=== PATIENT | female | born 1995 | race Caucasian/White ===

== ENCOUNTER → 2021-03-21 11:49 | Outpatient (BNVA) | payer OTHER, SELFPAY | PROVIDERS: Visit Provider Obstetrics & Gynecology ==

== ENCOUNTER 2021-04-15 22:56 | Emergency (ER) | payer OTHER, SELFPAY ==
[2021-04-15 23:09] VITALS: BP 124/81; PULSE 103; RESP 20; TEMP 36; O2SAT 98; BMI 29.0
--- NOTE | 2021-04-15 23:34 | ED.URI ---
HPI - URI/Sore Throat General Chief Complaint: Upper Respiratory Symptoms Stated Complaint: flu like symptoms Time Seen by Provider: 04/15/21 23:34 Source: patient Mode of arrival: ambulatory Limitations: no limitations History of Present Illness HPI Narrative: Patient comes emergency room complaining of body aches. Patient also complaining of dry cough for 1 week. Patient states that 2 of her 3 children tested positive for COVID. Patient denies fever chills, no respiratory difficulty, no chest pain. Related Data Home Medications Medication Instructions Recorded Confirmed fluticasone propionate 50 1 spray INTRANASAL DAILY 03/17/20 03/17/20 mcg/actuation nasal spray,suspension medroxyprogesterone 150 mg/mL 1 ml IM [id number] 03/17/20 03/17/20 intramuscular suspension Previous Rx's Medication Instructions Recorded albuterol sulfate 90 mcg/actuation 2 puff PO Q6H PRN 30 Days #6.7 g 02/12/21 aerosol inhaler ibuprofen 600 mg tablet 600 mg PO TID PRN #30 tab 04/16/21 Allergies Allergy/AdvReac Type Severity Reaction Status Date / Time No Known Allergies Allergy Verified 03/13/20 08:08 Review of Systems Review of Systems: Constitutional : No Weight loss, No Fever, No Chills, No Night Sweats, No Fatigue, complaining of diffuse body aches and malaise ENT/Mouth : No Hearing loss, No Ear Pain, No Nasal Congestion, No Sinus Pain, No Hoarseness, No sore throat, No Rhinorrhea, No Swallowing Difficulty Eyes: No Eye Pain, No Swelling, No Redness, No Foreign Body, No Discharge, No Vision Changes Cardiovascular : No Chest Pain, No SOB, No Dyspnea on Exertion, No Orthopnea, No Edema, No Palpitations Respiratory : Complaining of dry Cough, No Sputum, No Wheezing, No Smoke Exposure, No Dyspnea Gastrointestinal : No Nausea, No Vomiting, No Diarrhea, No Constipation, No abdominal Pain, No Hematochezia, No Melena Genitourinary : no irregular bleeding, No Dysuria, No Urinary Frequency, No Hematuria, No Urinary Incontinence, No Urgency, No Flank Pain, No Urinary Flow Changes, No Hesitancy Musculoskeletal : No joint pain, No Myalgias, No Joint Swelling Skin : No Skin Lesions, No rash Neuro : No Weakness, No Numbness, No Paresthesias, No Loss of Consciousness, No Dizziness, No Headache Psych : No Anxiety/Panic, No Depression, No SI/HI/AH/VH, No Social Issues, Heme/Lymph: No Bruising, No Bleeding,No Lymphadenopathy Endocrine : No Polyuria, No Polydipsia, No Temperature Intolerance [facility] Past Medical History Medical History History of asthma Social History Social History Alcohol intake: never Advance Directives: No Advance Directives Information Provided: Yes Patient : No Physical Exam Vital Signs: Vital Signs: Last Vital Signs Temp 96.8 F 04/15/21 23:09 Pulse 103 H 04/15/21 23:09 Resp 20 04/15/21 23:09 BP 124/81 04/15/21 23:09 Pulse Ox 98 04/15/21 23:09 BMI result Body Mass Index 29.0 Const: Other: Appearance: Alert. Oriented X3. No acute distress. Eyes: Pupils equal, round and reactive to light. ENT: Pharynx normal. Neck: Normal inspection. Neck supple. No lymph nodes noted. No crepitus CVS: Normal heart rate and rhythm. Pulses normal. Normal S1 and S2 Respiratory: No respiratory distress. Breath sounds normal. No Wheezing. No rales Abdomen: Soft and nontender. No rigidity. No distention. good BS x4 Skin: Skin warm and dry. Normal skin color. Normal skin turgor. Extremities: No lower extremity edema. No Lacerations. No Rash Neuro: Oriented X 3. No motor deficit. No sensory deficit. Moving all extermities. No slurred speech. Course Course Course Narrative: positive for COVID-19. MDM - URI/Sore Throat Lab Data Labs: Lab Results 04/15/21 Range/Units 23:31 COVID-19 ([facility]) Positive A (Negative) COVID-19 Clin Com See Note Discharge Plan Discharge Clinical Impression: COVID-19 Patient Disposition: Home, Self-Care Instructions: COVID-19 (Coronavirus Disease 2019) (ED) Additional Instructions: Please follow-up with your primary care physician tomorrow. If you have any worsening or new symptoms, please return to the emergency room or call 911 Prescriptions: New ibuprofen 600 mg tablet 600 mg PO TID PRN (Reason: fever or pain) Qty: 30 RF: 0 No Action albuterol sulfate 90 mcg/actuation HFA aerosol inhaler 2 puff PO Q6H PRN (Reason: Shortness Of Breath) 30 Days Qty: 6.7 RF: 4 fluticasone propionate 50 mcg/actuation spray,suspension 1 spray intranasal DAILY RF: 0 medroxyprogesterone 150 mg/mL suspension 1 ml IM [id number] RF: 0
[2021-04-15 23:57] LABS: COVID-19 Test Positive (Negative)
[2021-04-16] MEDS: Ibuprofen 600 MG TABLET PO (00:46)
== END 2021-04-16 00:59 | disposition home or self-care (01) ==
PROVIDERS: Emergency Provider Emergency Medicine; PCP Internal Medicine
DX: U07.1 COVID-19 (principal)
CPT/HCPCS: 36415; 87635; 99283; 99284

== ENCOUNTER 2021-05-01 22:36 | Emergency (ER) | payer OTHER, SELFPAY ==
[2021-05-01 22:43] VITALS: BP 87/60; PULSE 110; RESP 32; TEMP 36.6; O2SAT 98; BMI 27.4
[2021-05-01] MEDS: Albuterol Sulfate (0.083%) 2.5 MG/3 ML VIAL.NEB 10 MG INHALE (23:10)
--- NOTE | 2021-05-01 23:10 | ED.SOB ---
HPI - SOB/Dyspnea General Chief Complaint: Dyspnea Stated Complaint: asthma Time Seen by Provider: 05/01/21 22:52 Source: patient Mode of arrival: ambulatory Limitations: no limitations History of Present Illness HPI Narrative: Patient comes to emergency room, and asthma exacerbation over the last 5 days. Patient has been using inhaler without relief. Patient states she tested positive for COVID 2 weeks ago. Related Data Home Medications Medication Instructions Recorded Confirmed fluticasone propionate 50 1 spray INTRANASAL DAILY 03/17/20 03/17/20 mcg/actuation nasal spray,suspension medroxyprogesterone 150 mg/mL 1 ml IM [id number] 03/17/20 03/17/20 intramuscular suspension Previous Rx's Medication Instructions Recorded albuterol sulfate 90 mcg/actuation 2 puff PO Q6H PRN 30 Days #6.7 g 02/12/21 aerosol inhaler ibuprofen 600 mg tablet 600 mg PO TID PRN #30 tab 04/16/21 albuterol sulfate 90 mcg/actuation 2 puff INHALATION Q4-6H PRN #6.7 g 05/02/21 aerosol inhaler (ProAir HFA) prednisone 50 mg tablet 50 mg PO DAILY #5 tab 05/02/21 Allergies Allergy/AdvReac Type Severity Reaction Status Date / Time No Known Allergies Allergy Verified 05/01/21 22:46 Review of Systems Review of Systems: Constitutional : No Weight loss, No Fever, No Chills, No Night Sweats, No Fatigue, No Malaise ENT/Mouth : No Hearing loss, No Ear Pain, No Nasal Congestion, No Sinus Pain, No Hoarseness, No sore throat, No Rhinorrhea, No Swallowing Difficulty Eyes: No Eye Pain, No Swelling, No Redness, No Foreign Body, No Discharge, No Vision Changes Cardiovascular : No Chest Pain, No SOB, No Dyspnea on Exertion, No Orthopnea, No Edema, No Palpitations Respiratory : Complaining of, no sputum, complaining of wheezing and shortness of breath Gastrointestinal : No Nausea, No Vomiting, No Diarrhea, No Constipation, No abdominal Pain, No Hematochezia, No Melena Genitourinary : no irregular bleeding, No Dysuria, No Urinary Frequency, No Hematuria, No Urinary Incontinence, No Urgency, No Flank Pain, No Urinary Flow Changes, No Hesitancy Musculoskeletal : No joint pain, No Myalgias, No Joint Swelling Skin : No Skin Lesions, No rash Neuro : No Weakness, No Numbness, No Paresthesias, No Loss of Consciousness, No Dizziness, No Headache Psych : No Anxiety/Panic, No Depression, No SI/HI/AH/VH, No Social Issues, Heme/Lymph: No Bruising, No Bleeding,No Lymphadenopathy Endocrine : No Polyuria, No Polydipsia, No Temperature Intolerance PMF Past Medical History Medical History History of asthma Social History Social History Alcohol intake: never Advance Directives: No Patient : No Physical Exam Vital Signs: Vital Signs: Last Vital Signs Temp 97.9 F 05/01/21 22:43 Pulse 93 05/01/21 23:11 Resp 25 H 05/01/21 23:11 BP 87/60 L 05/01/21 22:43 Pulse Ox 98 05/01/21 22:43 BMI result Body Mass Index 27.4 Const: Other: Appearance: Alert. Oriented X3. Eyes: Pupils equal, round and reactive to light. ENT: Pharynx normal. Neck: Normal inspection. Neck supple. No lymph nodes noted. No crepitus CVS: Normal heart rate and rhythm. Pulses normal. Normal S1 and S2 Respiratory: In moderate respiratory distress, speaking in fragmented sentences, bilateral wheezing Abdomen: Soft and nontender. No rigidity. No distention. good BS x4 Skin: Skin warm and dry. Normal skin color. Normal skin turgor. Extremities: No lower extremity edema. No lower extremity edema. No Lacerations. No Rash Neuro: Oriented X 3. No motor deficit. No sensory deficit. Moving all extermities. No slurred speech. Course Course Course Narrative: Patient no longer wheezing, oxygen saturation 99% on room a, on physical exam patient is no longer wheezing, speaking full sentences, patient asymptomatic. MDM - SOB/Dyspnea Lab Data Labs: Lab Results 05/01/21 Range/Units 23:24 COVID-19 ([facility]) Negative (Negative) COVID-19 Clin Com See Note Discharge Plan Discharge Clinical Impression: Asthma with exacerbation Qualifiers: Asthma severity: unspecified severity Asthma persistence: unspecified Qualified Code(s): J45.901 - Unspecified asthma with (acute) exacerbation Patient Disposition: Home, Self-Care Instructions: Asthma (ED) Additional Instructions: Please follow-up with your primary care physician tomorrow. If you have any worsening or new symptoms, please return to the emergency room or call 911 Prescriptions: New albuterol sulfate [ProAir HFA] 90 mcg/actuation HFA aerosol inhaler 2 puff inhalation Q4-6H PRN (Reason: shortness of breath or wheezing) Qty: 6.7 RF: 0 prednisone 50 mg tablet 50 mg PO DAILY Qty: 5 RF: 0 No Action albuterol sulfate 90 mcg/actuation HFA aerosol inhaler 2 puff PO Q6H PRN (Reason: Shortness Of Breath) 30 Days Qty: 6.7 RF: 4 fluticasone propionate 50 mcg/actuation spray,suspension 1 spray intranasal DAILY RF: 0 medroxyprogesterone 150 mg/mL suspension 1 ml IM [id number] RF: 0 ibuprofen 600 mg tablet 600 mg PO TID PRN (Reason: fever or pain) Qty: 30 RF: 0
[2021-05-01 23:11] VITALS: PULSE 93; RESP 25; O2SAT 98
[2021-05-01] MEDS: Magnesium Sulfate/H2O 2 GM/50 ML PIGGYBACK IV (23:16)
[2021-05-01] MEDS: methylPREDNISolone Sod Succ 125 MG/2 ML VIAL IVPUSH (23:16)
[2021-05-01] MEDS: 0.9 % Sodium Chloride 1,000 ML 999 ML IVCONT (23:16)
[2021-05-01 23:53] LABS: COVID-19 Test Negative (Negative); IDNOW Serial# 9DD0AD1C
== END 2021-05-02 02:03 | disposition home or self-care (01) ==
PROVIDERS: Emergency Provider Emergency Medicine; PCP Internal Medicine
DX: J45.901 Unspecified asthma with (acute) exacerbation (principal); Z20.822 Contact with and (suspected) exposure to COVID-19
CPT/HCPCS: 36415; 87635; 94640; 94644; 96365; 96366; 96375; 99284; J2930; J3475

== ENCOUNTER 2021-05-21 09:04 | Outpatient (REF) | payer OTHER, SELFPAY ==
[2021-05-21 16:04] LABS: CT PCR NOT DETECTED (Not Detect.); NG PCR NOT DETECTED (Not Detect.)
== END 2021-05-21 09:05 | disposition home or self-care (01) ==
LOC: HO.LAB 09:04
PROVIDERS: PCP Internal Medicine; Visit Provider Obstetrics & Gynecology
DX: Z30.430 Encounter for insertion of intrauterine contraceptive device (principal)
CPT/HCPCS: 58300; 87491; 87591

== ENCOUNTER 2021-06-04 12:22 | Outpatient (REF) | payer OTHER, SELFPAY ==
[2021-06-05 09:05] LABS: HBc Num1 0.06 S/CO (0.00-0.79); HBsAGNum1 0.19 S/CO (0.00-0.99); Hepatitis B Core Antibody Nonreactive (Nonreactive); Hepatitis B Surface Antigen Negative (Negative); ~Hepatitis B Surface Antibody NONREACTIVE (Nonreactive)
[2021-06-05 17:27] LABS: Rubella IgG Antibody 7.98 Index
[2021-06-06 18:21] LABS: TS Negative Control Passed; TS Panel A 2; TS Panel B 0; TS Positive Control Passed; TSpotTB Negative (Negative)
== END 2021-06-04 12:23 | disposition home or self-care (01) ==
LOC: HO.LAB 12:22
PROVIDERS: PCP Internal Medicine; Visit Provider Nurse Practitioner Family
DX: Z01.84 Encounter for antibody response examination (principal); Z11.1 Encounter for screening for respiratory tuberculosis; Z13.9 Encounter for screening, unspecified
CPT/HCPCS: 36415; 86481; 86704; 86706; 86735; 86762; 86765; 86787; 87340

== ENCOUNTER → 2021-06-20 12:05 | Outpatient (BNVA) | payer OTHER, SELFPAY | PROVIDERS: PCP Internal Medicine; Visit Provider Obstetrics & Gynecology | DX: Z30.431 Encounter for routine checking of intrauterine contraceptive device (principal) | CPT/HCPCS: 81025; 99212 ==

== ENCOUNTER 2021-09-04 11:14 | Outpatient (REF) | payer OTHER, SELFPAY ==
--- NOTE | ~2021-09-04 | XR_ITS ---
EXAMINATION: XR HIP, RIGHT CLINICAL INFORMATION: Pain right hip. COMPARISON: None TECHNIQUE: Two views of the right hip. FINDINGS: Bones and soft tissues are normal. No fracture. Alignment is anatomic. Hip joint space is maintained. Incidental finding of an IUD is noted in the pelvis. XR/XR hip RT min 2V IMPRESSION: Normal right hip.
[2021-09-04 11:40] LABS: MANUAL DIFF FLAG NO
[2021-09-04 12:05] LABS: Basophils Absolute Auto 0.1 X10*3/uL (0.0-0.2); Basophils Percent Auto 0.8 % (0-2); Eosinophils Absolute Auto 0.5 X10*3/uL (0.0-0.4); Eosinophils Percent Auto 5.5 % (0-4); Hematocrit 43.7 % (37.0-47.0); Hemoglobin 14.2 g/dl (12.0-16.0); Imm Gran Abs Auto 0.02 X10*3/uL (0.00-0.03); Imm Gran Pct Auto 0.2 % (0.0-0.4); Lymphocytes Absolute Auto 2.6 X10*3/uL (1.2-4.9); Lymphocytes Percent Auto 31.2 % (20-40); Mean Corpuscular HGB Conc 32.5 g/dl (31.0-35.0); Mean Corpuscular Hemoglobin 27.6 pg (27.0-33.0); Mean Platelet Volume 10.1 fL (9.4-12.3); Monocytes Absolute Auto 0.5 X10*3/uL (0.1-1.2); Monocytes Percent Auto 5.7 % (2-11); Neutrophils Absolute Auto 4.7 x10*3/uL (2.0-8.3); Neutrophils Percent Auto 56.6 % (45-73); Platelet Count 272 X10*3/uL (160-400); Red Blood Count 5.14 X10*6/uL (4.20-5.50); Red Cell Distribution Width 12.7 % (11.0-16.0); White Blood Count 8.4 X10*3/uL (4.8-10.8)
[2021-09-04 12:42] LABS: Alanine Aminotransferase 14 U/L (0-31); Albumin Level 4.3 g/dL (3.5-5.0); Alkaline Phosphatase 92 U/L (39-117); Anion Gap 11 (12-20); Aspartate Amino Transferase 14 U/L (5-31); Bilirubin Total 0.6 mg/dL (0.0-1.0); Blood Urea Nitrogen 19 mg/dL (9-16); Calcium 9.8 mg/dL (8.4-10.2); Carbon Dioxide 28 mmol/L (22-29); Chloride 103 mmol/L (96-108); Cholesterol 189 mg/dL; Estimated Glomerular Filt Rate > 60; Glucose Fasting 90 mg/dL (60-99); HDL Cholesterol 43 mg/dL; LDL Cholesterol Calculated 107 mg/dl; Potassium 4.7 mmol/L (3.3-5.1); Sodium 137 mmol/L (135-145); Total Protein 7.3 g/dL (6.5-8.0); Triglycerides 199 mg/dL
[2021-09-04 12:45] LABS: ~HepC Num1 0.55 S/CO (0.00-0.79); ~Hepatitis C Antibody Nonreactive (Nonreactive)
[2021-09-04 12:48] LABS: Thyroid Stimulating Hormone 0.85 uIU/mL (0.32-4.0); Vitamin D 25-OH Total 16.3 ng/mL (>30)
[2021-09-04 13:23] LABS: UPreg QC Valid YES; Urine Pregnancy NEGATIVE (NEGATIVE)
== END 2021-09-04 11:15 | disposition home or self-care (01) ==
LOC: HO.XRAY 11:14
PROVIDERS: Absent Provider Nurse Practitioner Family; PCP Internal Medicine; Visit Provider Internal Medicine
DX: M25.551 Pain in right hip (principal); E66.9 Obesity, unspecified; Z68.31 Body mass index [BMI] 31.0-31.9, adult; E55.9 Vitamin D deficiency, unspecified; D64.9 Anemia, unspecified; E78.5 Hyperlipidemia, unspecified; Z78.9 Other specified health status
CPT/HCPCS: 36415; 73502; 80053; 80061; 81025; 82306; 84443; 85025; 86803

== ENCOUNTER 2021-10-10 10:42 | Outpatient (REF) | payer OTHER, SELFPAY ==
[2021-10-11 01:54] LABS: CT PCR NOT DETECTED (Not Detect.); NG PCR NOT DETECTED (Not Detect.)
[2021-10-11 11:03] LABS: BV Int Neg Control Negative (Negative); BV Int Pos Control Positive (Positive)
== END 2021-10-10 10:43 | disposition home or self-care (01) ==
LOC: HO.LAB 10:42
PROVIDERS: Visit Provider Advanced Practice Midwife
DX: Z01.419 Encounter for gynecological examination (general) (routine) without abnormal findings (principal); Z20.2 Contact with and (suspected) exposure to infections with a predominantly sexual mode of transmission; Z79.899 Other long term (current) drug therapy
CPT/HCPCS: 87480; 87491; 87510; 87591; 87660; 88142

== ENCOUNTER 2021-12-04 12:03 | Outpatient (REF) | payer OTHER, SELFPAY ==
[2021-12-05 12:21] LABS: CT PCR NOT DETECTED (Not Detect.); NG PCR NOT DETECTED (Not Detect.)
[2021-12-05 13:05] LABS: BV Int Neg Control Negative (Negative); BV Int Pos Control Positive (Positive)
== END 2021-12-04 12:04 | disposition home or self-care (01) ==
LOC: HO.LAB 12:03
PROVIDERS: Visit Provider Advanced Practice Midwife
DX: Z32.02 Encounter for pregnancy test, result negative (principal); Z20.2 Contact with and (suspected) exposure to infections with a predominantly sexual mode of transmission; N92.6 Irregular menstruation, unspecified
CPT/HCPCS: 81025; 87480; 87491; 87510; 87591; 87660; 99212

== ENCOUNTER 2021-12-06 11:51 | Outpatient (REF) | payer OTHER, SELFPAY ==
[2021-12-06 12:53] LABS: HCG Quantitative < 2 mIU/mL
[2021-12-06 13:04] LABS: HIV AB/AG Nonreactive (Nonreactive); HIV Num 1 0.19 S/CO (0.00-0.99); Hepatitis B Surface Antigen Negative (Negative); ~HepC Num1 0.68 S/CO (0.00-0.79); ~Hepatitis C Antibody Nonreactive (Nonreactive)
[2021-12-07 06:24] LABS: Syphilis Screen Nonreactive (Nonreactive)
== END 2021-12-06 11:52 | disposition home or self-care (01) ==
LOC: HO.LAB 11:51
PROVIDERS: PCP Internal Medicine; Visit Provider Advanced Practice Midwife
DX: Z01.411 Encounter for gynecological examination (general) (routine) with abnormal findings (principal); Z11.4 Encounter for screening for human immunodeficiency virus [HIV]; Z20.2 Contact with and (suspected) exposure to infections with a predominantly sexual mode of transmission; N92.6 Irregular menstruation, unspecified
CPT/HCPCS: 36415; 84702; 86780; 86803; 87340; 87389

== ENCOUNTER → 2022-03-14 10:27 | Outpatient (BNVA) | payer OTHER, SELFPAY | PROVIDERS: PCP Internal Medicine; Visit Provider Obstetrics & Gynecology | DX: Z30.432 Encounter for removal of intrauterine contraceptive device (principal) | CPT/HCPCS: 58301; 81025 ==

== ENCOUNTER 2022-04-02 10:20 | Emergency (ER) | payer OTHER, SELFPAY ==
[2022-04-02 10:23] VITALS: BP 150/77; PULSE 70; RESP 16; TEMP 36.6; O2SAT 99; BMI 28.5
--- NOTE | 2022-04-02 10:54 | ED.FEMALEGU ---
HPI - Female Genitourinary General Chief complaint: Urogenital-Female Stated complaint: UTI? Time Seen by Provider: 04/02/22 10:28 Source: patient Mode of arrival: ambulatory Limitations: no limitations History of Present Illness HPI Narrative: 27-year-old female here with lower suprapubic discomfort and cramping, urinary frequency, nausea. Did a urine dip at her place of work which showed leuks and red blood cells. Concern for UTI. No vaginal discharge, rashes or lesions, vomiting, fever, back pain. Patient is sexually active with 1 male partner. No new partners. Does not use condoms. Last menstrual cycle 03/24 Related Data Home Medications Medication Instructions Recorded Confirmed copper 380 square mm intrauterine intrauterine 06/20/21 12/04/21 device (ParaGard T 380A) Previous Rx's Medication Instructions Recorded albuterol sulfate 90 mcg/actuation 2 puff inhalation Q4-6H PRN 08/30/21 aerosol inhaler (ProAir HFA) shortness of breath or wheezing #6.7 grams fluticasone propionate 44 1 puff inhalation BID 30 days 08/30/21 mcg/actuation HFA aerosol inhaler #10.6 grams (Flovent HFA) nitrofurantoin 100 mg PO Q12H 5 days #10 caps 04/02/22 monohydrate/macrocrystals 100 mg capsule (Macrobid) phenazopyridine 200 mg tablet 200 mg PO TID PRN pain 6 doses #10 04/02/22 (Pyridium) tabs Allergies Allergy/AdvReac Type Severity Reaction Status Date / Time No Known Allergies Allergy Verified 03/14/22 10:38 Review of Systems Review of Systems: Yes all other systems are reviewed and are negative Constitutional: Constitutional: Reports no additional constitutional complaints, Denies body ache(s), Denies chills, Denies fever(s), Denies headache(s) and Denies weakness Eyes: Eyes: Reports no additional eye complaints and Denies change in vision ENT: Reports system reviewed and no additional complaints, except as documented, Denies dizziness, Denies headache(s), Denies nasal congestion, Denies nasal discharge and Denies neck pain Cardiovascular: Cardiovascular: Reports no additional cardiovascular complaints, Denies chest pain, Denies leg edema and Denies dyspnea Respiratory: Respiratory: Reports no additional respiratory complaints, Denies cough and Denies dyspnea Gastrointestinal: Gastrointestinal: Reports no additional gastrointestinal complaints, Denies abdominal pain, Denies diarrhea, Denies nausea and Denies vomiting Genitourinary: Genitourinary: Reports no additional female genitourinary complaints, Denies dysuria, Reports pelvic pain, Denies flank pain, Denies urinary incontinence, Denies urinary hesitancy, Denies urinary urgency and Denies vaginal discharge Comments: +frequent urination Musculoskeletal: Musculoskeletal: Reports no additional musculoskeletal complaints, Denies back pain, Denies arthralgias, Denies joint swelling, Denies neck pain, Denies numbness and Denies tingling Integumentary/Breasts: Skin/Breast: Reports system reviewed and no additional complaints, except as docu and Denies rash Neurologic: Reports system reviewed and no additional complaints, except as documented, Denies Abnormal speech present, Denies dizziness, Denies headache(s), Denies numbness, Denies tingling and Denies weakness PMFSH Past Medical History Attestation statement: The following information was validated with the patient. Source: old records reviewed and nursing notes reviewed Medical History Class 1 obesity with body mass index (BMI) of 31.0 to 31.9 in adult History of asthma Moderate persistent asthma Physical exam Right hip pain Surgical History No pertinent past surgical history Family History Family History Father Diabetes Alzheimer disease Hypercholesteremia Mother Anxiety Depression Diabetes Social History Social History Housing: Apartment Alcohol intake: never Patient Tobacco Use Status: Never used Tobacco e-Cigarette/Vaping Use: Never Used Second Hand Smoke Exposure: No Advance Directives: No Advance Directives Information Provided: No service: No 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 Current occupational exposures/hazards: No Cognitive needs: No Hearing needs: No Vision needs: No Physical Exam Vital Signs: Vital Signs: Last Vital Signs Temp 98 F 04/02/22 10:23 Pulse 70 04/02/22 10:23 Resp 16 04/02/22 10:23 BP 150/77 H 04/02/22 10:23 Pulse Ox 99 04/02/22 10:23 O2 Del Method 04/02/22 10:23 BMI result Body Mass Index 28.5 Const: General: cooperative, healthy appearing, comfortable and no acute distress Orientation/consciousness: patient oriented x3 Limitations: no limitations HEENT: Head: Yes normal to inspection Ears: hearing grossly normal bilaterally General nose exam: Normal external nose present Face and sinus: Yes normal facial exam Mouth: Normal oral and palatal mucosa present Throat: Yes posterior oropharynx normal Eyes: General: appearance normal, both eyes and all related structures Pupils: Equal, round and reactive pupils present Neck: Neck: Yes normal visual inspection Chest: Chest palpation & inspection: normal inspection of the chest Resp: Effort & Inspection: normal respiratory effort Auscultation: clear to auscultation bilaterally Cardio: Rate: regular rate Rhythm: regular rhythm Peripheral pulses: Peripheral pulses 2+ throughout GI: Inspection: Yes normal to inspection Palpation (GI): Soft to palpation and nontender Auscultation: normal bowel sounds : General: Yes no CVA tenderness Back/Spine/Pelvis: Back: no CVA tenderness Thoracic/Lumbar Spine: thoracic and lumbar spine normal to inspection Skin: General skin exam: no rashes or lesions noted Neuro: General: patient oriented x3, no focal motor deficits and normal sensation to monofilament Cranial nerves: Yes Equal, round and reactive pupils present Cognition (Neuro): normal cognition Speech: No Abnormal speech present Gait exam (Neuro): Normal gait present Motor exam (neuro): 5/5 motor strength present throughout Extrem: General: Yes normal to inspection Course Course Course Narrative: UA consistent with UTI. Patient be treated with antibiotics, Pyridium p.r.n.. Reviewed worrisome signs symptoms of when to return to the emergency room. Comfortable plan for discharge home. MDM - Female Genitourinary MDM Narrative Medical decision making narrative: UTI symptoms x several days. No flank pain, fever or vomiting to suggest pyelonephritis. Will send UA and urine Medical Records Attestation: I reviewed the patient's medical records. Lab Data Attestation: I reviewed the patient's lab results. Labs: Lab Results 04/02/22 04/02/22 Range/Units 10:50 10:50 Urine Color Yellow Urine Appearance Cloudy Urine pH 6.0 (5.0-9.0) Ur Specific [place] 1.020 (1.005-1.025) Urine Protein Trace (Neg-Trace) mg/dL Urine Glucose (UA) Negative (Negative) mg/dL Urine Ketones Negative (Negative) mg/dL Urine Blood Trace H (Negative) Urine Nitrite Negative (Negative) Ur Leukocyte Esterase Moderate (2+) H (Negative) Urine RBC 3-5 H (0-2) /HPF Urine WBC >50 H (0-5) /HPF Ur Squamous Epith Cells >20 (0-2) /HPF Urine Bacteria 3+ (None Seen) Hyaline Casts 0-2 (0-2) /LPF Urine Test NEGATIVE (NEGATIVE) Discharge Plan Discharge Clinical Impression: Urinary tract infection Patient Disposition: Home, Self-Care Instructions: Urinary Tract Infection in Women (ED) Additional Instructions: Increase fluids at home Prescriptions: New nitrofurantoin monohyd/m-cryst [Macrobid] 100 mg capsule 100 mg PO Q12H 5 Days Qty: 10 0RF Rx Instructions: must administer with a meal/food phenazopyridine [Pyridium] 200 mg tablet 200 mg PO TID PRN (Reason: pain) Qty: 10 0RF No Action albuterol sulfate [ProAir HFA] 90 mcg/actuation HFA aerosol inhaler 2 puff inhalation Q4-6H PRN (Reason: shortness of breath or wheezing) Qty: 6.7 0RF Flovent HFA 44 mcg/actuation HFA aerosol inhaler 1 puff inhalation BID 30 Days Qty: 10.6 6RF Rx Instructions: administer with spacer ParaGard T 380A 380 square mm intrauterine device intrauterine Referrals: Jacque Hunter MD [Primary Care Provider] - 1 week Stand Alone Forms: Work/School Release Interventions: ED Discharge Assessment Last Done: 04/02/22 11:15 Discharge Date/Time: 04/02/22 11:15
[2022-04-02 10:57] LABS: Appearance Urine Cloudy; Color Urine Yellow; Glucose Urine UA Negative (Negative); Leukocyte Esterase Urine Moderate (2+) (Negative); Nitrite Urine Negative (Negative); UMIC TRIGGER UACC YES; UPreg QC Valid YES; Urine Blood Trace (Negative); Urine Ketones Negative (Negative); Urine Pregnancy NEGATIVE (NEGATIVE); Urine Protein Trace mg/dL (Neg-Trace)
[2022-04-02 10:59] LABS: Bacteria Urine 3+ (None Seen); Hyaline Casts Urine 0-2 /LPF (0-2); Squamous Epithelial Cell Urine >20 /HPF (0-2); UACC Culture Trigger YES; WBC Urine >50 /HPF (0-5)
== END 2022-04-02 11:15 | disposition home or self-care (01) ==
PROVIDERS: Emergency Provider Emergency Medicine; PCP Internal Medicine
DX: N39.0 Urinary tract infection, site not specified (principal); R35.0 Frequency of micturition
CPT/HCPCS: 81001; 81025; 87086; 87088; 87186; 99282; 99283

== ENCOUNTER 2022-04-24 10:39 | Emergency (ER) | payer OTHER, SELFPAY ==
[2022-04-24 11:47] VITALS: BP 137/102; PULSE 121; RESP 17; TEMP 36.6; O2SAT 98; BMI 28.5
--- NOTE | 2022-04-24 11:47 | ED.ABDPAIN ---
HPI - Abdominal Pain General Chief Complaint: General Medical Stated Complaint: flu like symptoms, , stomach cramp Time Seen by Provider: 04/24/22 15:12 Source: patient Mode of arrival: ambulatory Limitations: no limitations History of Present Illness HPI narrative: 27 yo female here with flu like symptoms (cough, congestion, body aches) since last evening as well as lower abdominal cramping (last night). Patient reports she is 1 month (1st appt 06/03 [facility]). No vaginal bleeding. Has not had an US. No chest pain, shortness of breath, fevers, neck pain or neck stiffness, skin rash, headache. Related Data Home Medications Medication Instructions Recorded Confirmed copper 380 square mm intrauterine intrauterine 06/20/21 12/04/21 device (ParaGard T 380A) Previous Rx's Medication Instructions Recorded albuterol sulfate 90 mcg/actuation 2 puff inhalation Q4-6H PRN 08/30/21 aerosol inhaler (ProAir HFA) shortness of breath or wheezing #6.7 grams fluticasone propionate 44 1 puff inhalation BID 30 days 08/30/21 mcg/actuation HFA aerosol inhaler #10.6 grams (Flovent HFA) nitrofurantoin 100 mg PO Q12H 5 days #10 caps 04/02/22 monohydrate/macrocrystals 100 mg capsule (Macrobid) phenazopyridine 200 mg tablet 200 mg PO TID PRN pain 6 doses #10 04/02/22 (Pyridium) tabs nitrofurantoin 100 mg PO Q12H 5 days #10 caps 04/24/22 monohydrate/macrocrystals 100 mg capsule (Macrobid) oseltamivir 75 mg capsule (Tamiflu) 75 mg PO Q12H 5 days #10 caps 04/24/22 Allergies Allergy/AdvReac Type Severity Reaction Status Date / Time No Known Allergies Allergy Verified 03/14/22 10:38 Review of Systems Review of Systems Yes all other systems are reviewed and are negative Constitutional: Reports no additional constitutional complaints, Reports body ache(s), Denies chills, Denies fever(s), Denies headache(s) and Denies weakness Eyes: Reports no additional eye complaints and Denies change in vision Reports system reviewed and no additional complaints, except as documented, Denies dizziness, Denies headache(s), Reports nasal congestion, Denies nasal discharge and Denies neck pain Cardiovascular: Reports no additional cardiovascular complaints, Denies chest pain, Denies leg edema and Denies dyspnea Respiratory: Reports no additional respiratory complaints, Reports cough and Denies dyspnea Gastrointestinal: Reports no additional gastrointestinal complaints, Reports abdominal pain, Denies diarrhea, Denies nausea and Denies vomiting Genitourinary: Reports no additional female genitourinary complaints and Denies urinary incontinence Musculoskeletal: Reports no additional musculoskeletal complaints, Denies back pain, Denies arthralgias, Denies joint swelling, Denies neck pain, Denies numbness and Denies tingling Skin/Breast: Reports system reviewed and no additional complaints, except as docu and Denies rash Reports system reviewed and no additional complaints, except as documented, Denies dizziness, Denies headache(s), Denies numbness, Denies tingling and Denies weakness PMFSH Past Medical History Attestation statement: The following information was validated with the patient. Source: old records reviewed and nursing notes reviewed Medical History Class 1 obesity with body mass index (BMI) of 31.0 to 31.9 in adult History of asthma Moderate persistent asthma Physical exam Right hip pain Surgical History No pertinent past surgical history Family History Family History Father Diabetes Alzheimer disease Hypercholesteremia Mother Anxiety Depression Diabetes Social History Social History Housing: Apartment Alcohol intake: never Patient Tobacco Use Status: Never used Tobacco e-Cigarette/Vaping Use: Never Used Second Hand Smoke Exposure: No Advance Directives: No Advance Directives Information Provided: No service: No 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 Current occupational exposures/hazards: No Cognitive needs: No Hearing needs: No Vision needs: No Physical Exam ED Vital Signs: Vital Signs - 24 hr 04/24/22 11:47 04/24/22 15:17 Temperature 97.9 F 101.5 F H Pulse Rate 121 H 116 H Respiratory Rate 17 20 Blood Pressure 137/102 H 133/72 Pulse Oximetry 98 98 Oxygen Delivery Method Room Air Room Air BMI result Body Mass Index 28.5 Const General: cooperative, healthy appearing, comfortable and no acute distress Orientation/consciousness: patient oriented x3 Limitations: no limitations HENMT Head: Yes normal to inspection Ears: hearing grossly normal bilaterally and TM's normal bilaterally General nose exam: Normal external nose present Face and sinus: Yes normal facial exam Mouth: Normal oral and palatal mucosa present Throat: Yes posterior oropharynx normal, Yes tonsils normal and Yes uvula midline Eyes General: appearance normal, both eyes and all related structures Pupils: Equal, round and reactive pupils present Neck Neck: Yes normal visual inspection, Yes full ROM, Yes no lymphadenopathy and Yes no meningeal signs Chest Chest palpation & inspection: normal inspection of the chest Resp Effort & Inspection: normal respiratory effort Auscultation: clear to auscultation bilaterally Cardio Rate: regular rate Rhythm: regular rhythm Peripheral pulses: Peripheral pulses 2+ throughout GI Inspection: Yes normal to inspection Palpation (GI): Soft to palpation and nontender General: Yes no CVA tenderness Back/Spine/Pelvis Back: no CVA tenderness Thoracic/Lumbar Spine: thoracic and lumbar spine normal to inspection Skin General skin exam: no rashes or lesions noted Neuro General: patient oriented x3, moves all extremities and no meningeal signs Cranial nerves: Yes Equal, round and reactive pupils present Cognition (Neuro): normal cognition Gait exam (Neuro): Normal gait present Extrem General: Yes normal to inspection, Yes no pedal edema and Yes no calf tenderness Course Course Course Narrative: This is rapid medical exam. Deferred additional HPI, ROS, PE to primary provider. 27 yo female here with flu like symptoms (cough, congestion, body aches) since last evening as well as lower abdominal cramping (last night). Patient reports she is 1 month (1st appt 06/03 [facility]). No vaginal bleeding. Has not had an US. . VSS Will order labs including quant, UA/ur preg, covid/flu/rsv testing. Reevaluation(s) Reevaluation #1: Urine negative, beta quant <2. LMP one month ago. Patient reports + home test but has not had US or any care to this point. Reevaluation #2: Influenza a screen is positive. Patient would like Tamiflu. Aware possible side effects. Urine is negative. Beta quant is negative. A be false-positive at home. Abdomen soft and nontender. Patient with fever and tachycardia secondary to fever during triage. Patient received Tylenol prior to discharge. She will recheck her fever at home. Reviewed worrisome signs and symptoms when to return to the emergency room. Comfortable plan for discharge home. Medical Decision Making Medical Decision Making [facility] Narrative: 27-year-old female here with flu like symptoms since yesterday. Also abdominal cramping with home test positive . No vaginal bleeding. Will send labs, UA, urine testing for flu, COVID, RSV Lab Data [facility] Lab Attestation statement: I reviewed the patient's lab results. Result Diagrams: 04/24/22 12:04/24/22 12: Labs: Lab Results 04/24/22 04/24/22 04/24/22 Range/Units 12: 12: 12: WBC 5.5 (4.8-10.8) X10*3/uL RBC 4.94 (4.20-5.50) X10*6/uL Hgb 13.6 (12.0-16.0) g/dl Hct 42.1 (37.0-47.0) % MCV 85.2 (80.0-98.0) fL MCH 27.5 (27.0-33.0) pg MCHC 32.3 (31.0-35.0) g/dl RDW 13.6 (11.0-16.0) % Plt Count 220 (160-400) X10*3/uL MPV 10.0 (9.4-12.3) fL Immature Gran % (Auto) 0.2 (0.0-0.4) % Neut % (Auto) 66.7 (45-73) % Lymph % (Auto) 11.0 L (20-40) % [place] % (Auto) 12.7 H (2-11) % Eos % (Auto) 8.3 H (0-4) % Baso % (Auto) 1.1 (0-2) % Lymph # (Auto) 0.6 L (1.2-4.9) X10*3/uL [place] # (Auto) 0.7 (0.1-1.2) X10*3/uL Eos # (Auto) 0.5 H (0.0-0.4) X10*3/uL Baso # (Auto) 0.1 (0.0-0.2) X10*3/uL Abs Immat Gran (auto) 0.01 (0.00-0.03) X10*3/uL Absolute Neuts (auto) 3.7 (2.0-8.3) x10*3/uL Absolute Nucleated RBC 0.000 (0.0-0.012) X10*3/uL Nucleated RBC % (auto) 0.0 (0.0-0.2) /100WBC Sodium 139 (135-145) mmol/L Potassium 4.1 (3.3-5.1) mmol/L Chloride 103 (96-108) mmol/L Carbon Dioxide 27 (22-29) mmol/L Anion Gap 13 (12-20) BUN 10 (9-16) mg/dL Creatinine 0.83 (0.5-1.4) mg/dL Estim Creat Clear Calc 121.1 Estimated GFR > 60 Random Glucose 83 (60-115) mg/dL Calcium 9.6 (8.4-10.2) mg/dL Total Bilirubin 1.0 (0.0-1.0) mg/dL Direct Bilirubin 0.4 (0.0-0.5) mg/dL AST 14 (5-31) U/L ALT 15 (0-31) U/L Alkaline Phosphatase 75 (39-117) U/L Total Protein 7.6 (6.5-8.0) g/dL Albumin 4.5 (3.5-5.0) g/dL Beta HCG, Quant < 2 mIU/mL Urine Color Urine Appearance Urine pH (5.0-9.0) Ur Specific [place] (1.005-1.025) Urine Protein (Neg-Trace) mg/dL Urine Glucose (UA) (Negative) mg/dL Urine Ketones (Negative) mg/dL Urine Blood (Negative) Urine Nitrite (Negative) Ur Leukocyte Esterase (Negative) Urine RBC (0-2) /HPF Urine WBC (0-5) /HPF Ur Squamous Epith Cells (0-2) /HPF Urine Bacteria (None Seen) Hyaline Casts (0-2) /LPF Urine Test (NEGATIVE) Influenza Type A (PCR) POSITIVE A (Negative) Influenza Type B (PCR) NEGATIVE (Negative) RSV RNA Qual (PCR) NEGATIVE (Negative) SARS-CoV-2 RNA (RT-PCR) NEGATIVE (Negative) 04/24/22 04/24/22 Range/Units 12:02 12:02 WBC (4.8-10.8) X10*3/uL RBC (4.20-5.50) X10*6/uL Hgb (12.0-16.0) g/dl Hct (37.0-47.0) % MCV (80.0-98.0) fL MCH (27.0-33.0) pg MCHC (31.0-35.0) g/dl RDW (11.0-16.0) % Plt Count (160-400) X10*3/uL MPV (9.4-12.3) fL Immature Gran % (Auto) (0.0-0.4) % Neut % (Auto) (45-73) % Lymph % (Auto) (20-40) % [place] % (Auto) (2-11) % Eos % (Auto) (0-4) % Baso % (Auto) (0-2) % Lymph # (Auto) (1.2-4.9) X10*3/uL [place] # (Auto) (0.1-1.2) X10*3/uL Eos # (Auto) (0.0-0.4) X10*3/uL Baso # (Auto) (0.0-0.2) X10*3/uL Abs Immat Gran (auto) (0.00-0.03) X10*3/uL Absolute Neuts (auto) (2.0-8.3) x10*3/uL Absolute Nucleated RBC (0.0-0.012) X10*3/uL Nucleated RBC % (auto) (0.0-0.2) /100WBC Sodium (135-145) mmol/L Potassium (3.3-5.1) mmol/L Chloride (96-108) mmol/L Carbon Dioxide (22-29) mmol/L Anion Gap (12-20) BUN (9-16) mg/dL Creatinine (0.5-1.4) mg/dL Estim Creat Clear Calc Estimated GFR Random Glucose (60-115) mg/dL Calcium (8.4-10.2) mg/dL Total Bilirubin (0.0-1.0) mg/dL Direct Bilirubin (0.0-0.5) mg/dL AST (5-31) U/L ALT (0-31) U/L Alkaline Phosphatase (39-117) U/L Total Protein (6.5-8.0) g/dL Albumin (3.5-5.0) g/dL Beta HCG, Quant mIU/mL Urine Color Yellow Urine Appearance Turbid Urine pH 5.5 (5.0-9.0) Ur Specific [place] >= 1.030 H (1.005-1.025) Urine Protein 30 (1+) H (Neg-Trace) mg/dL Urine Glucose (UA) Negative (Negative) mg/dL Urine Ketones Trace (Negative) mg/dL Urine Blood Moderate (2+) H (Negative) Urine Nitrite Negative (Negative) Ur Leukocyte Esterase Large (3+) H (Negative) Urine RBC 3-5 H (0-2) /HPF Urine WBC >50 H (0-5) /HPF Ur Squamous Epith Cells >20 (0-2) /HPF Urine Bacteria 4+ (None Seen) Hyaline Casts 3-5 (0-2) /LPF Urine Test NEGATIVE (NEGATIVE) Influenza Type A (PCR) (Negative) Influenza Type B (PCR) (Negative) RSV RNA Qual (PCR) (Negative) SARS-CoV-2 RNA (RT-PCR) (Negative) Medications Administered Discontinued Medications Generic Name Dose Route Start Last Admin Trade Name Freq PRN Reason Stop Dose Admin Acetaminophen 975 mg 04/24/22 15:17 04/24/22 15:20 Acetaminophen 325 Mg Tablet PO 04/24/22 15:18 975 mg ONCE ONE Administration Discharge Plan Discharge Clinical Impression: Influenza A, UTI (urinary tract infection) Patient Disposition: Home, Self-Care Instructions: Urinary Tract Infection in Women (ED), Influenza (ED) Additional Instructions: Increase fluids rest Motin or tylenol for pain or fever test is negative today including your blood hormone Prescriptions: New oseltamivir [Tamiflu] 75 mg capsule 75 mg PO Q12H 5 Days Qty: 10 0RF nitrofurantoin monohyd/m-cryst [Macrobid] 100 mg capsule 100 mg PO Q12H 5 Days Qty: 10 0RF Rx Instructions: must administer with a meal/food No Action nitrofurantoin monohyd/m-cryst [Macrobid] 100 mg capsule 100 mg PO Q12H 5 Days Qty: 10 0RF Rx Instructions: must administer with a meal/food phenazopyridine [Pyridium] 200 mg tablet 200 mg PO TID PRN (Reason: pain) Qty: 10 0RF albuterol sulfate [ProAir HFA] 90 mcg/actuation HFA aerosol inhaler 2 puff inhalation Q4-6H PRN (Reason: shortness of breath or wheezing) Qty: 6.7 0RF Flovent HFA 44 mcg/actuation HFA aerosol inhaler 1 puff inhalation BID 30 Days Qty: 10.6 6RF Rx Instructions: administer with spacer ParaGard T 380A 380 square mm intrauterine device intrauterine Referrals: Jacque Hunter MD [Primary Care Provider] - 1 week Stand Alone Forms: Work/School Release Interventions: ED Discharge Assessment Last Done: 04/24/22 15:23
[2022-04-24 12:08] LABS: MANUAL DIFF FLAG NO
[2022-04-24 12:14] LABS: Appearance Urine Turbid; Basophils Absolute Auto 0.1 X10*3/uL (0.0-0.2); Basophils Percent Auto 1.1 % (0-2); Color Urine Yellow; Eosinophils Absolute Auto 0.5 X10*3/uL (0.0-0.4); Eosinophils Percent Auto 8.3 % (0-4); Glucose Urine UA Negative (Negative); Hematocrit 42.1 % (37.0-47.0); Hemoglobin 13.6 g/dl (12.0-16.0); Imm Gran Abs Auto 0.01 X10*3/uL (0.00-0.03); Imm Gran Pct Auto 0.2 % (0.0-0.4); Leukocyte Esterase Urine Large (3+) (Negative); Lymphocytes Absolute Auto 0.6 X10*3/uL (1.2-4.9); Mean Corpuscular HGB Conc 32.3 g/dl (31.0-35.0); Mean Corpuscular Hemoglobin 27.5 pg (27.0-33.0); Mean Corpuscular Volume 85.2 fL (80.0-98.0); Monocytes Absolute Auto 0.7 X10*3/uL (0.1-1.2); Monocytes Percent Auto 12.7 % (2-11); Neutrophils Absolute Auto 3.7 x10*3/uL (2.0-8.3); Neutrophils Percent Auto 66.7 % (45-73); Nitrite Urine Negative (Negative); PH 5.5 (5.0-9.0); Platelet Count 220 X10*3/uL (160-400); Red Blood Count 4.94 X10*6/uL (4.20-5.50); Red Cell Distribution Width 13.6 % (11.0-16.0); Specific Gravity - Urine >= 1.030 (1.005-1.025); UMIC TRIGGER UACC YES; UPreg QC Valid YES; Urine Blood Moderate (2+) (Negative); Urine Ketones Trace mg/dL (Negative); Urine Pregnancy NEGATIVE (NEGATIVE); Urine Protein 30 (1+) mg/dL (Neg-Trace); White Blood Count 5.5 X10*3/uL (4.8-10.8)
[2022-04-24 12:26] LABS: Bacteria Urine 4+ (None Seen); Squamous Epithelial Cell Urine >20 /HPF (0-2); UACC Culture Trigger YES; WBC Urine >50 /HPF (0-5)
[2022-04-24 12:32] LABS: Alanine Aminotransferase 15 U/L (0-31); Albumin Level 4.5 g/dL (3.5-5.0); Alkaline Phosphatase 75 U/L (39-117); Anion Gap 13 (12-20); Aspartate Amino Transferase 14 U/L (5-31); Bilirubin Direct 0.4 mg/dL (0.0-0.5); Blood Urea Nitrogen 10 mg/dL (9-16); Calcium 9.6 mg/dL (8.4-10.2); Carbon Dioxide 27 mmol/L (22-29); Chloride 103 mmol/L (96-108); Creatinine Clr Calc Pharmacy 121.1; Estimated Glomerular Filt Rate > 60; Glucose Random 83 mg/dL (60-115); Potassium 4.1 mmol/L (3.3-5.1); Sodium 139 mmol/L (135-145); Total Protein 7.6 g/dL (6.5-8.0)
[2022-04-24 12:43] LABS: HCG Quantitative < 2 mIU/mL
[2022-04-24 12:49] LABS: Influenza A PCR POSITIVE (Negative); Influenza B PCR NEGATIVE (Negative); Resp Syncy Virus RNA Qual PCR NEGATIVE (Negative); SARS COV2 PCR INHOUSE NEGATIVE (Negative)
[2022-04-24 15:17] VITALS: BP 133/72; PULSE 116; RESP 20; TEMP 38.6; O2SAT 98
[2022-04-24] MEDS: Acetaminophen 325 MG TABLET 975 MG PO (15:20)
== END 2022-04-24 15:24 | disposition home or self-care (01) ==
PROVIDERS: Nurse Practitioner Family; Physician Assistant Medical; Emergency Provider Student in an Organized Health Care Education/Training Program; PCP Internal Medicine
DX: O98.511 Other viral diseases complicating pregnancy, first trimester (principal); J11.1 Influenza due to unidentified influenza virus with other respiratory manifestations; O23.41 Unspecified infection of urinary tract in pregnancy, first trimester; N39.0 Urinary tract infection, site not specified; Z3A.00 Weeks of gestation of pregnancy not specified
CPT/HCPCS: 0241U; 36415; 80048; 80076; 81001; 81025; 84702; 85025; 87086; 99283

== ENCOUNTER 2022-07-31 07:03 | Emergency (ER) | payer OTHER, SELFPAY ==
--- NOTE | ~2022-07-31 | US_ITS ---
EXAMINATION: US OBSTETRICAL ULTRASOUND CLINICAL INFORMATION: 5 weeks with abdominal pain, vaginal bleeding Transabdominal transvaginal study. 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 Findings; This exam is demonstrating a cystic area within the endometrial canal which likely represents a gestational sac. 7 x 4 x 7 mm. This would correspond to a 5 week 1 day . There is no evidence of yolk sac. There is no pole seen. Therefore no heart rate is recorded. Right ovary is measuring 3.8 x 1.8 x 2.2 cm. Thick-walled cyst is associated measuring 2.2 x 2.2 x 2.1 cm. Wall is not hypervascular. This may well represent a corpus luteum given the findings within the uterine canal. Left ovary is measuring 2.8 x 1.7 x 1.9 cm. Normal-appearing. There is trace free fluid in the cul-de-sac. US/US OB pelvic and transvaginal IMPRESSION: I believe this exam demonstrates an intrauterine gestational sac. 5 weeks 1 day by ultrasound criteria. No pole or yolk sac is seen at this time. No suspicious fluid collection in the region. Trace free fluid in the cul-de-sac. Thick-walled cyst associated with the right ovary may well represent corpus luteum.
[2022-07-31 07:06] VITALS: BP 138/74; PULSE 96; RESP 16; TEMP 36.5; O2SAT 100; BMI 29.7
--- NOTE | 2022-07-31 07:10 | PC.NURSE ---
Patient c/o vaginal bleeding since last night with lower abd pain that radiates around to back. Concerned about UTI as well due to urgency.
[2022-07-31 07:42] LABS: UPreg QC Valid YES; Urine Pregnancy POSITIVE (NEGATIVE)
--- NOTE | 2022-07-31 07:44 | ED.GENADULT ---
HPI - General Adult General Chief complaint: Abdominal Pain Stated complaint: lower ab pain, blood in urine, 5 wks preg Time Seen by Provider: 07/31/22 07:29 Source: patient Mode of arrival: ambulatory Limitations: no limitations History of Present Illness HPI narrative: 27-year-old female about 5 weeks present with bilateral lower pelvic pain and vaginal bleeding. No trauma or injury to the abdomen. Patient did not start the care for this . Blood in the urine, increased urinary frequency. Related Data Home Medications Medication Instructions Recorded Confirmed copper 380 square mm intrauterine intrauterine 06/20/21 12/04/21 device (ParaGard T 380A) Previous Rx's Medication Instructions Recorded albuterol sulfate 90 mcg/actuation 2 puff inhalation Q4-6H PRN 08/30/21 aerosol inhaler (ProAir HFA) shortness of breath or wheezing #6.7 grams fluticasone propionate 44 1 puff inhalation BID 30 days 08/30/21 mcg/actuation HFA aerosol inhaler #10.6 grams (Flovent HFA) nitrofurantoin 100 mg PO Q12H 5 days #10 caps 04/02/22 monohydrate/macrocrystals 100 mg capsule (Macrobid) phenazopyridine 200 mg tablet 200 mg PO TID PRN pain 6 doses #10 04/02/22 (Pyridium) tabs nitrofurantoin 100 mg PO Q12H 5 days #10 caps 04/24/22 monohydrate/macrocrystals 100 mg capsule (Macrobid) oseltamivir 75 mg capsule (Tamiflu) 75 mg PO Q12H 5 days #10 caps 04/24/22 nitrofurantoin 100 mg PO Q12H 7 days #14 caps 07/31/22 monohydrate/macrocrystals 100 mg capsule (Macrobid) Allergies Allergy/AdvReac Type Severity Reaction Status Date / Time No Known Allergies Allergy Verified 07/31/22 07:08 Review of Systems Review of Systems: All other systems are reviewed and are negative Constitutional: Reports as per HPI and Reports no additional constitutional complaints Eyes: Reports as per HPI and Reports no additional eye complaints Reports system reviewed and no additional complaints, except as documented Cardiovascular: Reports as per HPI and Reports no additional cardiovascular complaints Respiratory: Reports as per HPI and Reports no additional respiratory complaints Gastrointestinal: Reports as per HPI and Reports no additional gastrointestinal complaints Genitourinary: Reports no additional female genitourinary complaints Musculoskeletal: Reports no additional musculoskeletal complaints Skin/Breast: Reports system reviewed and no additional complaints, except as docu Psychiatric: Reports no additional psychiatric complaints Endocrine: Reports no additional endocrine complaints Hematologic/Lymphatic: Reports no additional hematologic/lymphatic complaints Allergic/Immunologic: Reports no additional allergic/immunologic complaints Reports system reviewed and no additional complaints, except as documented and Reports Abnormal speech present [facility] Past Medical History Medical History Class 1 obesity with body mass index (BMI) of 31.0 to 31.9 in adult History of asthma Moderate persistent asthma Physical exam Right hip pain Surgical History No pertinent past surgical history Family History Family History Father Diabetes Alzheimer disease Hypercholesteremia Mother Anxiety Depression Diabetes Social History Social History Housing: Apartment Alcohol intake: never Patient Tobacco Use Status: Never used Tobacco e-Cigarette/Vaping Use: Never Used Second Hand Smoke Exposure: No Advance Directives: No Advance Directives Information Provided: No service: No 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 Current occupational exposures/hazards: No Cognitive needs: No Hearing needs: No Vision needs: No Physical Exam ED Vital Signs: Vital Signs - 24 hr 07/31/22 07:06 Temperature 97.7 F Pulse Rate 96 Respiratory Rate 16 Blood Pressure 138/74 Pulse Oximetry 100 Oxygen Delivery Method Room Air BMI result Body Mass Index 29.7 Vital signs have been reviewed as appeared to be correct. Blood pressure normal. Heart rate normal. Respiration rate normal. Temperature normal. Oxygen saturation normal. Appearance: Alert. Oriented X3. No acute distress. Head: Normal external exam. Normocephalic. Atraumatic. No Henao signs noted. No raccoon eyes noted Eyes: PERRLA. EOMI. Conjunctiva and sclera normal. Eyelids normal. ENT: TM's Normal. Pharynx normal. Uvula midline. Moist mucous membranes. No trismus noted. No drooling noted. No muffled voice noted. Neck: Normal inspection. Neck supple. FROM. No adenopathy. Thyroid Normal. No meningeal signs. No neck mass noted. CVS: Normal heart rate and rhythm. Heart sound normal. No murmurs noted. Pulses normal throughout. Respiratory: No respiratory distress. Painless inspiration. Breath sounds normal. No wheezes/rales/rhonchi noted. Chest nontender. No accessory muscle usage noted or decreased air movement noted. Abdomen: Soft and nontender. Bowel sounds normal in all 4 quadrants. No distention noted. No organomegaly noted. No visible injury noted. Pelvic exam: Deferred for ultrasound. Back: No CVA tenderness. Full range of motion noted. Skin: Skin warm and dry. Normal skin color. Normal skin turgor. No rashes/lesions/lacerations noted. Extremities: No lower extremity edema. Extremities exhibit normal range of motion. Extremities nontender. Neuro: Oriented X 3. Cranial nerve exam: II-XII are grossly intact No motor deficit. No sensory deficit. Reflexes normal. 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 Medical Decision Making Differential Diagnosis Differential Diagnoses: The differential diagnosis associated with the presentation includes (Normal early , early complication, UTI, threatening ) Lab Data MDM Lab Attestation statement: I reviewed the patient's lab results. 07/31/22 08:56 07/31/22 08:56 Labs: Lab Results 07/31/22 07/31/22 07/31/22 Range/Units 07:21 07:21 08:56 WBC 9.4 (4.8-10.8) X10*3/uL RBC 4.94 (4.20-5.50) X10*6/uL Hgb 13.7 (12.0-16.0) g/dl Hct 41.6 (37.0-47.0) % MCV 84.2 (80.0-98.0) fL MCH 27.7 (27.0-33.0) pg MCHC 32.9 (31.0-35.0) g/dl RDW 13.5 (11.0-16.0) % Plt Count 281 D (160-400) X10*3/uL MPV 9.7 (9.4-12.3) fL Immature Gran % (Auto) 0.3 (0.0-0.4) % Neut % (Auto) 69.1 (45-73) % Lymph % (Auto) 21.2 (20-40) % [place] % (Auto) 5.1 (2-11) % Eos % (Auto) 3.6 (0-4) % Baso % (Auto) 0.7 (0-2) % Lymph # (Auto) 2.0 (1.2-4.9) X10*3/uL [place] # (Auto) 0.5 (0.1-1.2) X10*3/uL Eos # (Auto) 0.3 (0.0-0.4) X10*3/uL Baso # (Auto) 0.1 (0.0-0.2) X10*3/uL Abs Immat Gran (auto) 0.03 (0.00-0.03) X10*3/uL Absolute Neuts (auto) 6.5 (2.0-8.3) x10*3/uL Absolute Nucleated RBC 0.000 (0.0-0.012) X10*3/uL Nucleated RBC % (auto) 0.0 (0.0-0.2) /100WBC Sodium (135-145) mmol/L Potassium (3.3-5.1) mmol/L Chloride (96-108) mmol/L Carbon Dioxide (22-29) mmol/L Anion Gap (12-20) BUN (9-16) mg/dL Creatinine (0.5-1.4) mg/dL Estim Creat Clear Calc Estimated GFR Random Glucose (60-115) mg/dL Calcium (8.4-10.2) mg/dL Total Bilirubin (0.0-1.0) mg/dL Direct Bilirubin (0.0-0.5) mg/dL AST (5-31) U/L ALT (0-31) U/L Alkaline Phosphatase (39-117) U/L Total Protein (6.5-8.0) g/dL Albumin (3.5-5.0) g/dL Lipase (8-78) U/L Beta HCG, Quant mIU/mL Urine Color Yellow Urine Appearance Cloudy Urine pH 7.0 (5.0-9.0) Ur Specific [place] 1.025 (1.005-1.025) Urine Protein 100 (2+) H (Neg-Trace) mg/dL Urine Glucose (UA) Negative (Negative) mg/dL Urine Ketones Negative (Negative) mg/dL Urine Blood Moderate (2+) H (Negative) Urine Nitrite Negative (Negative) Ur Leukocyte Esterase Large (3+) H (Negative) Urine RBC >20 H (0-2) /HPF Urine WBC >50 H (0-5) /HPF Ur Squamous Epith Cells 6-10 (0-2) /HPF Urine Bacteria None Seen (None Seen) Hyaline Casts 0-2 (0-2) /LPF Urine Test POSITIVE H (NEGATIVE) Blood Type 07/31/22 07/31/22 Range/Units 08:56 08:56 WBC (4.8-10.8) X10*3/uL RBC (4.20-5.50) X10*6/uL Hgb (12.0-16.0) g/dl Hct (37.0-47.0) % MCV (80.0-98.0) fL MCH (27.0-33.0) pg MCHC (31.0-35.0) g/dl RDW (11.0-16.0) % Plt Count (160-400) X10*3/uL MPV (9.4-12.3) fL Immature Gran % (Auto) (0.0-0.4) % Neut % (Auto) (45-73) % Lymph % (Auto) (20-40) % [place] % (Auto) (2-11) % Eos % (Auto) (0-4) % Baso % (Auto) (0-2) % Lymph # (Auto) (1.2-4.9) X10*3/uL [place] # (Auto) (0.1-1.2) X10*3/uL Eos # (Auto) (0.0-0.4) X10*3/uL Baso # (Auto) (0.0-0.2) X10*3/uL Abs Immat Gran (auto) (0.00-0.03) X10*3/uL Absolute Neuts (auto) (2.0-8.3) x10*3/uL Absolute Nucleated RBC (0.0-0.012) X10*3/uL Nucleated RBC % (auto) (0.0-0.2) /100WBC Sodium 139 (135-145) mmol/L Potassium 4.3 (3.3-5.1) mmol/L Chloride 106 (96-108) mmol/L Carbon Dioxide 27 (22-29) mmol/L Anion Gap 10 L (12-20) BUN 15 (9-16) mg/dL Creatinine 0.79 (0.5-1.4) mg/dL Estim Creat Clear Calc 129.8 Estimated GFR > 60 Random Glucose 84 (60-115) mg/dL Calcium 9.7 (8.4-10.2) mg/dL Total Bilirubin 0.9 (0.0-1.0) mg/dL Direct Bilirubin 0.3 (0.0-0.5) mg/dL AST 12 (5-31) U/L ALT 11 (0-31) U/L Alkaline Phosphatase 73 (39-117) U/L Total Protein 6.8 (6.5-8.0) g/dL Albumin 4.0 (3.5-5.0) g/dL Lipase 32 (8-78) U/L Beta HCG, Quant 5056 mIU/mL Urine Color Urine Appearance Urine pH (5.0-9.0) Ur Specific [place] (1.005-1.025) Urine Protein (Neg-Trace) mg/dL Urine Glucose (UA) (Negative) mg/dL Urine Ketones (Negative) mg/dL Urine Blood (Negative) Urine Nitrite (Negative) Ur Leukocyte Esterase (Negative) Urine RBC (0-2) /HPF Urine WBC (0-5) /HPF Ur Squamous Epith Cells (0-2) /HPF Urine Bacteria (None Seen) Hyaline Casts (0-2) /LPF Urine Test (NEGATIVE) Blood Type B Positive Discharge Plan Discharge Clinical Impression: Urinary tract infection, , threatened Patient Disposition: Home, Self-Care Instructions: Threatened Miscarriage (ED), Urinary Tract Infection in (ED) Prescriptions: New nitrofurantoin monohyd/m-cryst [Macrobid] 100 mg capsule 100 mg PO Q12H 7 Days Qty: 14 0RF Rx Instructions: must administer with a meal/food No Action nitrofurantoin monohyd/m-cryst [Macrobid] 100 mg capsule 100 mg PO Q12H 5 Days Qty: 10 0RF Rx Instructions: must administer with a meal/food phenazopyridine [Pyridium] 200 mg tablet 200 mg PO TID PRN (Reason: pain) Qty: 10 0RF oseltamivir [Tamiflu] 75 mg capsule 75 mg PO Q12H 5 Days Qty: 10 0RF nitrofurantoin monohyd/m-cryst [Macrobid] 100 mg capsule 100 mg PO Q12H 5 Days Qty: 10 0RF Rx Instructions: must administer with a meal/food albuterol sulfate [ProAir HFA] 90 mcg/actuation HFA aerosol inhaler 2 puff inhalation Q4-6H PRN (Reason: shortness of breath or wheezing) Qty: 6.7 0RF Flovent HFA 44 mcg/actuation HFA aerosol inhaler 1 puff inhalation BID 30 Days Qty: 10.6 6RF Rx Instructions: administer with spacer ParaGard T 380A 380 square mm intrauterine device intrauterine Referrals: Jacque Hunter MD [Primary Care Provider] - Stand Alone Forms: Work/School Release
[2022-07-31 07:47] LABS: Appearance Urine Cloudy; Color Urine Yellow; Glucose Urine UA Negative (Negative); Leukocyte Esterase Urine Large (3+) (Negative); Nitrite Urine Negative (Negative); Specific Gravity - Urine 1.025 (1.005-1.025); UMIC TRIGGER UACC YES; Urine Blood Moderate (2+) (Negative); Urine Ketones Negative (Negative); Urine Protein 100 (2+) mg/dL (Neg-Trace)
[2022-07-31 07:52] LABS: Bacteria Urine None Seen (None Seen); Hyaline Casts Urine 0-2 /LPF (0-2); RBC Urine >20 /HPF (0-2); UACC Culture Trigger YES; WBC Urine >50 /HPF (0-5)
[2022-07-31 09:06] LABS: MANUAL DIFF FLAG NO
[2022-07-31 09:09] LABS: Basophils Absolute Auto 0.1 X10*3/uL (0.0-0.2); Basophils Percent Auto 0.7 % (0-2); Eosinophils Absolute Auto 0.3 X10*3/uL (0.0-0.4); Eosinophils Percent Auto 3.6 % (0-4); Hematocrit 41.6 % (37.0-47.0); Hemoglobin 13.7 g/dl (12.0-16.0); Imm Gran Abs Auto 0.03 X10*3/uL (0.00-0.03); Imm Gran Pct Auto 0.3 % (0.0-0.4); Lymphocytes Percent Auto 21.2 % (20-40); Mean Corpuscular HGB Conc 32.9 g/dl (31.0-35.0); Mean Corpuscular Hemoglobin 27.7 pg (27.0-33.0); Mean Corpuscular Volume 84.2 fL (80.0-98.0); Mean Platelet Volume 9.7 fL (9.4-12.3); Monocytes Absolute Auto 0.5 X10*3/uL (0.1-1.2); Monocytes Percent Auto 5.1 % (2-11); Neutrophils Absolute Auto 6.5 x10*3/uL (2.0-8.3); Neutrophils Percent Auto 69.1 % (45-73); Platelet Count 281 X10*3/uL (160-400); Red Blood Count 4.94 X10*6/uL (4.20-5.50); Red Cell Distribution Width 13.5 % (11.0-16.0); White Blood Count 9.4 X10*3/uL (4.8-10.8)
[2022-07-31 09:30] LABS: Sodium 139 mmol/L (135-145)
[2022-07-31 09:31] LABS: Alanine Aminotransferase 11 U/L (0-31); Alkaline Phosphatase 73 U/L (39-117); Anion Gap 10 (12-20); Aspartate Amino Transferase 12 U/L (5-31); Bilirubin Direct 0.3 mg/dL (0.0-0.5); Bilirubin Total 0.9 mg/dL (0.0-1.0); Blood Urea Nitrogen 15 mg/dL (9-16); Calcium 9.7 mg/dL (8.4-10.2); Carbon Dioxide 27 mmol/L (22-29); Chloride 106 mmol/L (96-108); Creatinine Clr Calc Pharmacy 129.8; Estimated Glomerular Filt Rate > 60; Glucose Random 84 mg/dL (60-115); HCG Quantitative 5056 mIU/mL; Lipase 32 U/L (8-78); Potassium 4.3 mmol/L (3.3-5.1); Total Protein 6.8 g/dL (6.5-8.0)
== END 2022-07-31 10:04 | disposition home or self-care (01) ==
PROVIDERS: Emergency Provider Emergency Medicine; PCP Internal Medicine
DX: O20.0 Threatened abortion (principal); O20.9 Hemorrhage in early pregnancy, unspecified; O23.41 Unspecified infection of urinary tract in pregnancy, first trimester; N39.0 Urinary tract infection, site not specified; Z3A.01 Less than 8 weeks gestation of pregnancy
CPT/HCPCS: 36415; 76801; 76817; 80048; 80076; 81001; 81025; 83690; 84702; 85025; 86900; 86901; 87086; 99282; 99284

== ENCOUNTER 2023-09-09 15:34 | Outpatient (AMB) | payer OTHER, SELFPAY ==
[2023-09-09 15:56] VITALS: BP 126/70; BMI 29.7
--- NOTE | 2023-09-09 15:56 | A.OFFPC_ITS ---
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 Accompanied by: Self / Same As Patient Allergies No Known Allergies Allergy (Verified 09/09/23 16:23) Medication List - Last Reconciled 09/09/23 by Jacque Staton MD fluticasone propionate 44 mcg/actuation 1 puff inhalation BID 30 days Tobacco use date assessed: 09/09/23 Dental Screening Dental Screen Date: 09/09/23 Did you have a dental visit in the last 12 months?: Yes Did you have a dental problem in the last 6 months where you did not have access to dental care?: No Was dental information given to patient?: Patient has dentist HPI HPI Comments History of Present Illness Details This is a 28-year-old female that comes for her physical exam. Last Pap smear was 2021. No chest pain or shortness of breath. [facility] Medical History Moderate persistent asthma Right hip pain Class 1 obesity with body mass index (BMI) of 31.0 to 31.9 in adult Physical exam History of asthma Surgical History No pertinent past surgical history Family History Father Diabetes Alzheimer disease Hypercholesteremia Mother Anxiety Depression Diabetes Social History Housing: Apartment Alcohol intake: never Patient Tobacco Use Status: Never used Tobacco e-Cigarette/Vaping Use: Never Used Second Hand Smoke Exposure: No service: No Current occupational status: employed Current occupational exposures/hazards: No Cognitive needs: No Hearing needs: No Vision needs: Yes Female Reproductive History Menstrual Age of Menarche: 12 Questionnaire PHQ-9 Over the last 2 weeks, how often have you been bothered by any of the following problems? 1. Little interest or pleasure in doing things: not at all 2. Feeling down, depressed, or hopeless: not at all 3. Trouble falling or staying asleep, or sleeping too much: not at all 4. Feeling tired or having little energy: not at all 5. Poor appetite or overeating: not at all 6. Feeling bad about yourself - or that you are a failure or have let yourself or your family down: not at all 7. Trouble concentrating on things, such as reading the newspaper or watching television: not at all 8. Moving or speaking so slowly that other people could have noticed. Or the opposite - being so fidgety or restless that you have been moving around a lot more than usual: not at all 9. Thoughts that you would be better off or of hurting yourself in some way: not at all Total score: 0 Depression Screening Interpretation: Negative Depression Screening Done: Yes 99714 - PHQ-9 Billing: Yes Source: Developed by Drs. Brian Saini, Libertad Esteves, Saul You and colleagues, with an educational hawa from [employer]. Thrive Questionnaire Date Thrive assessed: 09/09/23 I am a: Patient What is your living situation today?: I have a steady place to live Within the past 12 months, did the food you bought not last and you didn't have the money to get more?: Never true Within the past 12 months, did you worry whether your food would run out before you got money to buy more?: Never true Do you have trouble paying for medicines?: No Do you have trouble getting transportation to medical appointments?: No Do you have trouble paying your heating and electricity bill?: No Do you have trouble taking care of your child, family member or friend?: No Do you have trouble with day-to-day activities such as bathing, preparing meals, shopping, managing finances, etc.?: No Are you currently unemployed and looking for a job?: No Are you interested in more education?: No Please select the resources that you would like help with: None Currently or been in a relationship where the following occur: no concerns reported THRIVE Score: 0 AUDIT C Alcohol Use Questionnaire (AUDIT-C) 1. How often do you have a drink containing alcohol?: Never Total Score: 0 Score Reviewed/Action Taken: No LISA-7 AMB Questionnaire LISA-7 Date LISA - 7 assessed: 09/09/23 Feeling nervous, anxious, or on edge: 0 = Not at all Not being able to stop or control worryin = Not at all Worrying too much about different things: 0 = Not at all Trouble relaxin = Not at all Being so restless that it is hard to sit still: 0 = Not at all Becoming easily annoyed or irritable: 0 = Not at all Feeling afraid as if something awful might happen: 0 = Not at all Total LISA-7 score (0-4 normal; 5-9 mild; 10-14 moderate; 15-21 severe): 0 Source: Developed by Drs. Brian Saini, Libertad Esteves, Saul You and colleagues, with an educational hawa from [employer]. LISA-7 Assessment Billing LISA-7 Assessment Tool: LISA-7 Assessment 60750 Review of Systems Const All systems reviewed & are unremarkable except as noted in HPI and below Eyes Reports no additional complaints, Denies change in vision and Denies other visual disturbances Card Denies chest pain at rest, Denies chest pain with activity, Denies edema, Denies irregular heart rhythm, Denies claudication, Denies dyspnea, Denies dyspnea on exertion, Denies orthopnea, Denies paroxysmal nocturnal dyspnea and Denies slow heart rate Resp Denies cough, Denies dyspnea and Denies dyspnea on exertion Physical exam (Primary Care) Vital Signs: Last Vital Signs BP 126/70 09/09/23 15:56 BMI result Body Mass Index 29.7 Tobacco/Smoking Status: Tobacco use Status Tobacco use date assessed 09/09/23 09/09/23 16:01 Patient Tobacco Use Status Never used Tobacco 09/09/23 16:01 e-Cigarette/Vaping Use Never Used 09/09/23 16:01 PHQ-9: PHQ-9 Score PHQ-9: Total score 0 09/09/23 16:01 Depression Screening Interpretation: Negative Thrive Assessment: Date of Thrive Assessment Date Thrive assessed 09/09/23 09/09/23 16:01 Currently or been in a relationship where the following occur: no concerns reported Const Orientation/consciousness: patient oriented x3 HENMT Head: Yes normal to inspection, Yes normocephalic and Yes atraumatic Ears: external ears normal Eyes General: appearance normal, both eyes and all related structures Eyelids: Yes eyelids normal Conjunctivae: conjunctivae normal Neck Neck: Yes normal visual inspection and Yes supple Resp Effort & Inspection: normal respiratory effort Auscultation: clear to auscultation bilaterally Cardio Jugular venous distension: no JVD Rate: regular rate Rhythm: regular rhythm Heart sounds: S1 normal heart sound present and S2 normal heart sound present GI Inspection: Yes normal to inspection Palpation (GI): Soft to palpation and nontender Auscultation: normal bowel sounds Skin General skin exam: no rashes or lesions noted Neuro General: patient oriented x3 and no focal motor deficits Extrem General: Yes full ROM Psych Appearance: grossly normal Assessment and Plan Assessment & Plan (1) Physical exam: Code(s): Z00.00 - Encounter for general adult medical examination without abnormal findings Plan: Repeat in a year. Medications: Refilled fluticasone propionate 44 mcg/actuation administer with spacer 1 puff inhalation BID 30 days 10.6 grams 6RF J45.40 - Moderate persistent asthma, uncomplicated Coding Level of Care Code Est Pt Prev Care 18-39y(60301) Diagnoses Physical exam Z00.00 Additional Codes LISA-7 Assessment Billing - LISA-7 Assessment Tool: LISA-7 Assessment 94298 ([id number]) Time Spent (min) 30
== END 2023-09-09 16:31 | disposition home or self-care (01) ==
PROVIDERS: Visit Provider Internal Medicine
DX: Z00.00 Encounter for general adult medical examination without abnormal findings (principal)
CPT/HCPCS: 99395

== ENCOUNTER 2023-11-06 09:03 | Outpatient (AMB) | payer OTHER, SELFPAY ==
[2023-11-06 09:05] VITALS: BP 130/90; BMI 30.9
--- NOTE | 2023-11-06 09:05 | MHC.PC.OV ---
Vital Signs 11/06/23 09:05 Height 5 ft 9 in Weight 209 lb BMI 30.9 BP 130/90 H Blood Pressure Location Lt brachial Position Sitting Intake Visit Reasons: chest pain/high BP/anxiety [employer] Supervisor Required: No Accompanied by: Self / Same As Patient Allergies No Known Allergies Allergy (Verified 11/06/23 09:22) Medication List - Last Reconciled 11/06/23 by Jacque Staton MD bupropion HCl XL 150 mg PO QAM 90 days fluticasone furoate-vilanterol 100-25 mcg/dose 1 inh inhalation DAILY 30 days hydroxyzine HCl mg PO valacyclovir 1,000 mg PO DAILY Tobacco use date assessed: 09/09/23 Dental Screening Dental Screen Date: 09/09/23 HPI HPI Comments History of Present Illness Details This is a 28-year-old female with mild major depression, anxiety, moderate persistent asthma and HSV that comes today complaining of more depression with anxiety. She went to [facility] ER 10/26/2023 due to chest pain and shortness of breath. Had EKG and chest x-ray which was normal. Also had labs including CBC, CMP, troponins, magnesium and lipase that were all within normal limits. She has been having this chest pain associated with anxiety for over a month. I will start her on bupropion. She was prescribed hydroxyzine as needed for anxiety but makes her sleepy so she take it at bedtime when needed. Asthma well controlled with long-acting inhaler. Was diagnosed with HSV and takes valacyclovir daily. Has not had a breakout. Blood pressure mildly elevated today and will be recheck in 3 weeks by nurse navigator. [facility] Medical History (Updated 11/06/23 @ 09:41 by Jacque Staton MD) Moderate persistent asthma Right hip pain Class 1 obesity with body mass index (BMI) of 31.0 to 31.9 in adult Physical exam History of asthma Surgical History No pertinent past surgical history Family History Father Diabetes Alzheimer disease Hypercholesteremia Mother Anxiety Depression Diabetes Social History Housing: Apartment Alcohol intake: never Patient Tobacco Use Status: Never used Tobacco e-Cigarette/Vaping Use: Never Used Second Hand Smoke Exposure: No service: No Current occupational status: employed Current occupational exposures/hazards: No Cognitive needs: No Hearing needs: No Vision needs: Yes Female Reproductive History Menstrual Age of Menarche: 12 Questionnaire PHQ-9 Over the last 2 weeks, how often have you been bothered by any of the following problems? 1. Little interest or pleasure in doing things: not at all 2. Feeling down, depressed, or hopeless: several days 3. Trouble falling or staying asleep, or sleeping too much: not at all 4. Feeling tired or having little energy: more than half the days 5. Poor appetite or overeating: nearly every day 6. Feeling bad about yourself - or that you are a failure or have let yourself or your family down: not at all 7. Trouble concentrating on things, such as reading the newspaper or watching television: not at all 8. Moving or speaking so slowly that other people could have noticed. Or the opposite - being so fidgety or restless that you have been moving around a lot more than usual: more than half the days 9. Thoughts that you would be better off or of hurting yourself in some way: not at all Total score: 8 Depression Screening Interpretation: Positive Depression Screening Follow-up: Existing condition, New Medication prescribed and Follow-up Visit Requested Depression Screening Done: Yes 76588 - PHQ-9 Billing: Yes Source: Developed by Drs. Brian Saini, Libertad Esteves, Saul You and colleagues, with an educational hawa from [employer]. Thrive Questionnaire Date Thrive assessed: 09/09/23 LISA-7 AMB Questionnaire LISA-7 Date LISA - 7 assessed: 11/06/23 Feeling nervous, anxious, or on edge: 3 = Nearly every day Not being able to stop or control worryin = Several days Worrying too much about different things: 3 = Nearly every day Trouble relaxin = Several days Being so restless that it is hard to sit still: 1 = Several days Becoming easily annoyed or irritable: 0 = Not at all Feeling afraid as if something awful might happen: 1 = Several days Total LISA-7 score (0-4 normal; 5-9 mild; 10-14 moderate; 15-21 severe): 10 Source: Developed by Drs. Brian Saini, Libertad Esteves, Saul You and colleagues, with an educational hawa from [employer]. LISA-7 Assessment Billing LISA-7 Assessment Tool: LISA-7 Assessment 88719 Review of Systems Const All systems reviewed & are unremarkable except as noted in HPI and below Card Denies chest pain at rest, Denies chest pain with activity, Denies edema, Denies irregular heart rhythm, Denies claudication, Denies dyspnea, Denies dyspnea on exertion, Denies orthopnea, Denies paroxysmal nocturnal dyspnea and Denies slow heart rate Resp Denies cough, Denies dyspnea and Denies dyspnea on exertion Physical exam (Primary Care) Vital Signs: Last Vital Signs BP 130/90 H 11/06/23 09:05 Care Plan Goal for BP management: Recheck blood pressure with nurse navigator in 3 weeks BMI result Body Mass Index 30.9 BMI Assessment/Plan discussion: High BMI High, discussed plan: lifestyle, weight reduction, dietary and physical activity Tobacco/Smoking Status: Tobacco use Status Tobacco use date assessed 09/09/23 11/06/23 09:05 Patient Tobacco Use Status Never used Tobacco 11/06/23 09:05 e-Cigarette/Vaping Use Never Used 11/06/23 09:05 PHQ-9: PHQ-9 Score PHQ-9: Total score 8 11/06/23 09:14 Depression Screening Interpretation: Positive Depression Screening Follow-up: Existing condition, New Medication prescribed and Follow-up Visit Requested Thrive Assessment: Date of Thrive Assessment Date Thrive assessed 09/09/23 11/06/23 09:05 Resp Effort & Inspection: normal respiratory effort Auscultation: clear to auscultation bilaterally Cardio Jugular venous distension: no JVD Rate: regular rate Rhythm: regular rhythm Heart sounds: S1 normal heart sound present and S2 normal heart sound present Extrem General: Yes full ROM Assessment and Plan Assessment & Plan (1) Mild major depression: Code(s): F32.0 - Major depressive disorder, single episode, mild Plan: Start bupropion. Patient declines counseling. (2) LISA (generalized anxiety disorder): Code(s): F41.1 - Generalized anxiety disorder Plan: Continue hydroxyzine as needed. (3) HSV (herpes simplex virus) anogenital infection: Code(s): A60.9 - Anogenital herpesviral infection, unspecified Plan: Continue valacyclovir for prophylaxis daily. (4) Moderate persistent asthma: Code(s): J45.40 - Moderate persistent asthma, uncomplicated Qualifiers: Asthma complication type: uncomplicated Qualified Code(s): J45.40 - Moderate persistent asthma, uncomplicated Plan: Continue long-acting inhaler. Medications: New bupropion HCl XL 150 mg PO QAM 90 days 90 tabs 1RF F32.0 - Major depressive disorder, single episode, mild Coding Level of Care Code Est Pt Level 4 (15730) Complex EM visit Add On G2211 Diagnoses Mild major depression F32.0 LISA (generalized anxiety disorder) F41.1 HSV (herpes simplex virus) anogenital infection A60.9 Moderate persistent asthma without complication J45.40 Asthma complication type: uncomplicated Additional Codes LISA-7 Assessment Billing - LISA-7 Assessment Tool: LISA-7 Assessment 42564 ([id number]) Time Spent (min) 21
== END 2023-11-06 09:33 | disposition home or self-care (01) ==
PROVIDERS: PCP Internal Medicine; Visit Provider Internal Medicine
DX: J45.40 Moderate persistent asthma, uncomplicated (principal); F32.0 Major depressive disorder, single episode, mild; F41.1 Generalized anxiety disorder; A60.9 Anogenital herpesviral infection, unspecified
CPT/HCPCS: 96127; 99214; G2211

== ENCOUNTER 2023-12-22 16:16 | Outpatient (AMB) | payer OTHER, SELFPAY ==
--- NOTE | 2023-12-22 16:20 | MHC.PC.OV ---
Vital Signs 12/22/23 16:21 Height 5 ft 9 in Weight 195 lb BMI 28.8 BP 138/90 H Blood Pressure Location Lt brachial Position Sitting Intake Visit Reasons: [facility] Clinical Rehabilitation Liaison Required: No Accompanied by: Self / Same As Patient Allergies No Known Allergies Allergy (Verified 12/22/23 16:36) Medication List - Last Reconciled 12/22/23 by Jacque Staton MD bupropion HCl XL 150 mg PO QAM 90 days fluticasone furoate-vilanterol 100-25 mcg/dose 1 inh inhalation DAILY 30 days hydroxyzine HCl mg PO valacyclovir 1,000 mg PO DAILY Tobacco use date assessed: 09/09/23 Dental Screening Dental Screen Date: 09/09/23 HPI HPI Comments History of Present Illness Details This is a 28-year-old female with hypertension and mild major depression that complains of tachycardia that happens occasionally. She went to ER due to this matter. She wants to see Cardiology. She also had an episode in which her left side was weak associated with the slow speech and jaw heaviness. CT scan of the head was negative for stroke. MRI will be order and she will be referred to Neurology. She does complains of headaches and I will start her on sumatriptan as needed. Blood pressure has been borderline elevated and I will start her on hydrochlorothiazide and blood pressure will be recheck in 3 weeks by nurse navigator. Depression has been well controlled with bupropion. ON LICENSE OF [facility] Medical History (Updated 12/22/23 @ 16:46 by Jacque Staton MD) Moderate persistent asthma Right hip pain Class 1 obesity with body mass index (BMI) of 31.0 to 31.9 in adult Physical exam History of asthma Surgical History No pertinent past surgical history Family History Father Diabetes Alzheimer disease Hypercholesteremia Mother Anxiety Depression Diabetes Social History Housing: Apartment Alcohol intake: never Patient Tobacco Use Status: Never used Tobacco e-Cigarette/Vaping Use: Never Used Second Hand Smoke Exposure: No service: No Current occupational status: employed Current occupational exposures/hazards: No Cognitive needs: No Hearing needs: No Vision needs: Yes Female Reproductive History Menstrual Age of Menarche: 12 Questionnaire Thrive Questionnaire Date Thrive assessed: 09/09/23 LISA-7 AMB Questionnaire LISA-7 Date LISA - 7 assessed: 11/06/23 Source: Developed by Drs. Brian Saini, Libertad Esteves, Saul You and colleagues, with an educational hawa from [employer]. Review of Systems Const All systems reviewed & are unremarkable except as noted in HPI and below Reports headache(s) and Reports weakness ENT Reports headache(s) Card Denies chest pain at rest, Denies chest pain with activity, Reports rapid heart rate, Denies edema, Denies irregular heart rhythm, Denies claudication, Denies dyspnea, Denies dyspnea on exertion, Denies orthopnea, Denies paroxysmal nocturnal dyspnea and Denies slow heart rate Resp Denies cough, Denies dyspnea and Denies dyspnea on exertion GI Denies abdominal pain, Denies change in bowel habits, Denies excessive flatus, Denies nausea and Denies vomiting Denies urinary incontinence, Denies urinary hesitancy and Denies urinary urgency Musc Denies abnormal gait, Denies atrophy, Denies deformity and Denies limited range of motion Skin/Breast Denies bleeding lesions, Denies changing lesions and Denies rash Neuro Reports Abnormal speech present, Denies abnormal gait, Reports confusion, Reports headache(s), Denies lack of coordination, Reports memory loss and Reports weakness Psych Reports confusion and Reports memory loss Physical exam (Primary Care) Vital Signs: Last Vital Signs BP 138/90 H 12/22/23 16:21 BMI result Body Mass Index 28.8 Tobacco/Smoking Status: Tobacco use Status Tobacco use date assessed 09/09/23 12/22/23 16:25 Patient Tobacco Use Status Never used Tobacco 12/22/23 16:25 e-Cigarette/Vaping Use Never Used 12/22/23 16:25 Thrive Assessment: Date of Thrive Assessment Date Thrive assessed 09/09/23 12/22/23 16:25 Const General: confusion Orientation/consciousness: confusion Resp Effort & Inspection: normal respiratory effort Auscultation: clear to auscultation bilaterally Cardio Jugular venous distension: no JVD Rate: regular rate Rhythm: regular rhythm Heart sounds: S1 normal heart sound present and S2 normal heart sound present Neuro General: confusion Speech: Abnormal speech present Extrem General: Yes full ROM Assessment and Plan Assessment & Plan (1) Essential hypertension: Code(s): I10 - Essential (primary) hypertension Plan: Start hydrochlorothiazide. Blood pressure goal is equal or less than 130/80. (2) Mild major depression: Code(s): F32.0 - Major depressive disorder, single episode, mild Plan: Continue bupropion. (3) Confusion: Code(s): R41.0 - Disorientation, unspecified Plan: MRI of the head ordered. Referred to neurology. (4) Tachycardia: Code(s): R00.0 - Tachycardia, unspecified Plan: Referred to cardiology. Orders: Orders MR head/brain wo con Today R47.81 - Slurred speech Referrals Neurology Referral R41.0 - Disorientation, unspecified, R47.81 - Slurred speech Cardiology Referral R00.0 - Tachycardia, unspecified Medications: New sumatriptan succinate do not exceed 8 doses per 24 hrs 25 mg PO Q2-4H PRN 9 tabs 0RF migraine headache 30 days hydrochlorothiazide 12.5 mg PO DAILY 90 tabs 0RF 90 days I10 - Essential (primary) hypertension blood pressure test kit-large As directed 1 ea 0RF I10 - Essential (primary) hypertension Coding Level of Care Code Est Pt Level 4 (23630) Complex EM visit Add On G2211 Diagnoses Essential hypertension I10 Mild major depression F32.0 Confusion R41.0 Tachycardia R00.0 Time Spent (min) 23
[2023-12-22 16:21] VITALS: BP 138/90; BMI 28.8
== END 2023-12-22 16:48 | disposition home or self-care (01) ==
PROVIDERS: PCP Internal Medicine; Visit Provider Internal Medicine
DX: I10 Essential (primary) hypertension (principal); F32.0 Major depressive disorder, single episode, mild; R41.0 Disorientation, unspecified; R00.0 Tachycardia, unspecified
CPT/HCPCS: 99214; G2211

== ENCOUNTER 2023-12-24 19:10 | Emergency (ER) | payer OTHER, SELFPAY ==
--- NOTE | ~2023-12-24 | CT_ITS ---
EXAMINATION: CT HEAD WITHOUT CONTRAST CLINICAL INFORMATION: Headache COMPARISON: None available. TECHNIQUE: Contiguous axial imaging was performed from the skull base to vertex without intravenous administration of contrast. This CT examination was performed using dose optimization techniques as appropriate, variously including the following: *Automated exposure control *Adjustment of mA and/or kV according to patient size (this includes techniques or standardized protocols for targeted exams where dose is matched to indication/reason for exam; i.e. extremities or head) *Use of iterative reconstruction technique DLP: 652 mGy-cm FINDINGS: There is no acute intra-axial, extra-axial bleed, masses or midline shift. There is no acute infarction evolution. The gonzalez to white matter differentiation maintained normal. The lateral ventricles are symmetrical in size and configuration without enlargement. Bone windows reveal no calvarial abnormality. There is no scalp soft tissue abnormality. Bilateral paranasal sinuses and mastoid air cells are well-aerated. CT/CT head/brain wo IV con IMPRESSION: No acute intracranial process seen.
[2023-12-24 19:44] VITALS: BP 144/89; PULSE 74; RESP 20; TEMP 36.6; O2SAT 100; BMI 28.8
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
[2023-12-24 21:04] LABS: Basophils Absolute Auto 0.1 X10*3/uL (0.0-0.2); Basophils Percent Auto 0.7 % (0-2); Eosinophils Absolute Auto 0.5 X10*3/uL (0.0-0.4); Eosinophils Percent Auto 3.9 % (0-4); Hematocrit 45.5 % (37.0-47.0); Hemoglobin 15.6 g/dl (12.0-16.0); Imm Gran Abs Auto 0.03 X10*3/uL (0.00-0.03); Imm Gran Pct Auto 0.3 % (0.0-0.4); Lymphocytes Absolute Auto 3.5 X10*3/uL (1.2-4.9); Lymphocytes Percent Auto 30.2 % (20-40); MANUAL DIFF FLAG SCAN; Mean Corpuscular HGB Conc 34.3 g/dl (31.0-35.0); Mean Corpuscular Hemoglobin 29.2 pg (27.0-33.0); Mean Corpuscular Volume 85.2 fL (80.0-98.0); Mean Platelet Volume 10.8 fL (9.4-12.3); Monocytes Absolute Auto 0.5 X10*3/uL (0.1-1.2); Monocytes Percent Auto 4.7 % (2-11); Neutrophils Absolute Auto 6.9 x10*3/uL (2.0-8.3); Neutrophils Percent Auto 60.2 % (45-73); PLT CLUMP 1; Red Blood Count 5.34 X10*6/uL (4.20-5.50); SCAN SMEAR FLAG 1
[2023-12-24 21:17] LABS: Alanine Aminotransferase 16 U/L (0-31); Albumin Level 4.5 g/dL (3.5-5.0); Alkaline Phosphatase 95 U/L (39-117); Anion Gap 12 (12-20); Aspartate Amino Transferase 15 U/L (5-31); Bilirubin Total 0.4 mg/dL (0.0-1.0); Blood Urea Nitrogen 13 mg/dL (9-16); C Reactive Protein 0.92 mg/dL (< or = 0.50); Calcium 9.9 mg/dL (8.4-10.2); Carbon Dioxide 29 mmol/L (22-29); Chloride 103 mmol/L (96-108); Creatinine Clr Calc Pharmacy 116.5; Estimated Glomerular Filt Rate > 60; Glucose Random 96 mg/dL (60-115); Magnesium 1.9 mg/dL (1.6-2.6); Potassium 3.8 mmol/L (3.3-5.1); Sodium 140 mmol/L (135-145); Total Protein 8.6 g/dL (6.5-8.0)
[2023-12-24 21:36] LABS: Platelet Count 241 X10*3/uL (160-400); SLIDE REVIEW VERIFIED; White Blood Count 11.4 X10*3/uL (4.8-10.8)
[2023-12-24 21:47] LABS: Erythrocyte Sedimentation Rate 7 MM/HR (0-20)
[2023-12-24 21:55] LABS: HCG Quantitative < 2 mIU/mL
[2023-12-24] MEDS: Ketorolac Tromethamine 30 MG/ML VIAL IM (22:33)
--- NOTE | 2023-12-24 22:43 | PC.NURSE ---
pt is axox4 speaking full clear sentences. neuros intact. pt medicated per mar for pain awaiting reassessment for d/c.
[2023-12-24 22:57] VITALS: BP 130/86; PULSE 82; RESP 16; TEMP 36.8; O2SAT 97
== END 2023-12-24 22:58 | disposition home or self-care (01) ==
PROVIDERS: Physician Assistant; Emergency Provider Emergency Medicine; PCP Internal Medicine
DX: R20.2 Paresthesia of skin (principal); R51.9 Headache, unspecified; Z79.899 Other long term (current) drug therapy
CPT/HCPCS: 36415; 70450; 80053; 83735; 84443; 84702; 85025; 85652; 86140; 96372; 99284; J1885

== ENCOUNTER 2024-01-09 19:44 | Outpatient (REF) | payer OTHER, SELFPAY ==
--- NOTE | ~2024-01-09 | MR_ITS ---
EXAMINATION: MR BRAIN WITHOUT CONTRAST CLINICAL INFORMATION: Slurred speech. COMPARISON: CT scan of the head 12/24/2023. TECHNIQUE: MRI of the brain was obtained using routine sequences without contrast. FINDINGS: No diffusion abnormalities are identified to suggest an acute or subacute infarct. No mass effect or midline shift is seen. The ventricles and sulci are normal in size. Brain parenchymal signal is unremarkable. No extra-axial fluid collections are seen. The brainstem appears normal. No pathologic magnetic artifact is seen on the gradient or susceptibility acquisitions. The cerebellar tonsils have normal contour and position, and the craniocervical junction appears normal. Marrow signal and midline structures are normal. The major intracranial flow-voids at the level of the [place] are preserved. The dural venous sinus flow-voids are maintained. The palatine tonsils are moderately prominent with homogenous signal bilaterally. The mastoid air cells are well-aerated. There is minimal mucoperiosteal thickening in the inferior left maxillary and anterior left ethmoid sinuses. MR/MR head/brain wo con IMPRESSION: There are no acute bleeds or infarcts. No masses are demonstrated. Brain parenchymal signal is unremarkable. Electronically signed by: Brown Teague MD 01/10/2024 12:00 PM EDT
== END 2024-01-09 19:45 | disposition home or self-care (01) ==
LOC: HO.MRI 19:44
PROVIDERS: PCP Internal Medicine; Visit Provider Internal Medicine
DX: R47.81 Slurred speech (principal)
CPT/HCPCS: 70551

== ENCOUNTER 2024-01-19 23:50 | Emergency (ER) | payer OTHER, SELFPAY ==
[2024-01-19 23:56] VITALS: BP 113/63; PULSE 74; RESP 16; TEMP 35.8; O2SAT 98; BMI 29.5
[2024-01-20 02:14] LABS: Appearance Urine Cloudy; Color Urine Yellow; Glucose Urine UA Negative (Negative); Leukocyte Esterase Urine Large (3+) (Negative); Nitrite Urine Negative (Negative); Specific Gravity - Urine 1.015 (1.005-1.025); UMIC TRIGGER UACC YES; Urine Blood Large (3+) (Negative); Urine Ketones Negative (Negative); Urine Protein Trace mg/dL (Neg-Trace)
[2024-01-20 02:19] LABS: Bacteria Urine Trace (None Seen); Hyaline Casts Urine 0-2 /LPF (0-2); RBC Urine >20 /HPF (0-2); UACC Culture Trigger YES; WBC Urine >50 /HPF (0-5)
--- NOTE | 2024-01-20 05:01 | ED_ITS ---
HPI - Female Genitourinary General Chief complaint: Urogenital-Female Stated complaint: UTI Time Seen by Provider: 01/20/24 04:45 Source: patient Mode of arrival: ambulatory Limitations: no limitations History of Present Illness ED Provider: dillon [facility] Narrative: Patient's dysuria frequency low back pain since yesterday no nausea no vomiting no fever no chills no vaginal discharge no history of frequent UTI Related Data Home Medications ?Medication ?Instructions ?Recorded ?Confirmed hydroxyzine HCl 25 mg tablet mg PO 11/06/23 12/22/23 valacyclovir 1 gram tablet 1,000 mg PO DAILY 11/06/23 12/22/23 Previous Rx's ?Medication ?Instructions ?Recorded bupropion HCl 150 mg 24 hr tablet, 150 mg PO QAM 90 days #90 tabs 11/06/23 extended release fluticasone furoate 100 1 inh inhalation DAILY 30 days #60 11/28/23 mcg-vilanterol 25 mcg/dose ea inhalation powder blood pressure test kit-large #1 ea 12/22/23 hydrochlorothiazide 12.5 mg tablet 12.5 mg PO DAILY 90 days #90 tabs 12/22/23 sumatriptan succinate 25 mg tablet 25 mg PO Q2-4H PRN migraine 12/28/23 headache 30 days #9 tabs cefuroxime axetil 250 mg tablet 250 mg PO BID 7 days #14 tabs 01/20/24 phenazopyridine 200 mg tablet 200 mg PO TID 2 days #6 tabs 01/20/24 (Pyridium) Allergies Allergy/AdvReac Type Severity Reaction Status Date / Time No Known Allergies Allergy Verified 01/19/24 23:57 Review of Systems Review of Systems: Yes all other systems are reviewed and are negative PMFSH Past Medical History Medical History Moderate persistent asthma Right hip pain Class 1 obesity with body mass index (BMI) of 31.0 to 31.9 in adult Physical exam History of asthma Surgical History No pertinent past surgical history Family History Family History Father Diabetes Alzheimer disease Hypercholesteremia Mother Anxiety Depression Diabetes Social History Social History Housing: Apartment Alcohol intake: never Patient Tobacco Use Status: Never used Tobacco e-Cigarette/Vaping Use: Never Used Second Hand Smoke Exposure: No Advance Directives: No Advance Directives Information Provided: No Do you have a plan to hurt others: No Plan service: No Current occupational status: employed Current occupational exposures/hazards: No Cognitive needs: No Hearing needs: No Vision needs: Yes Physical Exam Vital Signs: Vital Signs: Last Vital Signs Temp 98.3 F 01/20/24 05:15 Pulse 70 01/20/24 05:15 Resp 16 01/20/24 05:15 BP 106/60 01/20/24 05:15 Pulse Ox 97 01/20/24 05:15 O2 Del Method Room Air 01/20/24 05:15 BMI result Body Mass Index 29.5 Appearance: Alert. Oriented X3. No acute distress. ENT: Pharynx normal. Oral Mucosa moist Neck: Normal inspection. Neck supple. CVS: Normal heart rate and rhythm. Pulses normal. Respiratory: No respiratory distress. Equal air entry bilateral, Abdomen: Soft and nontender. Bowel sounds are present, no mass palpable, no CVA tenderness Skin: Skin warm and dry. Normal skin color. Normal skin turgor. Medications Administered Discontinued Medications Generic Name Dose Route Start Last Admin Trade Name Freq PRN Reason Stop Dose Admin Cefuroxime Axetil 250 mg 01/20/24 05:01 01/20/24 05:12 Cefuroxime Axetil 250 Mg Tablet PO 01/20/24 05:02 250 mg ONCE ONE Administration Medical Decision Making Medical Decision Making [facility] Narrative: Patient with uncomplicated UTI prescribe cefuroxime and Pyridium Lab Data [facility] Lab Attestation statement: I reviewed the patient's lab results. Labs: Lab Results 01/20/24 Range/Units 02:05 Urine Color Yellow Urine Appearance Cloudy Urine pH 6.0 (5.0-9.0) Ur Specific [place] 1.015 (1.005-1.025) Urine Protein Trace (Neg-Trace) mg/dL Urine Glucose (UA) Negative (Negative) mg/dL Urine Ketones Negative (Negative) mg/dL Urine Blood Large (3+) H (Negative) Urine Nitrite Negative (Negative) Ur Leukocyte Esterase Large (3+) H (Negative) Urine RBC >20 H (0-2) /HPF Urine WBC >50 H (0-5) /HPF Ur Squamous Epith Cells 3-5 (0-2) /HPF Urine Bacteria Trace (None Seen) Hyaline Casts 0-2 (0-2) /LPF Discharge Plan Discharge Clinical Impression: Urinary tract infection Patient Disposition: Home, Self-Care Instructions: Urinary Tract Infection in Women (ED) Additional Instructions: Drink plenty of fluids Take antibiotic as prescribed Pyridium for pain as prescribed Follow with PCP as needed Prescriptions: New cefuroxime axetil 250 mg tablet 250 mg PO BID 7 Days Qty: 14 0RF phenazopyridine [Pyridium] 200 mg tablet 200 mg PO TID 2 Days Qty: 6 0RF No Action fluticasone furoate-vilanterol 100-25 mcg/dose blister with device 1 inh inhalation DAILY 30 Days Qty: 60 6RF sumatriptan succinate 25 mg tablet 25 mg PO Q2-4H PRN (Reason: migraine headache) 30 Days Qty: 9 0RF Rx Instructions: do not exceed 8 doses per 24 hrs hydrochlorothiazide 12.5 mg tablet 12.5 mg PO DAILY 90 Days Qty: 90 0RF (DME) blood pressure test kit-large Kit See Rx Instructions .Route Qty: 1 0RF Rx Instructions: As directed hydroxyzine HCl 25 mg tablet PO bupropion HCl 150 mg tablet extended release 24 hr 150 mg PO QAM 90 Days Qty: 90 1RF valacyclovir 1 gram tablet 1,000 mg PO DAILY Stand Alone Forms: Work/School Release Interventions: ED Discharge Assessment Last Done: 01/20/24 05:15 Discharge Date/Time: 01/20/24 05:15 Print Language: Polish
[2024-01-20 05:10] VITALS: BP 106/60; PULSE 70; RESP 16; TEMP 36.8; O2SAT 97
[2024-01-20] MEDS: cefuroxime axetiL 250 MG TABLET PO (05:12)
[2024-01-20 05:15] VITALS: BP 106/60; PULSE 70; RESP 16; TEMP 36.8; O2SAT 97
== END 2024-01-20 05:15 | disposition home or self-care (01) ==
PROVIDERS: Emergency Provider Internal Medicine; PCP Internal Medicine
DX: N39.0 Urinary tract infection, site not specified (principal); R30.0 Dysuria; M54.50 Low back pain, unspecified; J45.40 Moderate persistent asthma, uncomplicated; Z79.899 Other long term (current) drug therapy
CPT/HCPCS: 81001; 87086; 99283

== ENCOUNTER 2024-02-05 13:46 | Outpatient (AMB) | payer OTHER, SELFPAY ==
[2024-02-05 13:48] VITALS: BP 110/60; PULSE 90; BMI 29.8
--- NOTE | 2024-02-05 13:48 | MHC.OFFVIS ---
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 She has had various symptoms including shortness of breath, some chest pains, heart racing others. Symptoms are very vague and nonspecific. They are transient and can happen any time and last for few seconds. Nothing provoking. She may feel suddenly short of breath when she is resting and after a few moments it goes away. At the same time, some chest pains and she can feel her heart racing. It seems that she has been at [facility] ER as well as [facility]. On review of [facility] records, it seems she had jaw discomfort and weakness and thought to be a viral etiology as there was pharyngeal erythema. Evaluated by neuro and thought not to be a stroke. CT scan of the head at that time was unremarkable. CTA of the head and neck showed no significant stenosis. There was suggestion of tonsillitis and bilateral cervical lymph nodes which could be reactive. Hence presentation seems to be possibly viral in nature. Another visit to [facility] where she had chest tightness. Nonischemic EKG and unremarkable troponin and chest x-ray was also okay. It was again felt that symptoms are not concerning for ACS. She was given Tylenol discharge. Otherwise, no known cardiac issues in the past. [facility] Medical History Moderate persistent asthma Right hip pain Class 1 obesity with body mass index (BMI) of 31.0 to 31.9 in adult Physical exam History of asthma Surgical History No pertinent past surgical history Family History Father Diabetes Alzheimer disease Hypercholesteremia Mother Anxiety Depression Diabetes Social History Housing: Apartment Alcohol intake: never Patient Tobacco Use Status: Never used Tobacco e-Cigarette/Vaping Use: Never Used Second Hand Smoke Exposure: No service: No Current occupational status: employed Current occupational exposures/hazards: No Cognitive needs: No Hearing needs: No Vision needs: Yes Female Reproductive History Menstrual Age of Menarche: 12 Review of Systems Const Denies chills, Denies daytime sleepiness, Denies fatigue, Denies fever(s), Denies poor appetite, Denies snoring, Denies stops breathing during sleep, Denies weakness, Denies weight gain and Denies weight loss Eyes Denies loss of vision ENT Denies dizziness and Denies hearing loss Card Denies chest pain, Denies irregular heart rhythm, Denies claudication, Denies leg edema, Denies lightheadedness, Denies palpitations, Denies dyspnea on exertion and Denies orthopnea Resp Denies cough, Denies excessive phlegm production, Denies dyspnea on exertion, Denies snoring and Denies wheezing GI Denies abdominal pain, Denies hematochezia, Denies change in bowel habits, Denies nausea and Denies vomiting Denies urinary frequency and Denies dysuria Musc Denies arthralgias, Denies muscle weakness, Denies numbness and Denies other Skin/Breast Denies nail changes and Denies rash Neuro Denies Abnormal speech present, Denies dizziness, Denies loss of vision, Denies memory loss, Denies numbness and Denies weakness Psych Denies depression and Denies memory loss Endo Denies fatigue and Denies palpitations Jonathan/Lymph Denies easy bruising Aller/Immun Denies wheezing Physical Exam Vital Signs: Last Vital Signs Pulse 90 02/05/24 13:48 BP 110/60 02/05/24 13:48 BMI result Body Mass Index 29.8 Const General: comfortable and no acute distress Orientation/consciousness: patient oriented x3 HEENT Other: Unremarkable Head: Yes normal to inspection Neck Neck: Yes normal visual inspection Chest Chest palpation & inspection: normal inspection of the chest Resp Auscultation: clear to auscultation bilaterally Cardio Palpation: normal PMI Heart sounds: S1 normal heart sound present, S2 normal heart sound present, no gallops, no murmurs and no rubs GI Palpation (GI): Soft to palpation Back/Spine/Pelvis Other: unremarkable Skin General skin exam: no rashes or lesions noted Neuro General: patient oriented x3 Speech: No Abnormal speech present Extrem General: Yes normal to inspection Psych Mental Status: mental status grossly normal Assessment & Plan Assessment & Plan (1) SOB (shortness of breath): Code(s): R06.02 - Shortness of breath Category: Medical (2) Precordial chest pain: Code(s): R07.2 - Precordial pain Category: Medical (3) Heart palpitations: Code(s): R00.2 - Palpitations Category: Medical Plan In the recent EKG, underlying rhythm is sinus at 71/Min; no significant ST-T changes and otherwise unremarkable. Normal DC and corrected QT. Based on review of ER records from [facility] no obvious cardiac etiology for symptoms. Thought to be rather viral in nature. We will check an echocardiogram for any cardiac dysfunction. Holter for any supraventricular arrhythmias or sinus tachycardia; if unremarkable, could be all anxiety. Discussed with significant other. They agree with the plan. Orders: Orders CA echo transthoracic complete Today R06.02 - Shortness of breath ECG 7 day holter monitor Today R00.2 - Palpitations Coding Level of Care Code New Pt Level 3 (30632) Diagnoses SOB (shortness of breath) R06.02 Precordial chest pain R07.2 Heart palpitations R00.2
== END 2024-02-05 14:12 | disposition home or self-care (01) ==
PROVIDERS: PCP Internal Medicine; Visit Provider Internal Medicine
DX: R06.02 Shortness of breath (principal); R07.2 Precordial pain; R00.2 Palpitations
CPT/HCPCS: 99203

== ENCOUNTER → 2024-02-05 13:46 | Outpatient (BNVA) | payer OTHER, SELFPAY | PROVIDERS: PCP Internal Medicine; Visit Provider Internal Medicine | DX: R06.02 Shortness of breath (principal); R07.2 Precordial pain; R00.2 Palpitations | CPT/HCPCS: 99202 ==

== ENCOUNTER 2024-03-01 14:52 | Outpatient (REF) | payer OTHER, SELFPAY ==
[2024-03-01 15:25] LABS: MANUAL DIFF FLAG NO
[2024-03-01 15:42] LABS: Basophils Absolute Auto 0.1 X10*3/uL (0.0-0.2); Basophils Percent Auto 0.6 % (0-2); Eosinophils Absolute Auto 0.8 X10*3/uL (0.0-0.4); Eosinophils Percent Auto 7.3 % (0-4); Hematocrit 41.5 % (37.0-47.0); Hemoglobin 13.4 g/dl (12.0-16.0); Imm Gran Abs Auto 0.06 X10*3/uL (0.00-0.03); Imm Gran Pct Auto 0.6 % (0.0-0.4); Lymphocytes Absolute Auto 2.5 X10*3/uL (1.2-4.9); Lymphocytes Percent Auto 24.3 % (20-40); Mean Corpuscular HGB Conc 32.3 g/dl (31.0-35.0); Mean Corpuscular Hemoglobin 28.2 pg (27.0-33.0); Mean Corpuscular Volume 87.4 fL (80.0-98.0); Mean Platelet Volume 10.2 fL (9.4-12.3); Monocytes Absolute Auto 0.5 X10*3/uL (0.1-1.2); Neutrophils Absolute Auto 6.5 x10*3/uL (2.0-8.3); Neutrophils Percent Auto 62.2 % (45-73); Platelet Count 346 X10*3/uL (160-400); Red Blood Count 4.75 X10*6/uL (4.20-5.50); Red Cell Distribution Width 12.5 % (11.0-16.0); White Blood Count 10.4 X10*3/uL (4.8-10.8)
[2024-03-01 16:51] LABS: Alanine Aminotransferase 19 U/L (0-31); Albumin Level 4.1 g/dL (3.5-5.0); Alkaline Phosphatase 69 U/L (39-117); Anion Gap 11 (12-20); Aspartate Amino Transferase 16 U/L (5-31); Bilirubin Total 0.5 mg/dL (0.0-1.0); Blood Urea Nitrogen 11 mg/dL (9-16); Calcium 9.8 mg/dL (8.4-10.2); Carbon Dioxide 30 mmol/L (22-29); Chloride 103 mmol/L (96-108); Estimated Glomerular Filt Rate > 60; Glucose Random 93 mg/dL (60-115); Iron 41 mcg/dL (30-160); Percent Iron Saturation 18 % (15-50); Potassium 3.8 mmol/L (3.3-5.1); Sodium 140 mmol/L (135-145); Total Iron Binding Capacity 228 mcg/dL (228-428); Unsaturated Iron Binding 187 ug/dL
[2024-03-01 16:57] LABS: Thyroid Stimulating Hormone 0.43 uIU/mL (0.32-4.0); Vitamin D 25-OH Total 23.8 ng/mL (>30)
[2024-03-01 17:35] LABS: Folate 12.2 ng/mL (> or = 4.0); Vitamin B12 600 pg/mL (200-900)
== END 2024-03-01 14:53 | disposition home or self-care (01) ==
LOC: HO.LAB 14:52
PROVIDERS: PCP Internal Medicine; Visit Provider Internal Medicine
DX: D64.9 Anemia, unspecified (principal); R53.83 Other fatigue; E53.8 Deficiency of other specified B group vitamins; E55.9 Vitamin D deficiency, unspecified
CPT/HCPCS: 36415; 80053; 82306; 82607; 82746; 83540; 84443; 85025

== ENCOUNTER 2024-03-02 09:11 | Emergency (ER) | payer OTHER, SELFPAY ==
--- NOTE | ~2024-03-02 | XR_ITS ---
EXAMINATION: XR CHEST 2 VIEW CLINICAL INFORMATION: Cough and shortness of breath COMPARISON: 07/31/2016 TECHNIQUE: PA and lateral views of the chest obtained. FINDINGS: The lungs are clear. There are no pleural effusions. The cardiomediastinal silhouette is normal. XR/XR chest 2V IMPRESSION: No acute cardiopulmonary disease. Electronically signed by: David Silva MD 03/02/2024 11:21 AM EDT
[2024-03-02 09:21] VITALS: BP 124/78; PULSE 77; RESP 20; TEMP 36.7; O2SAT 100; BMI 28.9
[2024-03-02 10:05] LABS: IDNOW Serial# 08D9AD1C; Strep A Nucleic Acid Negative (Negative)
[2024-03-02 10:33] LABS: Influenza A PCR NEGATIVE (Negative); Influenza B PCR NEGATIVE (Negative); Resp Syncy Virus RNA Qual PCR NEGATIVE (Negative); SARS COV2 PCR INHOUSE NEGATIVE (Negative)
[2024-03-02] MEDS: Albuterol Sulfate 5 MG, Albuterol/Iprat 2.5/0.5MG 3 ML 3 ML INHALE (11:38)
[2024-03-02 11:40] VITALS: PULSE 88; RESP 22; O2SAT 96
[2024-03-02] MEDS: predniSONE 20 MG TABLET 40 MG PO (11:51)
--- NOTE | 2024-03-02 13:53 | ED_ITS ---
HPI - URI/Sore Throat General Chief Complaint: Upper Respiratory Symptoms Stated Complaint: Upper resp Time Seen by Provider: 03/02/24 11:14 Source: patient, RN notes reviewed and old records reviewed Mode of arrival: ambulatory History of Present Illness ED Provider: Fariba Santamaria PA-C [facility] Narrative: 28-year-old female with a past medical history of asthma, obesity, presenting to the ED complaining of dry cough, SOB, wheezing, generalized fatigue, and chest discomfort with cough x 1 week. Denies fever, travel, chest pain at rest, abdominal pain, pedal edema. 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 Related Data Home Medications ?Medication ?Instructions ?Recorded ?Confirmed valacyclovir 1 gram tablet 1,000 mg PO DAILY 11/06/23 02/05/24 hydroxyzine HCl 25 mg tablet 25 mg PO ONCE PRN 02/05/24 02/05/24 Previous Rx's ?Medication ?Instructions ?Recorded bupropion HCl 150 mg 24 hr tablet, 150 mg PO QAM 90 days #90 tabs 11/06/23 extended release fluticasone furoate 100 1 inh inhalation DAILY 30 days #60 11/28/23 mcg-vilanterol 25 mcg/dose ea inhalation powder blood pressure test kit-large #1 ea 12/22/23 hydrochlorothiazide 12.5 mg tablet 12.5 mg PO DAILY 90 days #90 tabs 12/22/23 sumatriptan succinate 25 mg tablet 25 mg PO Q2-4H PRN migraine 02/14/24 headache 30 days #9 tabs albuterol sulfate 2.5 mg/0.5 mL 5 mg inhalation Q4H PRN shortness 03/02/24 solution for nebulization of breath or wheezing #30 ea albuterol sulfate 90 mcg/actuation 2 puff inhalation Q4-6H PRN 03/02/24 aerosol inhaler shortness of breath or wheezing #6.7 grams prednisone 20 mg tablet 40 mg (2 x 20 mg) PO DAILY 5 days 03/02/24 #10 tabs Allergies Allergy/AdvReac Type Severity Reaction Status Date / Time No Known Allergies Allergy Verified 03/02/24 09:24 Review of Systems Review of Systems: Yes all other systems are reviewed and are negative Constitutional: Constitutional: Reports as per [facility] Past Medical History Attestation statement: The following information was validated with the patient. Source: old records reviewed Medical History Moderate persistent asthma Right hip pain Class 1 obesity with body mass index (BMI) of 31.0 to 31.9 in adult Physical exam History of asthma Surgical History No pertinent past surgical history Family History Family History Father Diabetes Alzheimer disease Hypercholesteremia Mother Anxiety Depression Diabetes Social History Social History Housing: Apartment Alcohol intake: never Patient Tobacco Use Status: Never used Tobacco e-Cigarette/Vaping Use: Never Used Second Hand Smoke Exposure: No Advance Directives: No Do you have a plan to hurt others: No Plan service: No Current occupational status: employed Current occupational exposures/hazards: No Cognitive needs: No Hearing needs: No Vision needs: Yes Physical Exam Vital Signs: Vital Signs: Last Vital Signs Temp 98.0 F 03/02/24 09:21 Pulse 88 03/02/24 11:40 Resp 22 H 03/02/24 11:40 BP 124/78 03/02/24 09:21 Pulse Ox 100 03/02/24 09:21 O2 Del Method Room Air 03/02/24 09:21 BMI result Body Mass Index 28.9 Const: General: cooperative, healthy appearing and no acute distress Orientation/consciousness: patient oriented x3 Limitations: no limitations HEENT: Head: Yes normal to inspection and Yes atraumatic Ears: hearing grossly normal bilaterally General nose exam: Normal external nose present Face and sinus: Yes normal facial exam Mouth: no drooling Throat: Yes posterior oropharynx normal, Yes uvula midline, No peritonsillar mass and No uvular edema Eyes: General: appearance normal, both eyes and all related structures EOM: EOMs intact bilaterally Neck: Neck: Yes normal visual inspection and Yes no meningeal signs Resp: Effort & Inspection: normal respiratory effort and no respiratory distress Auscultation: wheezes expiratory wheezes and inspiratory wheezes Cardio: Rate: regular rate Heart sounds: S1 normal heart sound present and S2 normal heart sound present GI: Inspection: Yes normal to inspection Palpation (GI): Soft to palpation, nontender, no guarding and not rigid Skin: Rashes: no rashes Wounds: no wounds Neuro: General: patient oriented x3, tone normal and no meningeal signs Cranial nerves: Yes CN's II-XII intact bilaterally Gait exam (Neuro): Normal gait present Extrem: General: Yes normal to inspection Course Course Course Narrative: -[id number]--COVID/flu/RSV and rapid strep negative -CXR unremarkable > on re-evaluation patient reports symptomatic improvement. Lungs CTA. Results discussed with patient including worrisome signs and symptoms and strict return precautions, and when to return to the emergency department. They verbalized understanding and feel safe for discharge at this time. Medications Administered Discontinued Medications Generic Name Dose Route Start Last Admin Trade Name Freq PRN Reason Stop Dose Admin Albuterol Sulfate 5 mg/ 0 mg 03/02/24 11:35 03/02/24 11:38 Albuterol/Ipratropium 3 ml INHALE 03/02/24 11:36 1 each ONCE ONE Administration Prednisone 40 mg 03/02/24 11:25 03/02/24 11:51 Prednisone 20 Mg Tablet PO 03/02/24 11:26 40 mg ONCE ONE Administration Medical Decision Making Medical Decision Making [facility] Narrative: 28-year-old female with a past medical history of asthma, obesity, presenting to the ED complaining of dry cough, SOB, wheezing, generalized fatigue, and chest discomfort with cough x 1 week. On exam vital signs stable, NAD, nontoxic appearing, inspiratory/expiratory wheeze noted. Talking in complete sentences, no respiratory distress. Concern for asthma exacerbation vs viral illness vs pneumonia. Low suspicion for ACS/PE or DVT Plan: Viral testing, rapid strep, CXR, ED brown protocol, p.o. prednisone Please refer to course for remaining clinical decision making, interpretation of labs/imaging results, and discussions with consultants and/or family members. Differential Diagnosis Differential Diagnoses: The differential diagnosis associated with the presentation includes As above Lab Data [facility] Lab Attestation statement: I reviewed the patient's lab results. Labs: Lab Results 03/02/24 Range/Units 09:35 Influenza Type A (PCR) NEGATIVE (Negative) Influenza Type B (PCR) NEGATIVE (Negative) RSV RNA Qual (PCR) NEGATIVE (Negative) SARS-CoV-2 RNA (RT-PCR) NEGATIVE (Negative) S. pyogenes GrpA AYSHA Negative (Negative) Independent Interpretation I performed an independent interpretation of an: Plain X-Ray Radiology Impression Discussion of test interpretation with radiology: I have reviewed the radiologist's reading. External Record Review External record reviewed: Inpatient record, Office record, Outpatient record, Prior outpatient labs, Prior outpatient radiology, Primary care record and Outside ED record Tests considered The following testing was considered but not selected: As above Prescription Management I considered prescription management with: Pain Medication and Antibiotic Chronic Conditions Patient?s care impacted by: Other (Asthma) Social Determinants Patient?s care significantly limited by Social Determinants of Health including: Other Social Determinant of Health Discharge Plan Discharge Clinical Impression: Asthma exacerbation Patient Disposition: Home, Self-Care Instructions: Asthma (DC) Additional Instructions: You tested negative for COVID, flu, RSV Your x-rays unremarkable Please use your machine and inhalers at home for shortness of breath/wheezing In addition take prednisone If her symptoms persist or worsen return to the emergency department Follow-up with her doctor Prescriptions: New prednisone 20 mg tablet 40 mg PO DAILY 5 Days Qty: 10 0RF albuterol sulfate 90 mcg/actuation HFA aerosol inhaler 2 puff inhalation Q4-6H PRN (Reason: shortness of breath or wheezing) Qty: 6.7 0RF albuterol sulfate 2.5 mg/0.5 mL solution for nebulization 5 mg inhalation Q4H PRN (Reason: shortness of breath or wheezing) Qty: 30 0RF No Action fluticasone furoate-vilanterol 100-25 mcg/dose blister with device 1 inh inhalation DAILY 30 Days Qty: 60 6RF sumatriptan succinate 25 mg tablet 25 mg PO Q2-4H PRN (Reason: migraine headache) 30 Days Qty: 9 0RF Rx Instructions: do not exceed 8 doses per 24 hrs hydrochlorothiazide 12.5 mg tablet 12.5 mg PO DAILY 90 Days Qty: 90 0RF (DME) blood pressure test kit-large Kit See Rx Instructions .Route Qty: 1 0RF Rx Instructions: As directed bupropion HCl 150 mg tablet extended release 24 hr 150 mg PO QAM 90 Days Qty: 90 1RF valacyclovir 1 gram tablet 1,000 mg PO DAILY hydroxyzine HCl 25 mg tablet 25 mg PO ONCE PRN Referrals: Jacque Hunter MD [Primary Care Provider] - 1 week Stand Alone Forms: Work/School Release Print Language: [place]
[2024-03-02 14:18] VITALS: BP 00/00; PULSE 88; RESP 22; TEMP 37.1; O2SAT 95
== END 2024-03-02 14:18 | disposition home or self-care (01) ==
PROVIDERS: Emergency Provider Emergency Medicine; PCP Internal Medicine
DX: J45.901 Unspecified asthma with (acute) exacerbation (principal); R05.9 Cough, unspecified; R07.89 Other chest pain; R06.02 Shortness of breath; R53.83 Other fatigue; Z03.818 Encounter for observation for suspected exposure to other biological agents ruled out; Z79.899 Other long term (current) drug therapy
CPT/HCPCS: 0241U; 71046; 87651; 94640; 99283; 99284

== ENCOUNTER → 2024-03-08 08:55 | Outpatient (REF) | payer OTHER, SELFPAY ==
--- NOTE | 2024-03-08 08:57 | HM_ITS ---
Conclusion: 1. Patient was monitored for total period of 6 days and 21 hours 2. Baseline was normal sinus rhythm with average heart of 95 beats per minute 3. No significant arrhythmias or pauses noted 4. Frequent sinus tachycardia noted 5. Patient reported to events of shortness of breath and palpitation correlating with sinus tachycardia MTDD
--- NOTE | 2024-03-08 08:57 | CA_ITS ---
Transthoracic Echocardiogram Patient (Last, First, Middle): Julieta Brady, Gender: Female Date of : 1995 Age: 29 Procedure Date: 03/08/2024 Procedure Type: Transthoracic Echocardiogram Location: OP Height: 175.26 cm Weight: 88.91 kg BSA: 2.05 m2 Heart Rate: bpm BP: 118 / 78 mmHg [employer]er [employer]ushes: TO Referring MD: Tadeo Glodman MD Symptoms: R06.02 - Shortness of breath Study Quality: Fair ECG Rhythm: Sinus Conclusions: - The left ventricular systolic function is normal. The calculated ejection fraction is 56% by biplane method. - No obvious valvular pathology seen on this study. - There is a small loculated pericardial effusion overlying the left ventricle. Findings Left Ventricle Normal left ventricular cavity size. There is normal left ventricular wall thickness. The left ventricular systolic function is normal. The calculated ejection fraction is 56% by biplane method. There is no evidence of regional wall motion abnormalities. Diastolic function is normal for age. LV peak GLS -21.4%. Right Ventricle Normal right ventricular cavity size and systolic function. Atria Both atria are normal in size. Aortic Valve There is a normal trileaflet aortic valve. There is no aortic valve stenosis. There is no aortic valve regurgitation. Mitral Valve The mitral valve appears normal. There is no mitral valve regurgitation. There is no mitral valve stenosis. Pulmonic Valve There is trace pulmonic valve regurgitation. Tricuspid Valve There is trace tricuspid valve regurgitation. There is no evidence of pulmonary hypertension. Great Vessels The asc aorta is normal in size. Venous The inferior vena cava is normal in size and collapses greater than 50% with inspiration. Pericardium/Pleural There is a small loculated pericardial effusion overlying the left ventricle. Prior Study Comparison No prior study available for comparison. Recommendations, Care & Conclusions No obvious valvular pathology seen on this study. Measurements 2D Linear Measurements IVSd: 0.91 0.6-0.9/0.6-1.0 cm LVIDd: 4.72 3.9-5.3/4.2-5.9 cm LVIDd Index: 2.30 2.4-3.2/2.2-3.1 cm/m2 LVIDs: 3.17 2.0-3.6 cm LVPWd: 0.84 0.7-1.1 cm LA Diam: 3.50 2.7-3.8/3.0-4.0 cm LAIDs Index: 1.71 1.5-2.3 cm/m2 LV Mass: 172.05 67-162/88-224 g LV Mass Index: 83.93 43-95/49-115 g/m2 LVOT Diam: 2.10 3.0+(-)1.3 cm 2D Systolic Function EF 4C: 56.30 >55% EF 2C: 56.50 >55% EF BiP: 55.80 >55% Mitral Valve MV Pk E: 0.87 MV PK A: 0.37 MV Decel Time: 169.00 E/A: 2.40 E'Lateral: 12.30 E'Medial: 8.38 E/E' Med: 10.40 E/E' Lat: 7.10 PHT: 49.00 MVA PHT: 4.49 Decel [place]: 5.15 Aortic Valve AoV Pk Arun: 1.33 AoV Mn Arun: 0.85 AoV VTI: 0.27 AoV Pk Grad: 7.00 Aov Mn Grad: 3.00 MELANIE Cont.VTI: 2.40 LVOT LVOT Pk Arun: 0.91 LVOT Mn Arun: 0.61 LVOT VTI: 0.19 LVOT Pk Grad: 3.00 LVOT Mn Grad: 2.00 LVOT Diam: 2.10 LVOT Area: 3.46 Diastolic Function MV Pk E: 0.87 MV Pk A: 0.37 E/A: 2.40 E'Medial: 8.38 E/E' Med: 10.40 E' Laterial: 12.30 E/E' Lat: 7.10 Right Ventricle TAPSE (mm): 22.00 TVS' Arun: 12.60 Tricuspid Valve RA Press: 3.00 Great Vessels Aorta Sinus of Valsalva: 2.88 2.0-3.5 cm Ao Asc: 2.80 2.1-3.4 cm Ao Arch: 2.40 Updated in Other Vendor System with Status of Final Tadeo Goldman MD electronically signed on 03/09/2024 11:51:52 AM with status of Final
== END ==
LOC: HO.CARD 08:55
PROVIDERS: PCP Internal Medicine; Visit Provider Internal Medicine
DX: R00.2 Palpitations (principal); R06.02 Shortness of breath
CPT/HCPCS: 93242; 93306; 93356

== ENCOUNTER → 2024-03-08 08:57 | Outpatient (BNV) | payer OTHER, SELFPAY | PROVIDERS: PCP Internal Medicine; Visit Provider Internal Medicine | DX: R00.0 Tachycardia, unspecified (principal) | CPT/HCPCS: 93244; 93306; 93356 ==

== ENCOUNTER 2024-03-15 15:53 | Outpatient (AMB) | payer OTHER, SELFPAY ==
[2024-03-15 16:41] VITALS: BMI 29.7
--- NOTE | 2024-03-15 16:41 | A.OFFPC_ITS ---
Vital Signs 03/15/24 16:41 03/15/24 16:49 Height 5 ft 9 in 5 ft 9 in Weight 201 lb 201 lb BMI 29.7 29.7 BP 140/100 H Blood Pressure Location Lt brachial Lt brachial Position Sitting Sitting Intake Visit Reasons: 4 Month F/U Intake Note: Patient here for a 4 month follow up Assistant Business Manager Required: No Accompanied by: Self / Same As Patient Allergies No Known Allergies Allergy (Verified 03/15/24 17:11) Medication List - Last Reconciled 03/15/24 by Jacque Staton MD albuterol sulfate 5 mg inhalation Q4H PRN albuterol sulfate 90 mcg/actuation 2 puffs inhalation Q4-6H PRN blood pressure test kit-large As directed bupropion HCl XL 150 mg PO QAM 90 days fluticasone furoate-vilanterol 100-25 mcg/dose 1 inh inhalation DAILY 30 days hydrochlorothiazide 12.5 mg PO DAILY 90 days hydroxyzine HCl 25 mg PO ONCE PRN sumatriptan succinate 25 mg PO Q2-4H PRN 30 days topiramate 25 mg PO DAILY valacyclovir 1,000 mg PO DAILY Tobacco use date assessed: 09/09/23 Dental Screening Dental Screen Date: 03/15/24 Did you have a dental visit in the last 12 months?: Yes Did you have a dental problem in the last 6 months where you did not have access to dental care?: No Was dental information given to patient?: Patient has dentist HPI HPI Comments History of Present Illness Details This is a 29 year old female with hypertension, moderate persistent asthma, mild major depression and anxiety that comes today complaining of feeling like she is goind to associated with chest wall pain and palpitations most likely due to a panic attack. She has stressful factors at home. I will refer her to psych outpatient to see what medication would be best for her. She does not like hydroxyzine because it makes her sleepy. BP elevated today and I will increase HCTZ to 25 mg. On long acting inhaler for her asthma dn still feels like she has to use rescue inhaler more than twice a month and I will refer her to pulmonology. Depression has improved with bupropion. [facility] Medical History (Updated 03/15/24 @ 17:20 by Jacque Staton MD) Moderate persistent asthma Right hip pain Class 1 obesity with body mass index (BMI) of 31.0 to 31.9 in adult Physical exam History of asthma Surgical History No pertinent past surgical history Family History Father Diabetes Alzheimer disease Hypercholesteremia Mother Anxiety Depression Diabetes Social History Housing: Apartment Alcohol intake: never Patient Tobacco Use Status: Never used Tobacco e-Cigarette/Vaping Use: Never Used Second Hand Smoke Exposure: No service: No Current occupational status: employed Current occupational exposures/hazards: No Cognitive needs: No Hearing needs: No Vision needs: Yes Female Reproductive History Menstrual Age of Menarche: 12 Questionnaire Thrive Questionnaire Date Thrive assessed: 09/09/23 LISA-7 AMB Questionnaire LISA-7 Date LISA - 7 assessed: 11/06/23 Source: Developed by Drs. Brian Saini, Libertad Esteves, Saul You and colleagues, with an educational hawa from [employer]. Review of Systems Const All systems reviewed & are unremarkable except as noted in HPI and below Card Denies chest pain at rest, Denies chest pain with activity, Denies edema, Denies irregular heart rhythm, Denies claudication, Denies dyspnea, Denies dyspnea on exertion, Denies orthopnea, Denies paroxysmal nocturnal dyspnea and Denies slow heart rate Resp Denies cough, Denies dyspnea and Denies dyspnea on exertion GI Denies abdominal pain, Denies change in bowel habits, Denies excessive flatus, Denies nausea and Denies vomiting Psych Reports anxiety, Reports depression and Reports panic attacks Physical exam (Primary Care) Vital Signs: Last Vital Signs BP 140/100 H 03/15/24 16:49 Care Plan Goal for BP management: Recheck BP with nurse navigator in 3 weeks. BP goal is equal or less than 130/80 Next steps: Increase HCTZ to 25 mg. BMI result Body Mass Index 29.7 BMI Assessment/Plan discussion: High BMI High, discussed plan: lifestyle, weight reduction, dietary and physical activity Tobacco/Smoking Status: Tobacco use Status Tobacco use date assessed 09/09/23 03/15/24 16:46 Patient Tobacco Use Status Never used Tobacco 03/15/24 16:46 e-Cigarette/Vaping Use Never Used 03/15/24 16:46 Thrive Assessment: Date of Thrive Assessment Date Thrive assessed 09/09/23 03/15/24 16:46 Resp Effort & Inspection: normal respiratory effort Auscultation: clear to auscultation bilaterally Cardio Jugular venous distension: no JVD Rate: regular rate Rhythm: regular rhythm Heart sounds: S1 normal heart sound present and S2 normal heart sound present Extrem General: Yes full ROM Office Procedures Flu Questionnaire Does the patient have a severe egg allergy?: No Immunizations Fluarix Triv [id number] (PF) 45 mcg (15 mcg x 3)/0.5 mL IM syringe Performing Provider: Jacque Staton MD [facility] Documented (not given) by: JH Rodrigues on 03/15/24 16:54 Reason Not Given: Patient Refused Coding Level of Care Code Est Pt Level 4 (96538) Complex EM visit Add On G2211 Diagnoses Moderate persistent asthma without complication J45.40 Asthma complication type: uncomplicated Mild major depression F32.0 LISA (generalized anxiety disorder) F41.1 Essential hypertension I10 Time Spent (min) 23 Assessment & Plan Assessment & Plan (1) Moderate persistent asthma: Code(s): J45.40 - Moderate persistent asthma, uncomplicated Category: Medical Qualifiers: Asthma complication type: uncomplicated Qualified Code(s): J45.40 - Moderate persistent asthma, uncomplicated Plan: Continue long acting inhaler. Use rescue inhaler as needed. Refer to pulmonology. (2) Mild major depression: Code(s): F32.0 - Major depressive disorder, single episode, mild Category: Medical Plan: Continue bupropion. Refer to psych outpatient. (3) LISA (generalized anxiety disorder): Code(s): F41.1 - Generalized anxiety disorder Category: Medical Plan: Refer to psych outpatient. (4) Essential hypertension: Code(s): I10 - Essential (primary) hypertension Category: Medical Plan: Increase HCTZ to 25 mg. BP goal is equal or less than 130/80. Orders: Orders Influenza [id number] Immunization Today Z23 - Encounter for immunization Referrals Pulmonology Referral J45.40 - Moderate persistent asthma, uncomplicated Psychiatry Outpatient Consultation Service F41.0 - Panic disorder [episodic paroxysmal anxiety] Medications: New hydrochlorothiazide 25 mg PO DAILY 90 tabs 1RF 90 days Discontinued hydrochlorothiazide Discontinued Reason: Patient Completed Course 12.5 mg PO DAILY 90 days 90 tabs 0RF I10 - Essential (primary) hypertension
[2024-03-15 16:49] VITALS: BP 140/100; BMI 29.7
== END 2024-03-15 17:28 | disposition home or self-care (01) ==
LOC: HO.HMCH 15:53
PROVIDERS: PCP Internal Medicine; Visit Provider Internal Medicine
DX: J45.40 Moderate persistent asthma, uncomplicated (principal); F32.0 Major depressive disorder, single episode, mild; F41.1 Generalized anxiety disorder; I10 Essential (primary) hypertension; Z23 Encounter for immunization

== ENCOUNTER → 2024-03-15 15:53 | Outpatient (BNVA) | payer OTHER, SELFPAY | PROVIDERS: PCP Internal Medicine; Visit Provider Internal Medicine | DX: J45.40 Moderate persistent asthma, uncomplicated (principal); F32.0 Major depressive disorder, single episode, mild; F41.1 Generalized anxiety disorder; I10 Essential (primary) hypertension | CPT/HCPCS: 90471; 99212 ==

== ENCOUNTER 2024-04-01 09:29 | Outpatient (REF) | payer OTHER, SELFPAY ==
[2024-04-06 06:54] LABS: Class Alternaria alternata 0; Class Aspergillus fumigatus 0; Class Bermuda Grass 0; Class Birch 0; Class Cat Dander 0; Class Cladosporium herbarum 0; Class Cockroach 2; Class Common Ragweed 0; Class Cottonwood 0; Class Derm. pterony 2; Class Dermatophagoides farinae 2; Class Dog Dander 0; Class Elm 0; Class Maple Box Elder 0; Class Mountain Cedar 0; Class Mouse Urine Protein 0; Class Mugwort 0; Class Oak 0; Class Penicillium crysogenum 0; Class Rough Pigweed 0; Class Sheep Sorrel 0; Class Sycamore 0; Class Timothy Grass 0; Class Walnut Tree 0; Class White Ash 0; Class White Mulberry 0; D001 IgE D pteronyssinus 3.23 kU/L; D002 - IgE D farinae 2.73 kU/L; E001 - IgE Cat Dander <0.10 kU/L; E005 - IgE Dog Dander <0.10 kU/L; E072-IgE Mouse Urine <0.10 kU/L; G002 IgE Bermuda Grass <0.10 kU/L; G006 - IgE Timothy Grass <0.10 kU/L; Immunoglobulin E 205 kU/L (<OR=114); M001 IgE Penicillium chrysogen <0.10 kU/L; M002 - IgE Cladosporium herbar <0.10 kU/L; M003 - IgE Aspergillus fumigat <0.10 kU/L; M006 - IgE Alternaria alternat <0.10 kU/L; T001 IgE Maple/Box Elder <0.10 kU/L; T003 IgE Common Silver Birch <0.10 kU/L; T006 - IgE Cedar, Mountain <0.10 kU/L; T007 - IgE Oak, White <0.10 kU/L; T008 IgE Elm, American <0.10 kU/L; T010 - IgE Walnut <0.10 kU/L; T011 - IgE Maple Leaf Sycamore <0.10 kU/L; T014 - IgE Cottonwood <0.10 kU/L; T015 - IgE Ash, White <0.10 kU/L; T070 - IgE White Mulberry <0.10 kU/L; W001 - IgE Ragweed, Short <0.10 kU/L; W006 - IgE Mugwort <0.10 kU/L; W014 IgE Pigweed, Common <0.10 kU/L; W018 IgE Sheep Sorrel <0.10 kU/L
== END 2024-04-01 09:30 | disposition home or self-care (01) ==
LOC: HO.LAB 09:29
PROVIDERS: PCP Internal Medicine; Visit Provider Internal Medicine Pulmonary Disease
DX: J45.40 Moderate persistent asthma, uncomplicated (principal); Z91.09 Other allergy status, other than to drugs and biological substances
CPT/HCPCS: 36415; 82785; 86003; 99202

== ENCOUNTER 2024-04-01 09:29 | Outpatient (AMB) | payer OTHER, SELFPAY ==
[2024-04-01 09:31] VITALS: BP 118/62; PULSE 75; O2SAT 98; BMI 29.5
--- NOTE | 2024-04-01 09:31 | A.OFFVIS_ITS ---
Vital Signs 04/01/24 09:31 Height 5 ft 9 in Weight 200 lb BMI 29.5 BP 118/62 Blood Pressure Location Rt brachial Position Sitting Pulse 75 Pulse Source Doppler Pulse Oximetry (%) 98 Oxygen Delivery Method Room Air Intake Visit Reasons: moderate asthma Allergies No Known Allergies Allergy (Verified 04/01/24 09:35) HPI HPI moderate asthma: Details: 29-year-old lady, nonsmoker, with underlying asthma since childhood referred for pulmonary evaluation. Patient states that she previously has been using albuterol MDI with worsening control, she has been recently put on Breo by her primary care provider and has used it for at least 2 months, also still with suboptimal control of her symptoms. She denies exposure to industrial dusts. Patient does have a dog as a pet. She denies having family history of lung disease. [facility] Medical History Moderate persistent asthma Right hip pain Class 1 obesity with body mass index (BMI) of 31.0 to 31.9 in adult Physical exam History of asthma Surgical History No pertinent past surgical history Family History Father Diabetes Alzheimer disease Hypercholesteremia Mother Anxiety Depression Diabetes Social History Housing: Apartment Alcohol intake: never Patient Tobacco Use Status: Never used Tobacco e-Cigarette/Vaping Use: Never Used Second Hand Smoke Exposure: No service: No Current occupational status: employed Current occupational exposures/hazards: No Cognitive needs: No Hearing needs: No Vision needs: Yes Female Reproductive History Menstrual Age of Menarche: 12 Review of Systems Const Denies daytime sleepiness, Denies excessive sweating, Denies fatigue, Denies fever(s), Denies lethargy, Denies malaise, Denies night sweats, Denies snoring and Denies weight loss Eyes Denies blurry vision and Denies itchy eyes ENT Denies nasal congestion, Denies post nasal drip, Denies sinus pain, Denies sinus pressure and Denies other ( Thrush) Card Denies chest pain, Denies pedal edema, Denies dyspnea, Denies orthopnea and Denies paroxysmal nocturnal dyspnea Resp Denies cough, Denies hemoptysis, Denies excessive phlegm production, Denies dyspnea, Denies snoring and Reports wheezing GI Denies abdominal pain and Denies heartburn Musc Denies myalgias, Denies arthralgias and Denies joint swelling Skin/Breast Denies rash Neuro Denies memory loss and Denies seizure-like activity Psych Denies abnormal sleep pattern, Denies anxiety and Denies memory loss Endo Denies excessive sweating, Denies fatigue and Denies heat intolerance Jonathan/Lymph Denies easy bruising Aller/Immun Denies itchy eyes, Denies seasonal rhinorrhea and Reports wheezing Physical Exam Vital Signs: Last Vital Signs Pulse 75 04/01/24 09:31 BP 118/62 04/01/24 09:31 Pulse Ox 98 04/01/24 09:31 Oxygen Delivery Method Room Air 04/01/24 09:31 BMI result Body Mass Index 29.5 Const General: no acute distress and alert Nutritional Appearance: not obese Orientation/consciousness: Other orientation findings ( oriented) HEENT Head: Yes atraumatic Eyes General: appearance normal, both eyes and all related structures Sclerae: sclerae normal EOM: EOMs intact bilaterally Neck Neck: Yes supple Lymphatic: no lymphadenopathy noted Resp Effort & Inspection: normal respiratory effort and no use of accessory muscles Auscultation: clear to auscultation bilaterally Cardio Rate: regular rate Rhythm: regular rhythm Heart sounds: no gallops, no murmurs and no rubs Skin General skin exam: other ( warm) Extrem General: No clubbing, No cyanosis and No edema Assessment & Plan Assessment & Plan (1) Severe persistent asthma: Code(s): J45.50 - Severe persistent asthma, uncomplicated Category: Medical Plan: Suboptimal control on Breo, albuterol MDI, and albuterol nebs. Will obtain full PFT. Will consider immunologic therapy. (2) Environmental allergies: Code(s): Z91.09 - Other allergy status, other than to drugs and biological substances Category: Medical Plan: Will obtain RAST and IgE level for further evaluation. Patient does have underlying significant eosinophilia. Orders: Orders PFT pulmonary function test Today J45.40 - Moderate persistent asthma, uncomplicated Resp Allergy Profile Region I Today J45.40 - Moderate persistent asthma, uncomplicated Coding Level of Care Code New Pt Level 4 (47410) Diagnoses Severe persistent asthma J45.50 Environmental allergies Z91.09
== END 2024-04-01 09:52 | disposition home or self-care (01) ==
PROVIDERS: PCP Internal Medicine; Visit Provider Internal Medicine Pulmonary Disease
DX: J45.50 Severe persistent asthma, uncomplicated (principal); Z91.09 Other allergy status, other than to drugs and biological substances
CPT/HCPCS: 99204

== ENCOUNTER 2024-05-03 13:11 | Emergency (ER) | payer OTHER, SELFPAY ==
--- NOTE | ~2024-05-03 | CT_ITS ---
EXAMINATION: CT HEAD WITHOUT CONTRAST CLINICAL INFORMATION: Headache. COMPARISON: MRI brain dated 01/09/2024; CT brain dated 12/24/2023. TECHNIQUE: Contiguous axial imaging was performed from the skull base to vertex without intravenous administration of contrast. Multiplanar reformatted images are submitted. This CT examination was performed using dose optimization techniques as appropriate, variously including the following: *Automated exposure control *Adjustment of mA and/or kV according to patient size (this includes techniques or standardized protocols for targeted exams where dose is matched to indication/reason for exam; i.e. extremities or head) *Use of iterative reconstruction technique DLP: 676 mGy-cm FINDINGS: There is no acute intracranial hemorrhage or evidence of territorial infarction. No abnormal mass effect or midline shift is seen. Lockhart to white matter differentiation is well preserved. There is no abnormal attenuation within the brain parenchyma. The ventricles are normal in size. No extra-axial fluid collections are identified. The calvarium and scalp soft tissues are normal. The middle ear cavity and mastoid air cells are clear. The visualized paranasal sinuses are clear. CT/CT head/brain wo IV con IMPRESSION: No acute intracranial pathology. Electronically signed by: Ezra Marrufo MD 05/03/2024 07:46 PM EST
[2024-05-03 13:35] VITALS: BP 104/67; PULSE 84; RESP 16; TEMP 36.9; O2SAT 100; BMI 28.9
--- NOTE | 2024-05-03 13:59 | ED_ITS ---
HPI - General Adult General Chief complaint: Headache Stated complaint: Burning sensation in head Time Seen by Provider: 05/03/24 15:17 Source: patient and RN notes reviewed Mode of arrival: ambulatory Limitations: no limitations History of Present Illness ED Provider: Nia Stanton PA-C HPI narrative: This is a 29-year-old female who presents emergency department who presents emergency department with concerns for constant headache for the last week. Patient states that 1 week ago she developed a headache that started in her frontal region, and back of her head. She states that her pain has been waxing and waning in severity. She does report that this is the worst headache of her life. Denies any recent head trauma. She also reports some lightheadedness, and photosensitivity. She has a history of migraines, states that her symptoms feel like her migraines however is more severe and pain. She states that she has been taking Topamax, sumatriptan, and ibuprofen which has provided her without any relief. She denies any recent fevers, chills, chest pain, shortness of breath, abdominal pain, nausea, vomiting or diarrhea. Denies any vomiting. She does endorse slight nausea. No diarrhea constipation. No sick contacts. No other complaints or concerns at this time. MD complaint: Headache Onset (ago): week(s) Location: head Radiation: non-radiation Severity: moderate Quality: aching Pain Consistency: constant Relieving factors: none Exacerbating factors: none Associated symptoms: denies other symptoms Treatments prior to arrival: none Related Data Home Medications ?Medication ?Instructions ?Recorded ?Confirmed valacyclovir 1 gram tablet 1,000 mg PO DAILY 11/06/23 03/15/24 hydroxyzine HCl 25 mg tablet 25 mg PO ONCE PRN 02/05/24 03/15/24 topiramate 25 mg tablet 25 mg PO DAILY 03/15/24 03/15/24 Previous Rx's ?Medication ?Instructions ?Recorded fluticasone furoate 100 1 inh inhalation DAILY 30 days #60 11/28/23 mcg-vilanterol 25 mcg/dose ea inhalation powder blood pressure test kit-large #1 ea 12/22/23 sumatriptan succinate 25 mg tablet 25 mg PO Q2-4H PRN migraine 02/14/24 headache 30 days #9 tabs albuterol sulfate 2.5 mg/0.5 mL 5 mg inhalation Q4H PRN shortness 10/22/24 solution for nebulization of breath or wheezing #30 ea albuterol sulfate 90 mcg/actuation 2 puff inhalation Q4-6H PRN 03/02/24 aerosol inhaler shortness of breath or wheezing #6.7 grams hydrochlorothiazide 25 mg tablet 25 mg PO DAILY 90 days #90 tabs 03/15/24 bupropion HCl 150 mg 24 hr tablet, 150 mg PO QAM 90 days #90 tabs 05/02/24 extended release Allergies Allergy/AdvReac Type Severity Reaction Status Date / Time No Known Allergies Allergy Verified 05/03/24 13:38 Review of Systems 2 Review of Systems: Yes all other systems are reviewed and are negative Constitutional: Constitutional: Reports as per [facility] Past Medical History Attestation statement: The following information was validated with the patient. Medical History Moderate persistent asthma Right hip pain Class 1 obesity with body mass index (BMI) of 31.0 to 31.9 in adult Physical exam History of asthma Surgical History No pertinent past surgical history Family History Family History Father Diabetes Alzheimer disease Hypercholesteremia Mother Anxiety Depression Diabetes Social History Social History Housing: Apartment Alcohol intake: never Patient Tobacco Use Status: Never used Tobacco e-Cigarette/Vaping Use: Never Used Second Hand Smoke Exposure: No service: No Current occupational status: employed Current occupational exposures/hazards: No Cognitive needs: No Hearing needs: No Vision needs: Yes Physical Exam ED Vital Signs: Vital Signs - 24 hr 05/03/24 13:35 05/03/24 16:19 05/03/24 16:56 Temperature 98.4 F 97.8 F Pulse Rate 84 88 80 Respiratory Rate 16 16 Blood Pressure 104/67 137/84 137/70 Pulse Oximetry 100 96 Oxygen Delivery Method Room Air Room Air 05/03/24 16:56 05/03/24 16:56 05/03/24 18:06 Temperature 97.2 F Pulse Rate 80 99 77 Respiratory Rate 16 Blood Pressure 133/80 130/82 121/74 Pulse Oximetry 100 Oxygen Delivery Method Room Air 05/03/24 20:11 Temperature 97.8 F Pulse Rate 70 Respiratory Rate 16 Blood Pressure 101/64 Pulse Oximetry 95 Oxygen Delivery Method Room Air BMI result Body Mass Index 28.9 Const General: cooperative, comfortable and no acute distress Orientation/consciousness: patient oriented x3 Limitations: no limitations HENMT Head: Yes normal to inspection, Yes normocephalic and Yes atraumatic Ears: hearing grossly normal bilaterally General nose exam: Normal external nose present Face and sinus: Yes normal facial exam Mouth: Normal oral and palatal mucosa present, oropharynx normal and moist mucous membranes Throat: Yes posterior oropharynx normal Eyes General: appearance normal, both eyes and all related structures Eyelids: Yes eyelids normal Conjunctivae: conjunctivae normal Sclerae: sclerae normal Pupils: Equal, round and reactive pupils present EOM: EOMs intact bilaterally Neck Neck: Yes normal visual inspection, Yes full ROM, Yes no lymphadenopathy and Yes no meningeal signs Lymphatic: no lymphadenopathy noted Chest Chest palpation & inspection: normal inspection of the chest Resp Effort & Inspection: normal respiratory effort and able to speak in complete sentences Auscultation: clear to auscultation bilaterally, no crackles, no rales, no rhonchi and no wheezes Cardio Rate: regular rate Rhythm: regular rhythm Heart sounds: S1 normal heart sound present and S2 normal heart sound present GI Inspection: Yes normal to inspection Skin General skin exam: no rashes or lesions noted Trauma: no lacerations or abrasions Wounds: no wounds Neuro General: patient oriented x3, moves all extremities and no meningeal signs Cranial nerves: Yes CN's II-XII intact bilaterally and Yes Equal, round and reactive pupils present Gait exam (Neuro): Normal gait present Motor exam (neuro): 5/5 motor strength present throughout, Pronator motor function not present, no tremor noted and Motor fasciculations not present Coordination: [id number] test normal and [id number] test normal Romberg Test: Negative Pupils: Normal pupillary reactivity/response: bilateral Extrem General: Yes normal to inspection Right upper extremity: normal to inspection Left upper extremity: normal to inspection Right lower extremity: normal to inspection Left lower extremity: normal to inspection Course Course Course Narrative: RME: 29-year-old female history of migraines presents to the ED for headache. Patient states burning sensation in the head with some photophobia pressure. Patient states no relief from Topamax that was prescribed by neurologist. Reevaluation(s) Reevaluation #1: Labs returned, no leukocytosis, stable H&H, chemistry within normal limits, she is not , negative flu, RSV, COVID, strep. She is not orthostatic. CT head still pending. Patient remained stable. We will continue to closely monitor Time: 18:51 Reevaluation #2: Still awaiting CT scan, patient reporting some nausea, will medicate with Zofran 4 mg ODT. Patient reports minimal relief from Tylenol. Sign-out given to my colleague, Ferny Wei PA-C pending CT scan, and disposition. Time: 19:19 Medications Administered Discontinued Medications Generic Name Dose Route Start Last Admin Trade Name Freq PRN Reason Stop Dose Admin Acetaminophen 975 mg 05/03/24 17:17 05/03/24 17:40 Acetaminophen 325 Mg Tablet PO 05/03/24 17:18 975 mg ONCE ONE Administration Ondansetron HCl 4 mg 05/03/24 19:18 05/03/24 19:34 Ondansetron Odt 4 Mg Tab.Rapdis TRANSLINGU 05/03/24 19:19 4 mg ONCE ONE Administration Medical Decision Making Medical Decision Making [facility] Narrative: This is a 29-year-old female who presents emergency department with complaints of headache x1 week. On arrival, vital signs within normal limits. She is speaking full sentences under no acute distress. She is neurologically intact. Patient does report that this is the worst headache of her life, given this, will obtain CT head. No meningeal signs. No nuchal rigidity. Will treat with Tylenol pending CT scan. She is well-appearing, does not appear to be in any acute distress. Will obtain labs to rule out any anemia. Will also obtain orthostatics to rule out orthostatic hypotension. Plan: Labs, CT head Differential Diagnosis Differential Diagnoses: The differential diagnosis associated with the presentation includes Migraine headache, tension headache, sinusitis, COVID, flu, RSV Lab Data [facility] Lab Attestation statement: I reviewed the patient's lab results. 05/03/24 16:48 05/03/24 16:48 Labs: Lab Results 05/03/24 05/03/24 Range/Units 16:25 16:48 WBC 8.7 (4.8-10.8) X10*3/uL RBC 5.36 (4.20-5.50) X10*6/uL Hgb 15.3 (12.0-16.0) g/dl Hct 45.7 (37.0-47.0) % MCV 85.3 (80.0-98.0) fL MCH 28.5 (27.0-33.0) pg MCHC 33.5 (31.0-35.0) g/dl RDW 13.4 (11.0-16.0) % Plt Count 322 (160-400) X10*3/uL MPV 9.7 (9.4-12.3) fL Immature Gran % (Auto) 0.2 (0.0-0.4) % Neut % (Auto) 61.2 (45-73) % Lymph % (Auto) 25.3 (20-40) % [place] % (Auto) 4.6 (2-11) % Eos % (Auto) 7.9 H (0-4) % Baso % (Auto) 0.8 (0-2) % Lymph # (Auto) 2.2 (1.2-4.9) X10*3/uL [place] # (Auto) 0.4 (0.1-1.2) X10*3/uL Eos # (Auto) 0.7 H (0.0-0.4) X10*3/uL Baso # (Auto) 0.1 (0.0-0.2) X10*3/uL Abs Immat Gran (auto) 0.02 (0.00-0.03) X10*3/uL Absolute Neuts (auto) 5.3 (2.0-8.3) x10*3/uL Absolute Nucleated RBC 0.000 (0.0-0.012) X10*3/uL Nucleated RBC % (auto) 0.0 (0.0-0.2) /100WBC Sodium 141 (135-145) mmol/L Potassium 4.1 (3.3-5.1) mmol/L Chloride 107 (96-108) mmol/L Carbon Dioxide 26 (22-29) mmol/L Anion Gap 12 (12-20) BUN 11 (9-16) mg/dL Creatinine 0.92 (0.5-1.4) mg/dL Estim Creat Clear Calc 108.1 Estimated GFR > 60 Random Glucose 92 (60-115) mg/dL Calcium 9.4 (8.4-10.2) mg/dL Total Bilirubin 0.5 (0.0-1.0) mg/dL AST 19 (5-31) U/L ALT 20 (0-31) U/L Alkaline Phosphatase 83 (39-117) U/L Total Protein 8.2 H (6.5-8.0) g/dL Albumin 4.6 (3.5-5.0) g/dL Beta HCG, Quant < 2 mIU/mL Influenza Type A (PCR) NEGATIVE (Negative) Influenza Type B (PCR) NEGATIVE (Negative) RSV RNA Qual (PCR) NEGATIVE (Negative) SARS-CoV-2 RNA (RT-PCR) NEGATIVE (Negative) S. pyogenes GrpA AYSHA Negative (Negative) Radiology Impression Discussion of test interpretation with radiology: I have reviewed the radiologist's reading. Radiologist Impression: FINDINGS: There is no acute intracranial hemorrhage or evidence of territorial infarction. No abnormal mass effect or midline shift is seen. [place] to white matter differentiation is well preserved. There is no abnormal attenuation within the brain parenchyma. The ventricles are normal in size. No extra-axial fluid collections are identified. The calvarium and scalp soft tissues are normal. The middle ear cavity and mastoid air cells are clear. The visualized paranasal sinuses are clear. CT/CT head/brain wo IV con IMPRESSION: No acute intracranial pathology. Electronically signed by: Ezra Marrufo MD 05/03/2024 07:46 PM [facility] [place] Review External record reviewed: Inpatient record, Office record, Outpatient record, Prior outpatient labs, Prior outpatient radiology, Primary care record and Outside ED record Discharge Plan Discharge Clinical Impression: Headache, migraine Patient Disposition: Home, Self-Care Instructions: Migraine Headache (ED) Additional Instructions: You were seen in the emergency department due to headaches. Your workup today was reassuring. You likely are experiencing migraine headaches. Please continue to stay well hydrated, physical and mental rest can also help. You tested negative for COVID, flu, RSV, and strep throat. Follow-up with your neurologist, and PCP. If any new or worsening symptoms occur including but not limited to worsening pain, fevers, chills, chest pain, shortness for breath, please seek emergent care. Prescriptions: No Action fluticasone furoate-vilanterol 100-25 mcg/dose blister with device 1 inh inhalation DAILY 30 Days Qty: 60 6RF sumatriptan succinate 25 mg tablet 25 mg PO Q2-4H PRN (Reason: migraine headache) 30 Days Qty: 9 0RF Rx Instructions: do not exceed 8 doses per 24 hrs bupropion HCl 150 mg tablet extended release 24 hr 150 mg PO QAM 90 Days Qty: 90 1RF albuterol sulfate 90 mcg/actuation HFA aerosol inhaler 2 puff inhalation Q4-6H PRN (Reason: shortness of breath or wheezing) Qty: 6.7 0RF albuterol sulfate 2.5 mg/0.5 mL solution for nebulization 5 mg inhalation Q4H PRN (Reason: shortness of breath or wheezing) Qty: 30 0RF (DME) blood pressure test kit-large Kit See Rx Instructions .Route Qty: 1 0RF Rx Instructions: As directed valacyclovir 1 gram tablet 1,000 mg PO DAILY hydroxyzine HCl 25 mg tablet 25 mg PO ONCE PRN topiramate 25 mg tablet 25 mg PO DAILY hydrochlorothiazide 25 mg tablet 25 mg PO DAILY 90 Days Qty: 90 1RF Interventions: ED Discharge Assessment Last Done: 05/03/24 20:11 Discharge Date/Time: 05/03/24 20:12 Print Language: Nepali
[2024-05-03 16:19] VITALS: BP 137/84; PULSE 88; RESP 16; TEMP 36.6; O2SAT 96
[2024-05-03 16:43] LABS: IDNOW Serial# 58CA691E; Strep A Nucleic Acid Negative (Negative)
[2024-05-03 16:56] VITALS: BP 130/82; BP 133/80; BP 137/70; PULSE 80; PULSE 99
[2024-05-03 16:56] LABS: MANUAL DIFF FLAG NO
[2024-05-03 16:58] LABS: Basophils Absolute Auto 0.1 X10*3/uL (0.0-0.2); Basophils Percent Auto 0.8 % (0-2); Eosinophils Absolute Auto 0.7 X10*3/uL (0.0-0.4); Eosinophils Percent Auto 7.9 % (0-4); Hematocrit 45.7 % (37.0-47.0); Hemoglobin 15.3 g/dl (12.0-16.0); Imm Gran Abs Auto 0.02 X10*3/uL (0.00-0.03); Imm Gran Pct Auto 0.2 % (0.0-0.4); Lymphocytes Absolute Auto 2.2 X10*3/uL (1.2-4.9); Lymphocytes Percent Auto 25.3 % (20-40); Mean Corpuscular HGB Conc 33.5 g/dl (31.0-35.0); Mean Corpuscular Hemoglobin 28.5 pg (27.0-33.0); Mean Corpuscular Volume 85.3 fL (80.0-98.0); Mean Platelet Volume 9.7 fL (9.4-12.3); Monocytes Absolute Auto 0.4 X10*3/uL (0.1-1.2); Monocytes Percent Auto 4.6 % (2-11); Neutrophils Absolute Auto 5.3 x10*3/uL (2.0-8.3); Neutrophils Percent Auto 61.2 % (45-73); Platelet Count 322 X10*3/uL (160-400); Red Blood Count 5.36 X10*6/uL (4.20-5.50); Red Cell Distribution Width 13.4 % (11.0-16.0); White Blood Count 8.7 X10*3/uL (4.8-10.8)
[2024-05-03 17:13] LABS: Influenza A PCR NEGATIVE (Negative); Influenza B PCR NEGATIVE (Negative); Resp Syncy Virus RNA Qual PCR NEGATIVE (Negative); SARS COV2 PCR INHOUSE NEGATIVE (Negative)
[2024-05-03 17:22] LABS: Albumin Level 4.6 g/dL (3.5-5.0); Anion Gap 12 (12-20); Aspartate Amino Transferase 19 U/L (5-31); Bilirubin Total 0.5 mg/dL (0.0-1.0); Blood Urea Nitrogen 11 mg/dL (9-16); Calcium 9.4 mg/dL (8.4-10.2); Carbon Dioxide 26 mmol/L (22-29); Chloride 107 mmol/L (96-108); Creatinine Clr Calc Pharmacy 108.1; Estimated Glomerular Filt Rate > 60; Glucose Random 92 mg/dL (60-115); Potassium 4.1 mmol/L (3.3-5.1); Sodium 141 mmol/L (135-145); Total Protein 8.2 g/dL (6.5-8.0)
[2024-05-03 17:30] LABS: HCG Quantitative < 2 mIU/mL
[2024-05-03] MEDS: Acetaminophen 325 MG TABLET 975 MG PO (17:40)
[2024-05-03 18:06] VITALS: BP 121/74; PULSE 77; RESP 16; TEMP 36.2; O2SAT 100
[2024-05-03] MEDS: Ondansetron ODT 4 MG TAB.RAPDIS TRANSLINGU (19:34)
[2024-05-03 20:11] VITALS: BP 101/64; PULSE 70; RESP 16; TEMP 36.6; O2SAT 95
[2024-05-03 23:00] LABS: Alanine Aminotransferase 20 U/L (0-31); Alkaline Phosphatase 83 U/L (39-117)
== END 2024-05-03 20:12 | disposition home or self-care (01) ==
PROVIDERS: Physician Assistant Medical; Emergency Provider Emergency Medicine; PCP Internal Medicine
DX: G43.909 Migraine, unspecified, not intractable, without status migrainosus (principal); Z03.818 Encounter for observation for suspected exposure to other biological agents ruled out; J45.909 Unspecified asthma, uncomplicated
CPT/HCPCS: 0241U; 36415; 70450; 80053; 84702; 85025; 87651; 99283; 99284

== ENCOUNTER 2024-05-10 14:30 | Outpatient (AMB) | payer OTHER, SELFPAY ==
[2024-05-10 14:33] VITALS: BP 120/64; PULSE 77; BMI 29.8
--- NOTE | 2024-05-10 14:33 | MHC.OFFVIS ---
Vital Signs 05/10/24 14:33 Height 5 ft 9 in Weight 201 lb 15.095 oz BMI 29.8 BP 120/64 Blood Pressure Location Lt brachial Position Sitting Pulse 77 Pulse Source Monitor Intake Visit Reasons: 3m s/p echo/holter Intake Note: 3mth f/up echo/holter Gastroenterologist Required: No Accompanied by: Self / Same As Patient Allergies No Known Allergies Allergy (Verified 05/03/24 13:38) Medication List - Last Reconciled 05/10/24 by Kimberly Grover NP-C albuterol sulfate 5 mg inhalation Q4H PRN albuterol sulfate 90 mcg/actuation 2 puffs inhalation Q4-6H PRN blood pressure test kit-large As directed bupropion HCl XL 150 mg PO QAM 90 days fluticasone furoate-vilanterol 100-25 mcg/dose 1 inh inhalation DAILY 30 days hydrochlorothiazide 25 mg PO DAILY 90 days hydroxyzine HCl 25 mg PO ONCE PRN sumatriptan succinate 25 mg PO Q2-4H PRN 30 days topiramate 25 mg PO DAILY valacyclovir 1,000 mg PO DAILY HPI HPI 3m s/p echo/holter: Details: Julieta is a 29-year-old female with past medical history of hypertension, asthma, obesity who was recently evaluated for shortness of breath, chest discomfort and heart palpitations. She underwent an echocardiogram and Holter monitor and now presents for follow-up. Today she reports that she continues to have symptoms periodically. They occur when she is sitting and come on randomly. She 1st notices some shortness of breath then heart palpitations and then she will feel a tightness in her chest. The symptoms can last several minutes before resolving. She has been given antianxiety medication by her PCP. She does not get any of these symptoms during physical activity. She says she tries to stay active throughout the day. She has 4 children that keep her on the go. Her asthma is not optimally controlled and she will be starting on a new injectable medication. She has no dizziness, presyncope, syncope. No PND, orthopnea or edema. She is concerned about the echocardiogram findings of small pericardial effusion. [facility] Medical History Moderate persistent asthma Right hip pain Class 1 obesity with body mass index (BMI) of 31.0 to 31.9 in adult Physical exam History of asthma Surgical History No pertinent past surgical history Family History Father Diabetes Alzheimer disease Hypercholesteremia Mother Anxiety Depression Diabetes Social History Housing: Apartment Alcohol intake: never Patient Tobacco Use Status: Never used Tobacco e-Cigarette/Vaping Use: Never Used Second Hand Smoke Exposure: No service: No Current occupational status: employed Current occupational exposures/hazards: No Cognitive needs: No Hearing needs: No Vision needs: Yes Female Reproductive History Menstrual Age of Menarche: 12 Review of Systems Const All systems reviewed & are unremarkable except as noted in HPI and below Denies chills, Denies fatigue, Denies fever(s), Denies frequent falls, Denies weakness, Denies weight gain and Denies weight loss ENT Denies dizziness Card Denies chest pain, Denies leg edema, Denies lightheadedness, Denies palpitations, Reports dyspnea and Reports dyspnea on exertion Resp Denies cough, Reports dyspnea and Reports dyspnea on exertion GI Denies hematochezia Musc Denies abnormal gait, Denies muscle weakness, Denies numbness, Denies radiating pain into limb and Denies tingling Neuro Denies abnormal gait, Denies dizziness, Denies frequent falls, Denies numbness, Denies tingling and Denies weakness Endo Denies fatigue and Denies palpitations Physical Exam Vital Signs: Last Vital Signs Pulse 77 05/10/24 14:33 BP 120/64 05/10/24 14:33 BMI result Body Mass Index 29.8 Const General: cooperative, healthy appearing, comfortable and no acute distress Orientation/consciousness: patient oriented x3 Neck Neck: Yes normal visual inspection Resp Effort & Inspection: normal respiratory effort Auscultation: clear to auscultation bilaterally, no crackles, no rales, no rhonchi and no wheezes Cardio Jugular venous distension: no JVD Rate: regular rate Rhythm: regular rhythm Heart sounds: S1 normal heart sound present, S2 normal heart sound present, no murmurs and no rubs Neuro General: patient oriented x3 Extrem General: Yes normal to inspection, No no pedal edema and No calf tenderness Psych Appearance: grossly normal Mental Status: mental status grossly normal Speech and movement: Normal speech and movement present Office Procedures EKG Details: Today, read by me, normal sinus rhythm with sinus arrhythmia, rate 77, QTC 416 ms [id number], Complete Assessment & Plan Assessment & Plan (1) SOB (shortness of breath): Code(s): R06.02 - Shortness of breath Category: Medical Plan: Symptoms of shortness of breath followed by palpitations and a tightness in her chest which occurs randomly. She will get some shortness of breath brought on by activity but she relates that to asthma. She does not get palpitations or chest tightness with exertion. Anxiety may contribute to her symptoms. She was given an antianxiety medication by her PCP recently and tells me it does help some. She did have an echocardiogram on 03/08/2024 showing EF 56%, no valve abnormalities, small loculated effusion over the left ventricle. A Holter monitor was done on 03/08/2024 for 7 days showing sinus rhythm with an average heart rate of 95 beats per minute, no significant arrhythmia, frequent sinus tachycardia. Her symptoms correlated with sinus tachycardia. Reviewed test results with her. She is quite anxious over the finding of the pericardial effusion and the tachycardia. Spent time reviewing the findings of each and what they mean. Informed her that her small pericardial effusion is most likely temporary, does not need treatment and could be viral in nature. Her heart rate does run on the faster side. She has been working on a reduction in caffeinated beverage and energy drinks. Informed her that these can add to higher heart rates and a feeling of palpitations. 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 No specific cardiac treatment is needed at this time. (2) Heart palpitations: Code(s): R00.2 - Palpitations Category: Medical Plan: As above (3) Abnormal finding on echocardiogram: Code(s): R93.1 - Abnormal findings on diagnostic imaging of heart and coronary circulation Category: Medical Plan: Echocardiogram as above. Small loculated effusion over the left ventricle. No recent illness or change in her symptoms. Blood pressure 120/64, heart rate 77 today. Due to her anxiety and concern will plan for a recheck of a limited echocardiogram 6 months from the last, due in August. Plan to call her with results. Will also arrange for an office visit with her to go overall her symptoms again in 6 months. (4) Tachycardia: Code(s): R00.0 - Tachycardia, unspecified Category: Medical Plan: As above Plan Time spent on chart review, documentation, interview and assessment Orders: Orders CA Echo Limited 09/06/24 I31.39 - Other pericardial effusion (noninflammatory) Coding Level of Care Code Est Pt Level 4 (52196) Complex EM visit Add On G2211 Diagnoses SOB (shortness of breath) R06.02 Heart palpitations R00.2 Abnormal finding on echocardiogram R93.1 Tachycardia R00.0 CPT Codes EKG - CPT: 38275-[id number], Complete ([id number]) Time Spent (min) 30
== END 2024-05-10 14:59 | disposition home or self-care (01) ==
PROVIDERS: PCP Internal Medicine; Visit Provider Nurse Practitioner Family
DX: R06.02 Shortness of breath (principal); R00.2 Palpitations; R93.1 Abnormal findings on diagnostic imaging of heart and coronary circulation; R00.0 Tachycardia, unspecified
CPT/HCPCS: 93010; 99214; G2211

== ENCOUNTER → 2024-05-10 14:30 | Outpatient (BNVA) | payer OTHER, SELFPAY | PROVIDERS: PCP Internal Medicine; Visit Provider Nurse Practitioner Family | DX: R06.02 Shortness of breath (principal); R00.2 Palpitations; R07.89 Other chest pain; J45.40 Moderate persistent asthma, uncomplicated; R00.0 Tachycardia, unspecified; R93.1 Abnormal findings on diagnostic imaging of heart and coronary circulation | CPT/HCPCS: 93005; 99212 ==

== ENCOUNTER 2024-05-25 09:18 | Outpatient (AMB) | payer OTHER, SELFPAY ==
[2024-05-25 10:33] VITALS: BP 102/64; PULSE 81; O2SAT 99; BMI 29.1
--- NOTE | 2024-05-25 10:33 | A.OFFVIS_ITS ---
Vital Signs 05/25/24 10:33 Height 5 ft 9 in Weight 197 lb 4 oz BMI 29.1 BP 102/64 Blood Pressure Location Lt brachial Position Sitting Pulse 81 Pulse Source Doppler Pulse Oximetry (%) 99 Oxygen Delivery Method Room Air Intake Visit Reasons: Asthma Allergies No Known Allergies Allergy (Verified 05/03/24 13:38) HPI HPI Asthma: Details: 29-year-old lady, nonsmoker, with underlying asthma since childhood referred for pulmonary evaluation. Patient states that she previously has been using alb uterol MDI with worsening control, she has been recently put on Breo by her primary care provider and has used it for at least 2 months, also still with suboptimal control of her symptoms. She denies exposure to industrial dusts. Patient does have a dog as a pet. She denies having family history of lung disease. After the last office visit patient completed his pulmonary function tests and immunologic workup. She denies recent exacerbations. [facility] Medical History Moderate persistent asthma Right hip pain Class 1 obesity with body mass index (BMI) of 31.0 to 31.9 in adult Physical exam History of asthma Surgical History No pertinent past surgical history Family History Father Diabetes Alzheimer disease Hypercholesteremia Mother Anxiety Depression Diabetes Social History Housing: Apartment Alcohol intake: never Patient Tobacco Use Status: Never used Tobacco e-Cigarette/Vaping Use: Never Used Second Hand Smoke Exposure: No service: No Current occupational status: employed Current occupational exposures/hazards: No Cognitive needs: No Hearing needs: No Vision needs: Yes Female Reproductive History Menstrual Age of Menarche: 12 Review of Systems Const Denies daytime sleepiness, Denies excessive sweating, Denies fatigue, Denies fever(s), Denies lethargy, Denies malaise, Denies night sweats, Denies snoring and Denies weight loss Eyes Denies blurry vision and Denies itchy eyes ENT Denies nasal congestion, Denies post nasal drip, Denies sinus pain, Denies sinus pressure and Denies other ( Thrush) Card Denies chest pain, Denies pedal edema, Denies dyspnea, Denies orthopnea and Denies paroxysmal nocturnal dyspnea Resp Denies cough, Denies hemoptysis, Denies excessive phlegm production, Denies dyspnea, Denies snoring and Denies wheezing GI Denies abdominal pain and Denies heartburn Musc Denies myalgias, Denies arthralgias and Denies joint swelling Skin/Breast Denies rash Neuro Denies memory loss and Denies seizure-like activity Psych Denies abnormal sleep pattern, Denies anxiety and Denies memory loss Endo Denies excessive sweating, Denies fatigue and Denies heat intolerance Jonathan/Lymph Denies easy bruising Aller/Immun Denies itchy eyes, Denies seasonal rhinorrhea and Denies wheezing Physical Exam Vital Signs: Last Vital Signs Pulse 81 05/25/24 10:33 BP 102/64 05/25/24 10:33 Pulse Ox 99 05/25/24 10:33 Oxygen Delivery Method Room Air 05/25/24 10:33 BMI result Body Mass Index 29.1 Const General: no acute distress and alert Nutritional Appearance: not obese Orientation/consciousness: Other orientation findings ( oriented) HEENT Head: Yes atraumatic Eyes General: appearance normal, both eyes and all related structures Sclerae: sclerae normal EOM: EOMs intact bilaterally Neck Neck: Yes supple Lymphatic: no lymphadenopathy noted Resp Effort & Inspection: normal respiratory effort and no use of accessory muscles Auscultation: clear to auscultation bilaterally Cardio Rate: regular rate Rhythm: regular rhythm Heart sounds: no gallops, no murmurs and no rubs Skin General skin exam: other ( warm) Extrem General: No clubbing, No cyanosis and No edema Assessment & Plan Assessment & Plan (1) Severe persistent asthma: Code(s): J45.50 - Severe persistent asthma, uncomplicated Category: Medical Plan: Results of test reviewed, asthma with suboptimal control on Breo and albuterol MDI. Will request Xolair approval. (2) Environmental allergies: Code(s): Z91.09 - Other allergy status, other than to drugs and biological substances Category: Medical Plan: Results of immunologic testing reviewed patient has significant allergic symptoms. Expect to improve after Xolair initiation. Coding Level of Care Code Est Pt Level 4 (55964) Diagnoses Severe persistent asthma J45.50 Environmental allergies Z91.09
== END 2024-05-25 10:45 | disposition home or self-care (01) ==
PROVIDERS: PCP Internal Medicine; Visit Provider Internal Medicine Pulmonary Disease
DX: J45.50 Severe persistent asthma, uncomplicated (principal)
CPT/HCPCS: 94060; 94727; 94729; 99214

== ENCOUNTER 2024-05-25 10:02 | Outpatient (REF) | payer OTHER, SELFPAY ==
--- NOTE | 2024-05-25 10:04 | PFT_ITS ---
Flows: FEV1: 77 % of predicted at 2.95 L FVC: 88 % of predicted at 3.97 L FEV1/FVC: 74 % Bronchodilator response: Absent Volumes: Total lung capacity: 75 % of predicted at 4.52 L Residual volume: 46 % of predicted at 0.62 L Slow vital capacity: 84 % of predicted at 3.90 L Expiratory reserve volume: 60 % of predicted at 0.96 L Diffusion capacity: Normal Impression: Moderate restrictive ventilatory defect with no bronchodilator response. Decreased expiratory reserve volume suggests extrathoracic restriction likely secondary to abdominal obesity. MTDD
== END 2024-05-25 10:03 | disposition home or self-care (01) ==
LOC: HO.RESP 10:02
PROVIDERS: PCP Internal Medicine; Visit Provider Internal Medicine Pulmonary Disease
DX: J45.40 Moderate persistent asthma, uncomplicated (principal)
CPT/HCPCS: 94010; 94640; 94727; 94729; 99212

== ENCOUNTER 2024-11-15 09:00 | Outpatient (AMB) | payer OTHER, SELFPAY ==
--- NOTE | 2024-11-15 09:11 | MHC.OFFVIS ---
Vital Signs 11/15/24 09:11 Height 5 ft 9 in Intake Visit Reasons: F/u Allergies No Known Allergies Allergy (Verified 11/15/24 09:14) Medication List - Last Reconciled 11/15/24 by Julia Lorenzo CNP albuterol sulfate 5 mg inhalation Q4H PRN albuterol sulfate 90 mcg/actuation 2 puffs inhalation Q4-6H PRN blood pressure test kit-large As directed bupropion HCl XL 150 mg PO QAM 90 days fluticasone furoate-vilanterol 100-25 mcg/dose 1 inh inhalation DAILY 30 days hydrochlorothiazide 25 mg PO DAILY 90 days hydroxyzine HCl 25 mg PO ONCE PRN sumatriptan succinate 25 mg PO Q2-4H PRN 30 days topiramate 25 mg PO DAILY valacyclovir 1,000 mg PO DAILY HPI Comments Details: 29-year-old RH woman, working at [employer], with anxiety and migraine headaches. She was doing okay. She was getting migraine about 2x/week. She would get some ringing in her ear, blurred vision, and sparkles in vision for 2-3 minutes with headaches. Headaches were usually left sided, throbbing-type pain. Sumatriptan as needed did not help. No specific triggers identified. Sleep was okay. Mood was okay. [facility] Medical History (Updated 11/15/24 @ 09:22 by Julia Lorenzo CNP) Essential hypertension Anxiety disorder Migraine with aura Moderate persistent asthma Right hip pain Class 1 obesity with body mass index (BMI) of 31.0 to 31.9 in adult Physical exam History of asthma Surgical History No pertinent past surgical history Family History Father Diabetes Alzheimer disease Hypercholesteremia Mother Anxiety Depression Diabetes Social History Housing: Apartment Alcohol intake: never Patient Tobacco Use Status: Never used Tobacco e-Cigarette/Vaping Use: Never Used Second Hand Smoke Exposure: No service: No Current occupational status: employed Current occupational exposures/hazards: No Cognitive needs: No Hearing needs: No Vision needs: Yes Female Reproductive History Menstrual Age of Menarche: 12 Review of Systems Const Denies chills, Denies daytime sleepiness, Denies difficulty sleeping, Denies fatigue, Denies fever(s), Denies frequent falls, Reports headache(s), Denies increased appetite, Denies poor appetite, Denies snoring, Denies weakness, Denies weight gain and Denies weight loss Eyes Denies loss of vision ENT Reports Normal hearing present, Denies vertigo, Denies dizziness and Reports headache(s) Card Denies chest pain at rest, Denies chest pain with activity, Denies leg edema and Denies palpitations Resp Denies snoring GI Denies constipation, Denies heartburn, Denies diarrhea and Denies nausea Denies urinary frequency, Denies urinary incontinence and Denies urinary urgency Musc Denies abnormal gait, Denies numbness and Denies tingling Skin/Breast Denies dry skin and Denies rash Neuro Reports Normal hearing present, Denies Abnormal speech present, Denies abnormal gait, Denies vertigo, Denies dizziness, Denies frequent falls, Reports headache(s), Denies lack of coordination, Denies loss of vision, Denies memory loss, Denies numbness, Denies restless legs, Denies seizure-like activity, Denies tingling, Denies paresthesias, Denies tremor(s) and Denies weakness Psych Denies anxiety, Denies depression, Denies auditory hallucinations, Denies memory loss, Denies visual hallucinations and Denies suicidal ideation Endo Denies fatigue and Denies palpitations Physical Exam Const Other: General Appearance:? normal, in no acute distress. Skin:? no rashes, no significant birthmarks. Heart:? S1, S2 normal, no murmurs. Lungs:? clear anteriorly and posteriorly. Extremities:? no edema. Psych:? alert, oriented, cognitive function intact, cooperative with exam. Neuro Other: Mental Status:?Normal attention, orientation, memory and affect.? Cranial Nerves:?Pupils are equal, round and reactive to light. External occular muscles are intact. Visual wells are full. Face is symmetrical. Facial sensations are normal. Tongue is midline. Palate elevates symmetrically. Shoulder shrugging is normal. Hearing to bedside conversation is normal. Motor Examination:?Normal muscle tone, bulk and strength,?Deep tendon reflexes are 2+,?Plantars are flexor.? Sensory Exam:?....? Coordination:?No ataxia,?no titubation.? Gait Exam: Within normal limits. Cerebellar Signs:?[id number] and [id number] is normal.? Extrapyramidal System:?No tremor, rigidity with normal facial expressions.? Pronator Drift:?Not present.? Involuntary Movements:?No tremors seen.? Speech:?Normal.? Cranial nerves: Yes Normal hearing present Speech: No Abnormal speech present Assessment & Plan Assessment & Plan (1) Migraine with aura: Code(s): G43.109 - Migraine with aura, not intractable, without status migrainosus Category: Medical Qualifiers: Status migrainosus presence: without status migrainosus Intractability: not intractable Qualified Code(s): G43.109 - Migraine with aura, not intractable, without status migrainosus Plan: Sumatriptan as needed did not help and medication was stopped. Start rizatriptan as needed, use/side effects reviewed. Topiramate dose increased. Plan Meds tried: Topiramate, sumatriptan Medications: New topiramate 25 mg PO BID 180 tabs 0RF 90 days rizatriptan take 1 tab at onset of headache; if no relief may repeat 1 tab after at least 4 hrs; max = 2 tabs/24 hr PO 10 tabs 2RF 30 days Discontinued sumatriptan succinate do not exceed 8 doses per 24 hrs Discontinued Reason: Doctor's Order 25 mg PO Q2-4H 30 days PRN 9 tabs 0RF migraine headache Coding Level of Care Code Est Pt Level 3 (90823) Diagnoses Migraine with aura and without status migrainosus, not intractable G43.109 Status migrainosus presence: without status migrainosus Intractability: not intractable
--- OUTSIDE RECORDS SUMMARY | 2024-11-15 09:21 | XMS_ITS | Clinical Summary ---
Author Organization [facility] Address [address] [place] [address] Care Team Providers Care Entry Level Automotive Technician Name Role Phone Jacque Hunter MD Primary Care Provid er Social History Tobacco Use Types Packs/Day Years Used Date Smoking Tobacco: Never Assessed Sex and Gender Information Value Date Recorded Sex Assigned at Female 09/27/2022 3:53 PM EDT Gender Identity Female 09/27/2022 3:53 PM EDT Sexual Orientation Not on file Job Start Date Occupation Industry Not on file Not on file Not on file Plan of Treatment Health Maintenance Due Date Last Done Comments Hepatitis B Vaccines (1 of 3 - 3-dose series) 1996 Hepatitis C Screening 1996 COVID-19 Vaccine (#1) 1996 Depression Screening 2008 Preventative Health Evaluation 2014 Cervical Cancer Screening (Pap Smear) 2017 Influenza Vaccine (Season Ended) 2025 04/02/2019, 02/04/2018 DTap / Tdap / Td (3 - Td or Tdap) 02/17/2029 02/17/2019, 01/07/2018 Pneumococcal Vaccine Aged Out No long er eligible based on patient's age to complete this topic RSV Ped < 20 months Aged Out No longe r eligible based on patient's age to complete this topic Care Teams Entry Level Automotive Technician Relationship Specialty Start Date End Date Jacque Hunter MD [address] [facility] , [address] [facility] D/B/A: [facility] [place] [id number] PCP - General Internal Medicine 09/27/22
--- OUTSIDE RECORDS SUMMARY | 2024-11-15 09:21 | XMS_ITS | Clinical Summary ---
Author Organization [employer] Address [address] [place] [address] [address] [place] [address] Care Team Providers Care Active Directory Specialist Name Role Phone Unavailable Primary Care Provider Unavailabl e Allergies No known active allergies Medications Ventolin HFA 108 (90 Base) MCG/ACT inhaler INHALE 2 PUFFS EVERY 4 TO 6 HOURS NEEDED FOR SHORTNESS OF BREATH OR FOR WHEEZE Active Active Problems Problem Noted Date Diagnosed Date Asthma 11/08/2024 Severe dental caries 11/08/2024 Missing teeth, acquired 11/08/2024 Dental calculus 11/08/2024 Localized gingival recession 11/08/2024 Encounters Date Type Department Care Team Description 11/08/2024 8:00 AM EDT Office Visit [facility] [address], [place] [phone] Sin Reynoso DDS Severe dental caries (Primary Dx); Missing teeth, acquired; Dental plaque; Dental calculus; Localized gingival recession from Last 3 Months Social History Tobacco Use Types Packs/Day Years Used Date Smoking Tobacco: Never Smokeless Tobacco: Never Tobacco Cessation:Counseling Given: Not Answered Alcohol Use Standard Drinks/Week Comments Never 0 (1 standard drink = 0.6 oz pur e alcohol) Comments Unknown Sex and Gender Information Value Date Recorded Sex Assigned at Female 03/11/2022 10:20 AM EDT Legal Sex Female 10:20 AM EDT Gender Identity Female 11/03/2024 2:35 PM EDT Sexual Orientation Straight 11/03/2024 2: 35 PM EDT Last Filed Vital Signs Vital Sign Reading Time Taken Comments Blood Pressure 122/80 11/08/2024 8:41 AM EDT Pulse 66 11/08/2024 8:41 AM EDT Temperature - - Respiratory Rate - - Oxygen Saturation - - Inhaled Oxygen Concentration - - Weight - - Height - - Body Mass Index - - Plan of Treatment Upcoming Encounters Date Type Department Care Team (Late st Contact Info) Description 12/06/2024 10:00 AM EDT Office Visit [facility] [address] [place] [address] Gaye Mann [address] [place] [address] 12/13/2024 8:00 AM EDT Office Visit [facility] [address], [place] [phone] Sin Reynoso, DDS [address] [place] [address] Health Maintenance Due Date Last Done Comments Depression Screening 1996 HIV Screening 1996 SDOH Screening 1996 Disability Screening 1996 Alcohol/Substance Use Screening 2008 Family Planning (PISQ) 2011 Dental Prophylaxis 06/21/2011 12/18/2010, 12/18/2010 Hepatitis C Screening 2014 Pneumococcal Vaccine: Pediatrics (0 to 5 Years) and At-Risk Patients (6 to 49) Years (1 of 2 - PCV) 2015 Pap Smear 2017 COVID-19 Vaccine ( season) 2024 05/17/2021, 04/27/2021 Influenza Vaccine (#1) 2025 , 04/02/2019, 02/04/2018, Additional history exists Dental Oral Exam 05/11/2025 11/08/2024, 12/18/2010 Tobacco Screening 11/08/2025 11/08/2024 Dental X-Ray: Bitewings 11/09/2025 11/08/2024, 12/18 Dental X-Ray: Full Mouth 11/10/2027 11/08/2024, 01/2011 DTaP/Tdap/Td Vaccines (11 - Td or Tdap) 01/08/2033 01/08/2023, 02/17/2019, 01/07/2018, Additional history exists Zoster Vaccines (1 of 2) 2046 RSV Patients and Patients Aged 60 years or older (1 - 1-dose 75+ series) 2071 HIB Vaccines Aged Out 1996, 07/10, 1996 No longer eligible based on patient's age to complete this topic Meningococcal Vaccine Aged Out 08/25/2007 No maggi keri eligible based on patient's age to complete this topic Hepatitis B Vaccines Completed 12/06/2021, 07/09/2021, 06/08/2021, Additional history exists HPV Vaccines Aged Out No longer eligi ble based on patient's age to complete this topic Hepatitis A Vaccines Aged Out No long er eligible based on patient's age to complete this topic IPV Vaccines Aged Out No longer eligi ble based on patient's age to complete this topic Meningococcal B Vaccine Aged Out No l onger eligible based on patient's age to complete this topic RSV under 20 months Aged Out No longe r eligible based on patient's age to complete this topic Rotavirus Vaccines Aged Out No longer eligible based on patient's age to complete this topic Procedures Procedure Name Priority Date/Time Associated Diagnosis Comments CASE PRESENTATION, DETAILED AND EXTENSIVE TREATMENT PLANNING Routine 11/08/2024 8:00 AM EDT INTRAORAL - COMPLETE SERIES OF RADIOGRAPHIC IMAGES Routine 11/08/2024 8:00 AM EDT COMPREHENSIVE ORAL EVALUATION - NEW OR ESTABLISHED PATIENT Routine 11/08/2024 8:00 AM EDT PROPHYLAXIS - ADULT Routine 12/18/2010 1 2:00 AM EDT from Last 3 Months or Most Recently Relevant to Health Maintenance Insurance [facility] [place] [id number] [facility] MEDICAID STAND ADULT BERTHA DIAZ [phone]
--- OUTSIDE RECORDS SUMMARY | 2024-11-15 09:21 | XMS_ITS ---
Author Name [facility] Organization Unknown Care Team Organization Name Specialty Phone Email Start Date End Da te [facility] [place] [place] 3 [facility] [place] [place] MYESHA HERNANDEZ Primary Care 10/21/2022 10/21/2022
--- OUTSIDE RECORDS SUMMARY | 2024-11-15 09:21 | XMS_ITS | Clinical Summary ---
Author Organization [facility] Address [address] [place] [phone] Phone Care Team Providers Care Transit Driver Name Role Phone Jacque Staton MD Primary Care Provider [phone] Allergies No known active allergies Medications copper (ParaGard T 380A) 380 square mm IUD 1 Device by Intrauterine route Once. Active valACYclovir (VALTREX) 500 mg tablet Take 1 Tablet by mouth daily. And increase to 2 tablets three times daily with an outbreak for 3 days 4 Active PNV no.95/ferrous fum/folic ac ( ORAL) Vit-DSS-Fe Fum-FA (PNV FE FUM/DOCUSATE/FOL IC ACID) 29-1 MG Tab Take 1 Tab by mouth daily. 9 Active Immunizations Name Administration Dates Next Due Influenza Quadravalent, MDCK , 0.5ml, preservative free (Flucelvax) 6mo and older 04/02/2019,02/04/2018 Tdap Tetanus diptheria acell ular pertussis (Boostrix; Adacel) 7yo and older 01/08/2023,02/17/2019,01/07/2018 Surgical History Surgery Date Site/Laterality Comments OTHER SURGICAL HISTORY PROCEDURE: DENIES PREVIOUS SURGERY Medical History Medical History Date Comments Asthma DX:Asthma Type B blood, Rh positive DX:Typ e B blood, Rh positive Vaginal trichomoniasis DX:Vagina l trichomoniasis Cytomegaloviral disease (CMS /HCC V24, CMS/HCC V28) DX:Cytomegaloviral disease ( HCC) Family History Medical History Relation Name Comments Other: Other Daughter autism, adhd, a utoimmune hepatitis Diabetes Father Hyperlipidemia Father Other: Other Father alzhemiers Diabetes Maternal Grandfather Breast cancer Maternal Grandmother Diabetes Maternal Grandmother Depression Mother Diabetes Mother Hyperlipidemia Mother Other: other Sister autism Cervical cancer Neg Hx Colon cancer Neg Hx Ovarian cancer Neg Hx Prostate cancer Neg Hx Relation Name Status Comments Daughter Alive Father Alive Maternal Grandfather Maternal Grandmother Mother Alive Paternal Grandfather Paternal Grandmother Alive Sister Alive Social History Tobacco Use Types Packs/Day Years Used Date Smoking Tobacco: Never Smokeless Tobacco: Never Alcohol Use Standard Drinks/Week Comments Not Currently 0 (1 standard drink = 0.6 oz pur e alcohol) Housing Instability Answer Date Recorde d Are you worried that in the next 2 months you may not have stable housing? No 08/03/2024 Food Access & Nutrition Answer Date Rec orded Do you have access to a vari ety of food including fruits and vegetables? Yes 08/03/2024 Access to Healthcare Answer Date Record ed Within the last 3 months, ho w many times did you visit the emergency department for your medical care? 0 08/03/2024 Health Literacy Answer Date Recorded How often do you need to hav e someone help you when you read instructions, pamphlets, or other written material from your doctor or pharmacy? Never 08/03/2024 Caregiver: How often do you need to have someone help you when you read instructions, pamphlets, or other written material from your doctor or pharmacy? Not on file 08/03/2024 Financial Risk Answer Date Recorded How hard is it for you to pa y for the very basics like food, housing, medical care, and air conditioning / heating? Not very hard 08/03/2024 Transportation Answer Date Recorded Has the lack of transportati on kept you from meetings, work, or from getting things needed for daily living? No Has the lack of transportati on kept you from medical appointments or from getting medications? No 08/03/2024 Social Isolation Answer Date Recorded How often do you feel lonely or isolated from th ose around you? Never 08/03/2024 Food Risk Answer Date Recorded Within the past 12 months we worried whether our food would run out before we got money to buy more. Never true 08/03/2024 Within the past 12 months th e food we bought just didn't last and we didn't have money to get more. Never true 08/03/2024 Dependent Care Answer Date Recorded Do you need help finding or paying for care for your loved ones. For example, exceptional children teacher assistant or elderly care for an older adult? No 08/03/2024 Education Answer Date Recorded Do you think completing more education or training, like finishing a GED, going to college, or learning a trade, would be helpful for you? N/A 08/03/2024 Employment and Income Answer Date Recor ded During the last four weeks, have you been actively looking for work? Patient declined 08/03/2024 Living Situation Answer Date Recorded What is your living situation? 0 08/03/2024 Comments Unknown Sex and Gender Information Value Date Recorded Sex Assigned at Not on file Legal Sex Female 2:16 AM EST Gender Identity Not on file Sexual Orientation Not on file Obstetrics History Last Filed Vital Signs Vital Sign Reading Time Taken Comments Blood Pressure 125/82 10/30/2023 9:30 AM EDT Pulse 68 10/30/2023 9:30 AM EDT Temperature - - Respiratory Rate - - Oxygen Saturation - - Inhaled Oxygen Concentration - - Weight 91.6 kg (202 lb) 10/30/2023 9:30 AM EDT Height 175.3 cm (5' 9 ) 10/30/2023 9:30 AM EDT Body Mass Index 29.83 10/30/2023 9:30 AM EDT Plan of Treatment Health Maintenance Due Date Last Done Comments Hepatitis B Vaccines (1 of 3 - 19+ 3-dose series) 2015 Cervical Cancer Screening: Pap Smear 07/05/2023 07/05/2020, 07/05/2020, 07/03/2020, Additional history exists COVID-19 Vaccine ( season) 2024 Influenza Vaccine (#1) 2025 04/02/2019, 2017 Depression Screening 08/03/2025 08/03/2024, 06/03/19 24 Social Influencers of Health Screening 08/03/2025 08/03/2024 DTaP,Tdap,and Td Vaccines (4 - Td or Tdap) 01/08/2033 01/08/2023, 02/17/2019, 01/07/2018 HIV Screening Completed 10/17/2023, 10/17/2023 Hepatitis C Screening Completed 10/17/2023 HIB Vaccines Aged Out No longer eligi ble based on patient's age to complete this topic HPV Vaccines Aged Out No longer eligi ble based on patient's age to complete this topic Hepatitis A Vaccines Aged Out No long er eligible based on patient's age to complete this topic IPV Vaccines Aged Out No longer eligi ble based on patient's age to complete this topic MMR Vaccines Aged Out No longer eligi ble based on patient's age to complete this topic Meningococcal ACWY Vaccine Aged Out N o longer eligible based on patient's age to complete this topic Meningococcal B Vaccine Aged Out No l onger eligible based on patient's age to complete this topic Pneumococcal Vaccine: Pediatrics (0 to 5 Years) and At-Risk Patients (6 to 64 Years) Aged Out No longer eligible based on patient's age to complete this topic RSV Immunization Patients Under 20 months Aged Out No longer eligible based on patient's age to complete this topic Varicella Vaccines Aged Out No longer eligible based on patient's age to complete this topic Procedures Procedure Name Priority Date/Time Associated Diagnosis Comments HEPATITIS C SCREENING Routine 10/17/2023 HIV SCREENING Routine 10/17/2023 DEPRESSION SCREENING Routine 06/03/2023 HPV Routine 07/05/2020 from Last 3 Months or Most Recently Relevant to Health Maintenance Results * HIV Screening (10/17/2023) [facility] HIV Screening abstracted [facility] Provider HEALTH MAINTENANCE Final Result * Hepatitis C Screening (10/17/2023) [facility] Hepatitis C Screening abstracted Historical Provider HEALTH MAINTENANCE Final Result * Depression Screening (06/03/2023) [facility] Depression Screening abstracted [facility] Provider HEALTH MAINTENANCE Final Result * Cervical Cancer Screening: HPV (07/05/2020) [facility] Cervical Cancer Screening: HPV no interpretation , abstracted [facility] Provider HEALTH MAINTENANCE Final Result from Last 3 Months or Most Recently Relevant to Health [place] [phone] [facility] Care Teams Transit Driver Relationship Specialty Start Date End Date Jacque Staton MD 2 [facility] , [address] [facility] Physician Associ D/B/A: [facility] BERTHA Veliz PCP - General 09/27/22
== END 2024-11-15 09:29 | disposition home or self-care (01) ==
LOC: HO.HSM 09:01
PROVIDERS: PCP Internal Medicine; Referring Provider Internal Medicine; Visit Provider Registered Nurse
DX: G43.109 Migraine with aura, not intractable, without status migrainosus (principal)
CPT/HCPCS: 99213

== ENCOUNTER → 2024-11-15 09:00 | Outpatient (BNVA) | payer OTHER, SELFPAY | PROVIDERS: PCP Internal Medicine; Referring Provider Internal Medicine; Visit Provider Registered Nurse | DX: G43.109 Migraine with aura, not intractable, without status migrainosus (principal) | CPT/HCPCS: 99212 ==

== ENCOUNTER → 2024-11-22 08:11 | Outpatient (REF) | payer OTHER, SELFPAY ==
--- NOTE | 2024-11-22 08:13 | CA_ITS ---
Transthoracic Echocardiogram Patient (Last, First, Middle): Julieta Brady, Gender: Female Date of : 1995 Age: 29 Procedure Date: 11/22/2024 Procedure Type: Transthoracic Echocardiogram Location: OP Height: 175. cm Weight: 92.53 kg BSA: 2.08 m2 Heart Rate: 72 bpm BP: 118 / 70 mmHg Mason Helper: RIA Referring MD: Kimberly Grover RAIL OPERATOR-Jeremy Symptoms: I31.39 - Other pericardial effusion (noninflammatory) Study Quality: Adequate, Limited by order ECG Rhythm: Sinus Conclusions: - No significant pericardial effusion noted. Findings Left Ventricle Normal left ventricular cavity size. The left ventricular systolic function is normal. Pericardium/Pleural No significant pericardial effusion noted. Prior Study Comparison Changes noted compared to prior study dated: 03/08/2024. Measurements 2D Linear Measurements IVSd: 0.92 0.6-0.9/0.6-1.0 cm LVIDd: 4.76 3.9-5.3/4.2-5.9 cm LVIDd Index: 2.29 2.4-3.2/2.2-3.1 cm/m2 LVIDs: 2.90 2.0-3.6 cm LVPWd: 0.99 0.7-1.1 cm LV Mass: 196.59 67-162/88-224 g LV Mass Index: 94.51 43-95/49-115 g/m2 LVOT Diam: 2.00 3.0+(-)1.3 cm Mitral Valve MV Pk E: 0.93 MV PK A: 0.56 MV Decel Time: 270.00 E/A: 1.60 E'Lateral: 15.40 E'Medial: 10.60 E/E' Med: 8.70 E/E' Lat: 6.00 PHT: 79.00 MVA PHT: 2.78 Decel Shasta: 3.42 LVOT LVOT Pk Arun: 0.95 LVOT Mn Arun: 0.67 LVOT VTI: 0.20 LVOT Pk Grad: 4.00 LVOT Mn Grad: 2.00 LVOT Diam: 2.00 LVOT Area: 3.14 Diastolic Function MV Pk E: 0.93 MV Pk A: 0.56 E/A: 1.60 E'Medial: 10.60 E/E' Med: 8.70 E' Laterial: 15.40 E/E' Lat: 6.00 Updated in Other Vendor System with Status of Final Tadeo Goldman MD electronically signed on 11/23/2024 11:42:47 AM with status of Final
--- OUTSIDE RECORDS SUMMARY | 2024-11-22 08:14 | XMS_ITS | Clinical Summary ---
Author Organization [facility] Address [address] [place] [phone] Phone Care Team Providers Care Hedis Analyst Name Role Phone Jacque Staton MD Primary Care Provider [phone] Allergies No known active allergies Medications copper [...] care for your loved ones. For example, child and adolescent psychiatrist or elderly care for an older adult? [...] 5 Years) and At-Risk Patients (6 to 49 Years) Aged Out No longer eligible based [...] Health Maintenance Results * HIV Screening (10/17/2023) [facility] HIV Screening abstracted [facility] Provider HEALTH MAINTENANCE Final Result * Hepatitis C Screening (10/17/2023) [facility] Hepatitis C Screening abstracted Historical Provider HEALTH MAINTENANCE Final Result * Depression Screening (06/03/2023) [facility] Depression Screening abstracted [facility] Provider HEALTH MAINTENANCE Final Result * Cervical Cancer Screening: HPV (07/05/2020) [facility] Cervical Cancer Screening: HPV no interpretation , abstracted [facility] Provider HEALTH MAINTENANCE Final Result from Last 3 Months or Most Recently Relevant to [place] [phone] [facility] [employer] Care Teams Hedis Analyst Relationship Specialty Start Date End Date Jacque Staton MD 2 [facility] , [address] [facility] Physician Associ D/B/A: [facility] BERTHA Veliz PCP - General 09/27/22
--- OUTSIDE RECORDS SUMMARY | 2024-11-22 08:14 | XMS_ITS | Clinical Summary ---
Author Organization [facility] Address [address] [place] [address] Care Team Providers Care Pill Packer Name Role Phone Jacque Hunter MD Primary [...] Cancer Screening (Pap Smear) 2017 Influenza Vaccine (#1) 2025 , 02/04/2018 DTap / Tdap / Td (3 - Td or Tdap) 02/17/2029 02/17/2019, 01/07/2018 Pneumococcal Vaccine Aged Out No long er eligible based on patient's age to complete this topic RSV Ped < 20 months Aged Out No longe r eligible based on patient's age to complete this topic Care Teams Pill Packer Relationship Specialty Start Date End Date Jacque Hunter MD 2 [facility] , [address] [place] [address] Physician Associ D/B/A: [facility] BERTHA Veliz [id number] PCP - General Internal Medicine 09/27/22
--- OUTSIDE RECORDS SUMMARY | 2024-11-22 08:14 | XMS_ITS | Clinical Summary ---
Author Organization [employer] Address [address] [place] [address] [address] [place] [address] Care Team Providers Care Placement Director Name Role Phone Unavailable Primary Care Provider [...] Description 11/08/2024 8:00 AM EDT Office Visit [facility] [address] [place], [place] [phone] Sin Reynoso DDS Severe dental caries (Primary [...] Description 12/06/2024 10:00 AM EDT Office Visit [facility] [address] [place] [phone] Gaye Mann [address] [place] [phone] Health Maintenance Due Date Last Done Comments Depression Screening 1996 HIV Screening 1996 SDOH Screening 1996 Disability Screening 1996 Alcohol/Substance Use Screening 2008 Family Planning (PISQ) 2011 HPV Vaccines (1 - 3-dose series) 2011 Dental Prophylaxis 06/21/2011 12/18/2010, 12/18/2010 Hepatitis C Screening 2014 Pneumococcal Vaccine: Pediatrics (0 to 5 Years) and At-Risk Patients (6 to 49) Years (1 of 2 - PCV) 2015 Pap Smear 2017 COVID-19 Vaccine (3 - season) 2024 05/17/2021, 04/27/2021 Influenza Vaccine (#1) 2025 , 04/02/2019, 02/04/2018, Additional history exists Dental Oral Exam 05/11/2025 11/08/2024, 12/18/2010 Tobacco Screening 11/08/2025 11/08/2024 Dental X-Ray: Bitewings 11/09/2025 11/08/2024, 12/18 Dental X-Ray: Full Mouth 11/10/2027 11/08/2024, 0801/2011 DTaP/Tdap/Td Vaccines (11 - Td or Tdap) [...] Completed 12/06/2021, 07/09/2021, 06/08/2021, Additional history exists Hepatitis A Vaccines Aged Out No long [...] Most Recently Relevant to Health Maintenance Insurance [facility] MEDICAID STAND ADULT
== END ==
LOC: HO.CARD 08:11
PROVIDERS: PCP Internal Medicine; Visit Provider Nurse Practitioner Family
DX: I31.39 Other pericardial effusion (noninflammatory) (principal); R06.02 Shortness of breath
CPT/HCPCS: 93308

== ENCOUNTER → 2024-11-22 08:13 | Outpatient (BNV) | payer OTHER, SELFPAY | PROVIDERS: PCP Internal Medicine; Visit Provider Internal Medicine | DX: I31.39 Other pericardial effusion (noninflammatory) (principal) | CPT/HCPCS: 93308 ==

== ENCOUNTER 2024-12-20 08:29 | Outpatient (AMB) | payer OTHER, SELFPAY ==
[2024-12-20 08:35] VITALS: BP 102/64; PULSE 69; BMI 30.3
--- NOTE | 2024-12-20 08:35 | A.OFFVIS_ITS ---
Vital Signs 12/20/24 08:35 Height 5 ft 9 in Weight 205 lb 0.478 oz BMI 30.3 BP 102/64 Blood Pressure Location Rt brachial Position Sitting Pulse 69 Pulse Source Pulse Oximeter Intake Visit Reasons: f/u on testing's Drama Therapist Required: No Allergies No Known Allergies Allergy (Verified 12/20/24 08:38) Medication List - Last Reconciled 12/20/24 by Kimberly Grover, EJ-C albuterol sulfate 5 mg inhalation Q4H PRN albuterol sulfate 90 mcg/actuation 2 puffs inhalation Q4-6H PRN blood pressure test kit-large As directed bupropion HCl XL 150 mg PO QAM 90 days fluticasone furoate-vilanterol 100-25 mcg/dose 1 inh inhalation DAILY 30 days hydrochlorothiazide 25 mg PO DAILY 90 days hydroxyzine HCl 25 mg PO ONCE PRN rizatriptan take 1 tab at onset of headache; if no relief may repeat 1 tab after at least 4 hrs; max = 2 tabs/24 hr PO 30 days topiramate 25 mg PO BID 90 days valacyclovir 1,000 mg PO DAILY HPI HPI f/u on testing's: Details: Julieta is a 29-year-old female with past medical history of hypertension, asthma, obesity, prior reports of shortness of breath/chest discomfort and heart palpitations, small pericardial effusion who presents for follow-up after recent echocardiogram. Today she reports that she has been feeling very well since her last visit in April. She no longer has chest discomfort. She is not bothered by heart palpitations. She has no concerning shortness of breath, no PND, orthopnea or edema. No lightheadedness, presyncope, syncope. She reports good activity tolerance in his busy with her 4 children. She has no cardiac concerns at this time. [facility] Medical History Essential hypertension Anxiety disorder Migraine with aura Moderate persistent asthma Right hip pain Class 1 obesity with body mass index (BMI) of 31.0 to 31.9 in adult Physical exam History of asthma Surgical History No pertinent past surgical history Family History Father Diabetes Alzheimer disease Hypercholesteremia Mother Anxiety Depression Diabetes Social History Housing: Apartment Alcohol intake: never Patient Tobacco Use Status: Never used Tobacco e-Cigarette/Vaping Use: Never Used Second Hand Smoke Exposure: No service: No Current occupational status: employed Current occupational exposures/hazards: No Cognitive needs: No Hearing needs: No Vision needs: Yes Female Reproductive History Menstrual Age of Menarche: 12 Review of Systems Const All systems reviewed & are unremarkable except as noted in HPI and below ENT Denies dizziness Card Denies chest pain, Denies chest pain at rest, Denies chest pain with activity, Denies rapid heart rate, Denies pedal edema, Denies edema, Denies leg edema, Denies lightheadedness, Denies palpitations, Denies dyspnea, Denies dyspnea on exertion and Denies orthopnea Resp Denies cough, Denies dyspnea and Denies dyspnea on exertion GI Denies hematochezia and Denies change in stool character Musc Denies abnormal gait, Denies limited range of motion, Denies muscle cramps, Denies muscle weakness, Denies numbness, Denies radiating pain into limb, Denies stiffness and Denies tingling Neuro Denies abnormal gait, Denies dizziness, Denies numbness and Denies tingling Endo Denies palpitations Physical Exam Vital Signs: Last Vital Signs Pulse 69 12/20/24 08:35 BP 102/64 12/20/24 08:35 BMI result Body Mass Index 30.3 Const General: cooperative, healthy appearing, comfortable and no acute distress Orientation/consciousness: patient oriented x3 Neck Neck: Yes normal visual inspection Resp Effort & Inspection: normal respiratory effort Auscultation: clear to auscultation bilaterally, no crackles, no rales, no rhonchi and no wheezes Cardio Jugular venous distension: no JVD Rate: regular rate Rhythm: regular rhythm Heart sounds: S1 normal heart sound present, S2 normal heart sound present, no murmurs and no rubs Neuro General: patient oriented x3 Extrem General: Yes normal to inspection, No no pedal edema and No calf tenderness Psych Appearance: grossly normal Mental Status: mental status grossly normal Speech and movement: Normal speech and movement present Assessment & Plan Assessment & Plan (1) SOB (shortness of breath): Code(s): R06.02 - Shortness of breath Category: Medical Plan: Prior reports of shortness of breath followed by palpitations, chest tightness which occurred randomly and has since fully resolved. Echocardiogram on 03/08/2024 showing EF 56%, no valve abnormalities, small loculated effusion over the left ventricle. A Holter monitor was done on 03/08/2024 for 7 days showing sinus rhythm with an average heart rate of 95 beats per minute, no significant arrhythmia, frequent sinus tachycardia. Her symptoms correlated with sinus tachycardia. Low likelihood of coronary artery disease at her young age. No clear cardiac cause for her shortness of breath and chest tightness. She had underlying history of anxiety which likely contributed to her symptoms. Currently feeling well with no cardiac concerns. Cardiology follow-up PRN. (2) Heart palpitations: Code(s): R00.2 - Palpitations Category: Medical Plan: As above (3) Abnormal finding on echocardiogram: Code(s): R93.1 - Abnormal findings on diagnostic imaging of heart and coronary circulation Category: Medical Plan: Prior echocardiogram with Small loculated effusion over the left ventricle. A repeat limited echocardiogram done 11/22/2024 shows no significant effusion. Patient informed. No further testing needed. Plan I discussed with the patient that her cardiovascular status is stable, with the pericardial effusion resolved and normal heart function observed on the ultrasound. I advised her that no further cardiology follow-up is necessary unless she experiences new symptoms. We agreed that she should continue her current lifestyle and monitor for any new cardiac symptoms. Patient Instructions: - Monitor for any new cardiac symptoms. - Maintain current lifestyle and activity level. - Follow up with cardiology only if new symptoms develop. Patient was informed and verbally consented to the use of an ambient scribe for clinic note documentation during this visit. Visit time spent on chart review, interview, assessment, orders, documentation. Coding Level of Care Code Est Pt Level 2 (92182) Complex EM visit Add On G2211 Diagnoses SOB (shortness of breath) R06.02 Heart palpitations R00.2 Abnormal finding on echocardiogram R93.1 Time Spent (min) 15
--- OUTSIDE RECORDS SUMMARY | 2024-12-20 08:48 | XMS_ITS | Clinical Summary ---
Author Organization [facility] Address [address] [place] [address] Care Team Providers Care Tax Staff Accountant Name Role Phone Jacque Hunter MD Primary [...] age to complete this topic Care Teams Tax Staff Accountant Relationship Specialty Start Date End Date Jacque Hunter MD 2 [facility] , [address] [place] [address] Physician Associ D/B/A: [facility] BERTHA Veliz [id number] PCP - General Internal Medicine 09/27/22
--- OUTSIDE RECORDS SUMMARY | 2024-12-20 08:48 | XMS_ITS | Clinical Summary ---
Author Organization [employer] Address [address] [place] [address] [address]t h Floor [place] [id number] Care Team Providers Care Oncology Research Rn Name Role Phone Unavailable Primary Care Provider [...] Encounters Date Type Department Care Team Description 12/06/2024 10:00 AM EDT Office Visit [facility]ULT [facility] [address] [place] [address] Gaye Mann 11/08/2024 8:00 AM EDT Office Visit [facility] ADULT [facility] [address] [place] [address] Sin Reynoso DDS Severe dental caries (Primary [...] Sign Reading Time Taken Comments Blood Pressure 126/76 12/06/2024 10:06 AM EDT Pulse 72 12/06/2024 10:06 AM EDT Temperature - - Respiratory Rate - - Oxygen Saturation - - Inhaled Oxygen Concentration - - Weight - - Height - - Body Mass Index - - Plan of Treatment Upcoming Encounters Date Type Department Care Team ([facility] st Contact Info) Description 06/20/2025 10:00 AM EST Office Visit [facility] ADULT DENTAL [address], [place] [phone] Angela, Carlita [address] [place] [address] Health Maintenance Due Date Last Done Comments Depression Screening 1996 HIV Screening 1996 SDOH Screening 1996 Disability Screening 1996 Alcohol/Substance Use Screening 2008 Family Planning (PISQ) 2011 HPV Vaccines (1 - 3-dose series) 2011 Hepatitis C Screening 2014 Pneumococcal Vaccine: Pediatrics (0 to 5 Years) and At-Risk Patients (6 to 49) Years (1 of 2 - PCV) 2015 Pap Smear 2017 COVID-19 Vaccine ( season) 2024 05/17/2021, 04/27/2021 Influenza Vaccine (#1) 2025 , 04/02/2019, 02/04/2018, Additional history exists Dental Oral Exam 05/11/2025 11/08/2024, 12/18/2010 Dental Prophylaxis 06/09/2025 12/06/2024, 0 12/18/2010, 12/18/2010 Dental X-Ray: Bitewings 11/09/2025 11/08/2024, 12/18 Tobacco Screening 12/06/2025 12/06/2024 Dental X-Ray: Full Mouth 11/10/2027 11/08/2024, 08/01/2011 DTaP/Tdap/Td Vaccines (11 - Td or Tdap) [...] PRESENTATION, DETAILED AND EXTENSIVE TREATMENT PLANNING Routine 12/06/2024 10:00 AM EDT PROPHYLAXIS - ADULT Routine 12/06/2024 1 0:00 AM EDT CASE PRESENTATION, DETAILED AND EXTENSIVE TREATMENT PLANNING Routine 11/08/2024 8:00 AM EDT INTRAORAL - COMPLETE SERIES OF RADIOGRAPHIC IMAGES Routine 11/08/2024 8:00 AM EDT COMPREHENSIVE ORAL EVALUATION - NEW OR ESTABLISHED PATIENT Routine 11/08/2024 8:00 AM EDT from Last 3 Months Insurance [facility] [place] [id number] [facility] MEDICAID STAND ADULT BERTHA DIAZ [id number]
--- OUTSIDE RECORDS SUMMARY | 2024-12-20 08:49 | XMS_ITS | Clinical Summary ---
Author Organization [facility] Address [address] [place] [phone] Phone Care Team Providers Care Senior Software Systems Engineer Name Role Phone Jacque Staton MD Primary Care Provider [phone] Allergies No known active allergies Medications copper [...] care for your loved ones. For example, children's lunchroom supervisor or elderly care for an older adult? [...] 2024 Influenza Vaccine (#1) 2025 04/02/2019, 2017 Social Influencers of Health Screening 08/03/2025 08/03/2024 DTaP,Tdap,and Td Vaccines (4 - Td or Tdap) 01/08/2033 01/08/2023, 02/17/2019, 01/07/2018 HIV Screening Completed 10/17/2023, 10/17/2023 Hepatitis C Screening Completed 10/17/2023 Depression Screening Completed 08/03/2024, 06/03/19 24 HIB Vaccines Aged Out No longer eligi [...] Health Maintenance Results * HIV Screening (10/17/2023) [facility] HIV Screening abstracted [facility] Provider HEALTH MAINTENANCE Final Result * Hepatitis C Screening (10/17/2023) [facility] Hepatitis C Screening abstracted [facility] Provider HEALTH MAINTENANCE Final Result * Depression Screening (06/03/2023) [facility] Depression Screening abstracted [facility] Provider HEALTH MAINTENANCE Final Result * Cervical Cancer Screening: HPV (07/05/2020) [facility] Cervical Cancer Screening: HPV no interpretation , abstracted us Historical Provider HEALTH MAINTENANCE Final Result from Last 3 Months or Most Recently Relevant to Health Maintenance Insurance [facility] Care Teams Senior Software Systems Engineer Relationship Specialty Start Date End Date Jacque Staton MD [address] [place] [address] , [address] [facility] Physician Associ D/B/A: [facility] BERTHA Veliz PCP - General 09/27/22
== END 2024-12-20 09:04 | disposition home or self-care (01) ==
LOC: HO.HCS 08:30
PROVIDERS: PCP Internal Medicine; Visit Provider Nurse Practitioner Family
DX: R06.02 Shortness of breath (principal); R00.2 Palpitations; R93.1 Abnormal findings on diagnostic imaging of heart and coronary circulation
CPT/HCPCS: 99212

== ENCOUNTER → 2024-12-20 08:29 | Outpatient (BNVA) | payer OTHER, SELFPAY | PROVIDERS: PCP Internal Medicine; Visit Provider Nurse Practitioner Family | DX: R93.1 Abnormal findings on diagnostic imaging of heart and coronary circulation (principal); R00.2 Palpitations; R06.02 Shortness of breath | CPT/HCPCS: 99212 ==

== ENCOUNTER 2025-02-07 07:56 | Outpatient (AMB) | payer OTHER, SELFPAY ==
--- OUTSIDE RECORDS SUMMARY | 2025-02-07 07:59 | XMS_ITS | Clinical Summary ---
Author Organization [facility] Address [address] [place] [phone] Phone Care Team Providers Care Associate Director Finance Name Role Phone Jacque Staton MD Primary Care Provider Allergies No known active allergies Medications copper [...] Tab by mouth daily. 9 Active Immunizations Immunization Administration Dates Next Due Influenza Quadravalent, MDCK [...] care for your loved ones. For example, early childhood services coordinator or elderly care for an older adult? [...] Date Recorded What is your living situation? Unrecognized valu e 08/03/2024 Comments Unknown Sex and Gender Information [...] Additional history exists COVID-19 Vaccine ( season) 2025 Influenza Vaccine (#1) 2025 04/02/2019, 2017 Social [...] Health Maintenance Results * HIV Screening (10/17/2023) [facility] HIV Screening abstracted [facility] Provider HEALTH MAINTENANCE Final Result * Hepatitis C Screening (10/17/2023) [facility] Hepatitis C Screening abstracted [facility] Provider HEALTH MAINTENANCE Final Result * Depression Screening (06/03/2023) [facility] Depression Screening abstracted Result [facility] Provider HEALTH MAINTENANCE Final Result * Cervical Cancer Screening: HPV (07/05/2020) [facility] Cervical Cancer Screening: HPV no interpretation , abstracted [facility] Provider HEALTH MAINTENANCE Final Result from Last 3 Months or Most Recently Relevant to Health [place] [id number] [facility] [employer] Care Teams Associate Director Finance Relationship Specialty Start Date End Date Jacque Staton MD 2 [facility] , [address] [facility] Physician Associ D/B/A: [facility] BERTHA Veliz PCP - General 09/27/22
--- OUTSIDE RECORDS SUMMARY | 2025-02-07 07:59 | XMS_ITS | Clinical Summary ---
Author Organization [facility] Address [address] [place] [address] Care Team Providers Care Ice Guard Tester Name Role Phone Jacque Hunter MD Primary [...] age to complete this topic Care Teams Ice Guard Tester Relationship Specialty Start Date End Date Jacque Hunter MD 2 [facility] , [address] [place] [address] Physician Associ D/B/A: [facility] BERTHA Veliz [id number] PCP - General Internal Medicine 09/27/22
--- OUTSIDE RECORDS SUMMARY | 2025-02-07 07:59 | XMS_ITS | Clinical Summary ---
Author Organization [employer] Address [address] [place] [address] [address]t h [address] [place] [id number] Care Team Providers Care Dining Manager Name Role Phone Unavailable Primary Care Provider [...] 10:00 AM EDT Office Visit [facility] ADULT DENTAL [address] [place] [address] Gaye Mann 11/08/2024 8:00 AM EDT Office Visit [facility] ADULT DENT[facility] [address] [place] [address] Sin Reynoso DDS Severe dental caries (Primary [...] Upcoming Encounters Date Type Department Care Team ([facility] st Contact Info) Description 06/20/2025 10:15 AM EST Office Visit [facility] ADULT DENTAL [address] [place], [place] [phone] Angela, Carlita [address] [place] [address] Health Maintenance Due Date Last Done Comments [...] 2015 Pap Smear 2017 COVID-19 Vaccine ( - season) 2025 05/17/2021, 04/27/2021 Influenza Vaccine (#1) 2025 , [...] AM EDT from Last 3 Months Insurance [facility] [place] [address] D[facility]AL-[facility] MEDICAID STAND ADULT [place]THA DIAZ [phone]
--- NOTE | 2025-02-07 08:33 | A.OFFVIS_ITS ---
Intake Visit Reasons: 2m migraine Allergies No Known Allergies Allergy (Verified 02/07/25 08:36) Medication List - Last Reconciled 02/07/25 by Julia Lorenzo CNP albuterol sulfate 5 mg inhalation Q4H PRN albuterol sulfate 90 mcg/actuation 2 puffs inhalation Q4-6H PRN blood pressure test kit-large As directed bupropion HCl XL 150 mg PO QAM 90 days fluticasone furoate-vilanterol 100-25 mcg/dose 1 inh inhalation DAILY 30 days hydrochlorothiazide 25 mg PO DAILY 90 days hydroxyzine HCl 25 mg PO ONCE PRN rizatriptan take 1 tab at onset of headache; if no relief may repeat 1 tab after at least 4 hrs; max = 2 tabs/24 hr PO 30 days topiramate 25 mg PO BID 90 days valacyclovir 1,000 mg PO DAILY HPI Comments Details: 29-year-old RH woman, working at [employer], with anxiety and migraine headaches. She was doing okay. Migraines were better with increased dose of topiramate and has not had migraine in a while. She had to use rizatriptan 2x since her last appointment with good relief. Previously, she would get some ringing in her ear, blurred vision, and sparkles in vision for 2-3 minutes with headaches. Headaches were usually left sided, throbbing-type pain. No specific triggers identified. Sleep was okay. Mood was okay. [facility] Medical History Essential hypertension Anxiety disorder Migraine with aura Moderate persistent asthma Right hip pain Class 1 obesity with body mass index (BMI) of 31.0 to 31.9 in adult Physical exam History of asthma Surgical History No pertinent past surgical history Family History Father Diabetes Alzheimer disease Hypercholesteremia Mother Anxiety Depression Diabetes Social History Housing: Apartment Alcohol intake: never Patient Tobacco Use Status: Never used Tobacco e-Cigarette/Vaping Use: Never Used Second Hand Smoke Exposure: No service: No Current occupational status: employed Current occupational exposures/hazards: No Cognitive needs: No Hearing needs: No Vision needs: Yes Female Reproductive History Menstrual Age of Menarche: 12 Review of Systems Const Denies chills, Denies daytime sleepiness, Denies difficulty sleeping, Denies fatigue, Denies fever(s), Denies frequent falls, Reports headache(s), Denies increased appetite, Denies poor appetite, Denies snoring, Denies weakness, Denies weight gain and Denies weight loss Eyes Denies loss of vision ENT Denies vertigo, Denies dizziness and Reports headache(s) Card Denies chest pain at rest, Denies chest pain with activity, Denies leg edema and Denies palpitations Resp Denies snoring GI Denies constipation, Denies heartburn, Denies diarrhea and Denies nausea Denies urinary frequency, Denies urinary incontinence and Denies urinary urgency Musc Denies abnormal gait, Denies numbness and Denies tingling Skin/Breast Denies dry skin and Denies rash Neuro Denies abnormal gait, Denies vertigo, Denies dizziness, Denies frequent falls, Reports headache(s), Denies lack of coordination, Denies loss of vision, Denies memory loss, Denies numbness, Denies restless legs, Denies seizure-like activity, Denies tingling, Denies paresthesias, Denies tremor(s) and Denies weakness Psych Denies anxiety, Denies depression, Denies auditory hallucinations, Denies memory loss, Denies visual hallucinations and Denies suicidal ideation Endo Denies fatigue and Denies palpitations Physical Exam Const Other: General Appearance:? normal, in no acute distress. Skin:? no rashes, no significant birthmarks. Heart:? S1, S2 normal, no murmurs. Lungs:? clear anteriorly and posteriorly. Extremities:? no edema. Psych:? alert, oriented, cognitive function intact, cooperative with exam. Neuro Other: Mental Status:?Normal attention, orientation, memory and affect.? Cranial Nerves:?Pupils are equal, round and reactive to light. External occular muscles are intact. Visual wells are full. Face is symmetrical. Facial sensations are normal. Tongue is midline. Palate elevates symmetrically. Shoulder shrugging is normal. Hearing to bedside conversation is normal. Sensory Exam:?....? Coordination:?No ataxia,?no titubation.? Gait Exam: Within normal limits. Cerebellar Signs:?[id number]-cyap is okay. Extrapyramidal System:?No tremor, rigidity with normal facial expressions.? Pronator Drift:?Not present.? Involuntary Movements:?No tremors seen.? Speech:?Normal.? Assessment & Plan Assessment & Plan (1) Migraine with aura: Code(s): G43.109 - Migraine with aura, not intractable, without status migrainosus Category: Medical Qualifiers: Status migrainosus presence: without status migrainosus Intractability: not intractable Qualified Code(s): G43.109 - Migraine with aura, not intractable, without status migrainosus Plan: Continue topiramate 25mg 1 tablet twice a day. Continue rizatriptan 10mg 1 tablet as needed for migraines. Plan Meds tried: Topiramate, sumatriptan Coding Level of Care Code Est Pt Level 3 (99472) Diagnoses Migraine with aura and without status migrainosus, not intractable G43.109 Status migrainosus presence: without status migrainosus Intractability: not intractable
== END 2025-02-07 08:41 | disposition home or self-care (01) ==
LOC: HO.HSM 07:57
PROVIDERS: PCP Internal Medicine; Visit Provider Registered Nurse
DX: G43.109 Migraine with aura, not intractable, without status migrainosus (principal)
CPT/HCPCS: 99213

== ENCOUNTER → 2025-02-07 07:56 | Outpatient (BNVA) | payer OTHER, SELFPAY | PROVIDERS: PCP Internal Medicine; Visit Provider Registered Nurse | DX: G43.109 Migraine with aura, not intractable, without status migrainosus (principal); Z79.899 Other long term (current) drug therapy | CPT/HCPCS: 99212 ==